=== PATIENT | male | born 1925 | race Caucasian/White ===

== ENCOUNTER 2016-05-09 08:37 | Inpatient (IN) ==
[2016-05-09] MEDS ORDERED: 0.9 % Sodium Chloride 1,000 ML IVC ONE (09:31)
--- NOTE | 2016-05-09 09:43 | Emergency Department Note ---
Disposition Clinical Impression: Elevated troponin I level, Generalized weakness, ANASTACIO (acute kidney injury), Dehydration, Nonspecific ST-T changes CKD (chronic kidney disease) Qualifiers: Chronic kidney disease stage: unspecified stage Qualified Code(s): N18.9 - Chronic kidney disease, unspecified Anemia Qualifiers: Anemia type: unspecified type Qualified Code(s): D64.9 - Anemia, unspecified Disposition: Admitted As Inpatient Condition: Fair Referrals: Gunner Harley DO [Primary Care Provider] - Forms: ED Satisfaction Letter Time of Disposition: 11:03 (Accepted to Dr. Hawkins. ) General Adult HPI - General Chief complaint: ED Weakness Stated complaint: weakness, vomiting Time Seen by Provider: 05/09/16 09:10 Source: patient Limitations: no limitations Nursing Notes Reviewed: Yes Vital Signs Reviewed: Yes - History of Present Illness HPI Narrative: Patient is an 89-year-old male with past history of diabetes, CKD. He presents today due to generalized weakness. He states that he had nausea and vomiting for the past 2 days, however, this is resolving. Now, he woke up today and just feels overall weak. He has not eaten or drank anything in 2-3 days. He denies any fevers, current nausea, vomiting, abdominal pain, chest pain, shortness of breath. He does admit to a dry cough that he states is baseline for him. Denies any difficulty with urination, burning with urination, blood in urine, blood in stool. Pain Scale: 3 - Related Data Home Medications Medication Instructions Recorded Confirmed Amlodipine [Norvasc] 5 mg PO QPM 02/11/15 05/09/16 Aspirin 81 mg PO QPM 02/11/15 05/09/16 Calcitriol [Rocaltrol] 0.25 mcg PO QAM 02/11/15 05/09/16 Doxazosin [Cardura] 2 mg PO HS 02/11/15 05/09/16 Isosorbide MONOnitrate [Isosorbide 60 mg PO QPM 02/11/15 05/09/16 Mononitrate] Levothyroxine [Synthroid] 75 mcg PO QAM 02/11/15 05/09/16 Torsemide [Demadex] 20 mg PO QAM 02/11/15 05/09/16 Allopurinol [Zyloprim 100 MG] 100 mg PO DAILY 05/09/16 05/09/16 Ferrous Sulfate [Iron] 325 mg PO BID 05/09/16 05/09/16 Omeprazole [Omeprazole] 10 mg PO DAILY 05/09/16 05/09/16 Sodium Bicarbonate 650 mg PO BID 05/09/16 05/09/16 Previous Rx's Medication Instructions Recorded Albuterol Sulfate [Albuterol 1 puff IH Q6HR 5 Days 02/14/15 Inhaler] Allergies Allergy/AdvReac Type Severity Reaction Status Date / Time furosemide [From Lasix] Allergy Rash Verified 05/09/16 10:43 Penicillins [PCN] Allergy Rash Verified 05/09/16 10:43 All systems ED: reviewed and negative except as stated. Past Medical History - Past Medical History Attestation: Yes The following information was validated with the patient. Medical history: Reports: coronary artery disease, diabetes, GERD, hypertension , kidney stones, myocardial infarction, other Surgical history: Reports: carotid endarterectomy, cholecystectomy, herniorrhaphy Psychiatric history: Reports: no psych history - Social History Smoking Status: Former smoker Smokeless Tobacco Status: No Alcohol use: Reports: none Drug use: Reports: none Physical Exam - General Limitations: no limitations General appearance: alert, in no apparent distress - Head Head exam: atraumatic, normocephalic, normal inspection - Eye Eye exam: Present: normal appearance, PERRL, EOMI - ENT ENT exam: normal exam, normal oropharynx, mucous membranes moist - Neck Neck exam: Present: normal inspection, full ROM, trachea midline - Chest Chest inspection: Present: normal inspection, symmetric chest wall rise - Respiratory Respiratory exam: Present: normal lung sounds bilaterally. Absent: respiratory distress, wheezes, stridor, accessory muscle use, prolonged expiratory phase - Cardiovascular Cardiovascular exam: Present: regular rate, normal rhythm, normal heart sounds - Abdominal Exam Abdominal exam: Present: soft, Non-Tender. Absent: tenderness, distention, guarding, rebound, rigidity - Extremities Exam Extremities exam: Present: normal inspection, full ROM. Absent: tenderness, pedal edema - Back Exam Back exam: Present: normal inspection, full ROM. Absent: tenderness - Neurological Exam Neurological exam: Present: alert, oriented X3, other (Patient has no deficit in sensory of bilateral upper or lower extremity. He does have some mild weakness of the right lower extremity but states that this is chronic. Otherwise, neuro exam was benign.). Absent: CN II-XII intact - Psychiatric Psychiatric exam: Present: normal affect, normal mood - Skin Skin exam: Present: warm, dry, intact, normal color Course Course Narrative: Vitals within normal limits. Physical exam did show some mild weakness of the right lower extremity, the patient states that this is chronic for him and as in present for several years. Otherwise, the rest of his neuro exam, heart, lung, abdomen exam was benign. Patient is likely dehydrated from no food or drink for the past 2 days. Will draw basic labs, chest x-ray, EKG, troponin and give 1 L normal saline bolus. Patient denies any current nausea or pain. 10:[address] changes, elevated trop at 0.07, anemia, acute on chronic CKD, and generalized weakness. Due to findings of nonspecific ST changes and elevated troponin along with generalized weakness, we will admit for observation. Patient does state that he feels better after getting 1 L normal saline bolus. This could all be from dehydration, but there is still concern for cardiac concern. Vital Signs Temperature 99.4 F 05/09/16 08:39 Pulse Rate 94 05/09/16 08:39 Respiratory Rate 16 05/09/16 08:39 Blood Pressure 142/71 05/09/16 08:39 O2 Sat by Pulse Oximetry 97 05/09/16 08:39 Temperature 99.4 F 05/09/16 08:39 Pulse Rate 96 05/09/16 10:48 Respiratory Rate 16 05/09/16 10:48 Blood Pressure 150/83 05/09/16 10:48 O2 Sat by Pulse Oximetry 95 05/09/16 10:48 Oxygen Delivery Oxygen Delivery Room Air Medical Decision Making - [facility] Narrative Medical decision making narrative: 0:[address] changes, elevated trop at 0.07, anemia, acute on chronic CKD, and generalized weakness. Due to findings of nonspecific ST changes and elevated troponin along with generalized weakness, we will admit for observation. Patient does state that he feels better after getting 1 L normal saline bolus. This could all be from dehydration, but there is still concern for cardiac concern. - Medical Records Medical records reviewed: Yes I reviewed the patient's medical records. - Lab Data Lab results reviewed: Yes I reviewed the patient's lab results. Result diagrams: 05/09/16 09:45 05/09/16 09:45 Lab Results 05/09/16 05/09/16 05/09/16 Range/Units 09:45 09:45 09:45 WBC 7.8 (4.3-11.1) K/mcL RBC 3.54 L (4.19-5.50) M/mcL Hgb 9.7 L (12.9-16.9) g/dL Hct 29.4 L (37.5-50.1) % MCV 83.1 (83.0-100.0) fL MCH 27.4 L (28.0-33.3) pg MCHC 33.0 (31.6-35.5) g/dL RDW 14.9 H (11.5-14.5) % Plt Count 138 L (140-400) K/mcL MPV 11.0 (9.4-12.4) fL Immature Gran % 0.4 (0-4) % Seg Neutrophils % 74.9 % Lymphocytes % 13.4 % Monocytes % 10.9 % Eosinophils % 0.1 % Basophils % 0.3 % Neutrophils # 5.8 (1.6-8.9) K/mcL Lymphocytes # 1.0 (0.6-4.6) K/mcL Monocytes # 0.9 (0.0-1.3) K/mcL Eosinophils # 0.0 (0.0-0.6) K/mcL Basophils # 0.0 (0.0-0.2) K/mcL Sodium 136 (136-145) mEq/L Potassium 3.6 (3.5-4.5) mEq/L Chloride 99 (98-109) mEq/L Carbon Dioxide 23 (19-29) mEq/L BUN 78 H (8-26) mg/dL Creatinine 2.74 H (0.72-1.25) mg/dL Est GFR ( Amer) 27 L (> 60) Est GFR (Non-Af Amer) 22 L (> 60) BUN/Creatinine Ratio 28 H (6-26) Glucose 197 H (70-99) mg/dL Calculated Osmolality 311 H (280-300) Calcium 9.0 (8.6-10.8) mg/dL Total Bilirubin 1.0 (0.2-1.2) mg/dL AST 10 (5-34) Units/L ALT 7 (0-55) Units/L Alkaline Phosphatase 72 (38-126) Units/L Troponin I 0.07 H* (0-0.03) ng/mL Serum Total Protein 6.6 (6.0-8.3) g/dL Albumin 2.8 L (3.5-5.0) g/dL Globulin 3.8 H (2.4-3.5) g/dL Albumin/Globulin Ratio 0.7 L (1.1-2.2) TSH 1.598 (0.350-4.840) mcIU/mL Urine Color (Yellow) Urine Clarity (Clear) Urine pH (5.0-8.0) pH Units Ur Specific [place] (1.010-1.025) Urine Protein (Neg-Trace) mg/dL Urine Glucose (UA) (Normal) mg/dL Urine Ketones (Negative) mg/dL Urine Blood (Negative) Urine Nitrite (Negative) Urine Bilirubin (Negative) Urine Urobilinogen (Normal) mg/dL Ur Leukocyte Esterase (Negative) Urine Microscopic RBC (0-3) per hpf Urine Microscopic WBC (0-3) per hpf Ur Squamous Epith Cells (None-Few) per lpf Urine Bacteria (None-Few) per hpf Hyaline Casts (None-Few) per lpf Ur Culture Indicated? (NO) 05/09/16 Range/Units 10:32 WBC (4.3-11.1) K/mcL RBC (4.19-5.50) M/mcL Hgb (12.9-16.9) g/dL Hct (37.5-50.1) % MCV (83.0-100.0) fL MCH (28.0-33.3) pg MCHC (31.6-35.5) g/dL RDW (11.5-14.5) % Plt Count (140-400) K/mcL MPV (9.4-12.4) fL Immature Gran % (0-4) % Seg Neutrophils % % Lymphocytes % % Monocytes % % Eosinophils % % Basophils % % Neutrophils # (1.6-8.9) K/mcL Lymphocytes # (0.6-4.6) K/mcL Monocytes # (0.0-1.3) K/mcL Eosinophils # (0.0-0.6) K/mcL Basophils # (0.0-0.2) K/mcL Sodium (136-145) mEq/L Potassium (3.5-4.5) mEq/L Chloride (98-109) mEq/L Carbon Dioxide (19-29) mEq/L BUN (8-26) mg/dL Creatinine (0.72-1.25) mg/dL Est GFR ( Amer) (> 60) Est GFR (Non-Af Amer) (> 60) BUN/Creatinine Ratio (6-26) Glucose (70-99) mg/dL Calculated Osmolality (280-300) Calcium (8.6-10.8) mg/dL Total Bilirubin (0.2-1.2) mg/dL AST (5-34) Units/L ALT (0-55) Units/L Alkaline Phosphatase (38-126) Units/L Troponin I (0-0.03) ng/mL Serum Total Protein (6.0-8.3) g/dL Albumin (3.5-5.0) g/dL Globulin (2.4-3.5) g/dL Albumin/Globulin Ratio (1.1-2.2) TSH (0.350-4.840) mcIU/mL Urine Color Yellow (Yellow) Urine Clarity Clear (Clear) Urine pH 5.5 (5.0-8.0) pH Units Ur Specific [place] 1.010 (1.010-1.025) Urine Protein 100 H (Neg-Trace) mg/dL Urine Glucose (UA) Normal (Normal) mg/dL Urine Ketones Negative (Negative) mg/dL Urine Blood Trace H (Negative) Urine Nitrite Negative (Negative) Urine Bilirubin Negative (Negative) Urine Urobilinogen Normal (Normal) mg/dL Ur Leukocyte Esterase Negative (Negative) Urine Microscopic RBC 5-15 H (0-3) per hpf Urine Microscopic WBC 0-3 (0-3) per hpf Ur Squamous Epith Cells Moderate H (None-Few) per lpf Urine Bacteria None Seen (None-Few) per hpf Hyaline Casts None Seen (None-Few) per lpf Ur Culture Indicated? NO (NO) - Radiology Data Radiology results reviewed: Yes I reviewed the patient's radiology results. Chest X-Ray 05/09/16 09:31 IMPRESSION: No acute cardiopulmonary disease. D/ / 05/09/2016 10:22:58 Sandoval Watkins MD / naomi Interpreting Provider: Sandoval Watkins MD - EKG Data EKG #1 EKG attestation: Yes I reviewed and interpreted this EKG. EKG results narrative: 05/09/2016 NSR. Rate 94. Left axis deviation. There is evidence of right bundle branch block, however, previous EKG shows possible right bundle-branch block. There is also a new T-wave inversion in V1 compared to previous EKG. Otherwise , ST depression in V4, V5 are consistent with previous EKG in February 2015. Overall - nonspecific ST changes. Attestation Statement - Attestation Attestation: Patient was seen with resident physician. I reviewed the history, physical, assessment and plan, and agree with the findings. I also personally evaluated this patient and had [id number] time with this patient. 89-year-old male presents to the emergency department with generalized weakness. Patient states he feels the weakness more in his legs and in his back. There is no focal weakness he just does not feel as well as usual. He and his family both note he has had worsening decreased by mouth intake. He basically is eating only applesauce at this point. His largest meal a day consist of an ache and a piece of sausage. He also drinks a lot of tea but not much liquids otherwise. Denies fevers chills chest pain or shortness of breath. On examination patient is alert and oriented with no focal neurologic deficits ENT is unremarkable. Heart and lungs are normal. Abdomen is soft and nontender. Extremities are unremarkable with good range of motion and no obvious deformities. Laboratory testing was done which reveals anemia this got worse renal failure it has gotten worse, and an elevated troponin. His EKG does not show any acute changes , and a chest x-ray is unremarkable. With a number of complaints of the patient has these can require admission for IV hydration and further evaluation of his renal function and correction of his anemia. Also essentially he is a failure to thrive situation with not taking good care of himself. Hospitalist will be notified and patient will be admitted to the floor. I agree with the resident physician assessment and plan.
[2016-05-09 09:59] LABS: Basophils % 0.3 %; Eosinophils % 0.1 %; Hematocrit 29.4 % (37.5-50.1); Hemoglobin 9.7 g/dL (12.9-16.9); Immature Granulocytes % 0.4 % (0-4); Lymphocytes % 13.4 %; Mean Corpuscular Hemoglobin 27.4 pg (28.0-33.3); Mean Corpuscular Volume 83.1 fL (83.0-100.0); Monocytes # 0.9 K/mcL (0.0-1.3); Monocytes % 10.9 %; Neutrophils # 5.8 K/mcL (1.6-8.9); Platelet Count 138 K/mcL (140-400); Red Blood Count 3.54 M/mcL (4.19-5.50); Red Cell Distribution Width 14.9 % (11.5-14.5); Segmented Neutrophils % 74.9 %
[2016-05-09 10:13] LABS: Albumin 2.8 g/dL (3.5-5.0); Albumin/Globulin Ratio 0.7 (1.1-2.2); Globulin 3.8 g/dL (2.4-3.5); Potassium 3.6 mEq/L (3.5-4.5); Total Protein 6.6 g/dL (6.0-8.3)
[2016-05-09 10:35] LABS: Thyroid Stimulating Hormone 1.598 mcIU/mL (0.350-4.840)
[2016-05-09 10:41] LABS: Bilirubin,Urine Negative (Negative); Blood,Urine Trace (Negative); Clarity,Urine Clear (Clear); Color,Urine Yellow (Yellow); Glucose,Urine (UA) Normal (Normal); Ketones,Urine Negative (Negative); Leukocyte Esterase,Urine Negative (Negative); Nitrite,Urine Negative (Negative); PH,Urine 5.5 pH Units (5.0-8.0); Protein,Urine 100 mg/dL (Neg-Trace); Urobilinogen,Urine Normal (Normal)
[2016-05-09 10:42] LABS: Bacteria,Urine None Seen per hpf (None-Few); Hyaline Casts,Urine None Seen per lpf (None-Few); Squamous Epithelial Cell,Urine Moderate per lpf (None-Few); WBC,Urine 0-3 per hpf (0-3)
[2016-05-09] MEDS ORDERED: Aspirin 325 MG TABLET PO ONE (10:52)
[2016-05-09] MEDS ORDERED: Nitroglycerin 0.4 MG TAB.SUBL SL PRN (11:53)
[2016-05-09] MEDS ORDERED: Naloxone 0.4 MG/ML INJ IVP PRN (11:54)
--- NOTE | 2016-05-09 12:00 | Internal Med History&Physical ---
Date of Encounter: 05/09/16 Time of Encounter: 11:57 Assessment and Plan (1) Generalized weakness Current visit: Yes Status: Acute Severe generalized weakness secondary to dehydration from constant nausea and vomiting likely viral in etiology Hold torsemide Continue IV fluids and supportive measures (2) Dehydration Current visit: Yes Status: Acute (3) CKD (chronic kidney disease) Current visit: Yes Status: Acute (4) Elevated troponin I level Current visit: Yes Status: Acute Likely secondary to demand ischemia exacerbated by dehydration and chronic kidney disease Monitor troponins, continue aspirin, check a lipid panel Order echocardiogram, no beta blockers due to history of bradycardia Consider cardiology consult and heparin drip if Troponins become more elevated (5) Diabetes Current visit: No Status: Acute Not insulin-dependent Continue insulin sliding scale Qualifiers: Diabetes mellitus type: type 2 Diabetes mellitus complication status: without complication 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 The patient will be admitted for observation. He is a DNR CC arrest DNI. Time spent on this admission 40 minutes. High risk for falling and due to elevated troponin Qualifiers: Anemia type: unspecified type Qualified Code(s): D64.9 - Anemia, unspecified Internal Medicine - H&P: HPI Chief complaint: Severe weakness Admitted From: Emergency Dept History of present illness: Mr. Hilario is a 89 year old male with a past medical history of chronic kidney disease stage IV, CAD, diabetes type 2 not insulin-dependent, comes to the emergency room complaining of 3 days of constant nausea vomiting and shortness of breath. He was very dehydrated, denied any sick contacts. Mentions that his legs are weaker and has no energy to walk. His troponin is 0.07 but he denies any chest pain. EKG shows an old right bundle branch block with a minimal T-wave inversion in a single lead/V1 and multiple PVCs. Chest x-ray is unremarkable, creatinine is 2.74 at baseline. Hemoglobin is 9.7. Denies any diarrhea, no fevers. No dysuria and no other complaints. He has not been able to eat much due to constant nausea. 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, nephrolithiasis, hypothyroidism, chronic kidney disease stage IV) Psychiatric history: no psych history - Past Surgical History Surgical History: carotid endarterectomy, cholecystectomy, herniorrhaphy, other (Last echocardiogram from January 2015 shows an ejection fraction of 55%) - Social History Smoking Status: Former smoker Smokeless Tobacco Status: No Alcohol use: none Drug use: none - Family History Mother Adopted: No Family Member Ethnicity: Non- Living Status: Hx Family Cardiac Disorders: Yes (hypertension) Hx Family Respiratory Disorders: No Hx Family Cancer: No Hx Family GI Disorders: No Hx Family Endocrine Disorder: No Hx Family Neuromuscular Disorders: No Hx Family Neurologic Disorders: Yes (stroke) Hx Family HEENT Disorders: No Hx Family Autoimmune Disorders: No Father Adopted: No Family Member Ethnicity: Non- Living Status: Hx Family Cardiac Disorders: No Hx Family Respiratory Disorders: No Hx Family Cancer: No Hx Family GI Disorders: No Hx Family Endocrine Disorder: No Hx Family Neuromuscular Disorders: No Hx Family Neurologic Disorders: No Hx Family HEENT Disorders: No Hx Family Autoimmune Disorders: No - Additional Family History Additional family history: Mother with hypertension and father with tuberculosis Internal Medicine - H&P: Meds Amlodipine [Norvasc] 5 mg PO QPM 02/11/15 [History] Aspirin 81 mg PO QPM 02/11/15 [History] Calcitriol [Rocaltrol] 0.25 mcg PO QAM 02/11/15 [History] Doxazosin [Cardura] 2 mg PO HS 02/11/15 [History] Isosorbide MONOnitrate [Isosorbide Mononitrate] 60 mg PO QPM 02/11/15 [History] Levothyroxine [Synthroid] 75 mcg PO QAM 02/11/15 [History] Torsemide [Demadex] 20 mg PO QAM 02/11/15 [History] Albuterol Sulfate [Albuterol Inhaler] 1 puff IH Q6HR 5 Days 02/14/15 [Rx] Allopurinol [Zyloprim 100 MG] 100 mg PO DAILY 05/09/16 [History] Ferrous Sulfate [Iron] 325 mg PO BID 05/09/16 [History] Omeprazole [Omeprazole] 10 mg PO DAILY 05/09/16 [History] Sodium Bicarbonate 650 mg PO BID 05/09/16 [History] Allergies furosemide [From Lasix] Allergy (Verified 05/09/16 10:43) Rash Penicillins [PCN] Allergy (Verified 05/09/16 10:43) Rash All Systems PM: A 10-system review of systems was performed and is negative for pertinent findings except as documented above in the HPI. Review of systems: Denies any chest pain, no shortness of breath, no abdominal pain. Other systems out of the 10 reviewed were negative - Constitutional Vitals: Temp Pulse Resp BP Pulse Ox 99.4 F 96 16 145/71 95 05/09/16 08:39 05/09/16 10:48 05/09/16 11:36 05/09/16 11:36 05/09/16 10:48 General appearance: Present: A&O X 3, no acute distress (Dehydrated) Exam: Severe generalized weakness - Head Head exam: Present: atraumatic, normocephalic - Eye Eye exam: Present: PERRL, conjuntiva pink, sclera anicteric Pupils: Present: PERRL - Neck Neck exam general surgery: Present: supple, trachea midline. Absent: lymphadenopathy - Respiratory Respiratory exam: Present: decreased breath sounds, CTAB. Absent: accessory muscle use, rales, rhonchi, wheezes - Cardiovascular Cardiovascular exam: Present: RRR, +S1, +S2. Absent: diastolic murmur, gallop, rubs, systolic murmur - GI/Abdominal GI/Abdominal exam: Present: normal bowel sounds, soft, no peritoneal signs. Absent: distended, tenderness - Extremities Exam Extremities exam: Present: warm, radial pulses palpable and symetrical. Absent : calf tenderness, cyanotic, pedal edema - Neurological Exam Neurological exam: Present: CN II-XII intact, oriented X3, no focal deficits. Absent: pronater drift, facial droop, speech deficit - Skin Skin exam: Present: dry, intact Internal Med - H&P Results - Labs CBC & Chem 7: 05/09/16 09:45 05/09/16 09:45
[2016-05-09] MEDS ORDERED: *HR* Enoxaparin 30 MG/0.3 ML SYRINGE SQ SCH (13:39)
[2016-05-09] MEDS: 0.9 % Sodium Chloride 1,000 ML IVC SCH (13:43)
[2016-05-09] MEDS ORDERED: *HR* Heparin 5,000 UNIT/ML VIAL SQ SCH (16:00)
[2016-05-09] MEDS ORDERED: amLODIPine 5 MG TABLET PO SCH (18:00)
[2016-05-09] MEDS: Isosorbide MONOnitrate (24 HR) 60 MG TAB.ER.24H PO SCH (18:19)
[2016-05-09] MEDS: Aspirin 81 MG TAB.CHEW PO SCH (18:19)
[2016-05-09] MEDS: Ondansetron 4 MG/2 ML VIAL IVP PRN (20:40)
[2016-05-10 01:39] LABS: Basophils % 0.1 %; Hematocrit 26.3 % (37.5-50.1); Hemoglobin 8.6 g/dL (12.9-16.9); Immature Granulocytes % 0.6 % (0-4); Lymphocytes # 0.7 K/mcL (0.6-4.6); Mean Corpuscular HGB Conc 32.7 g/dL (31.6-35.5); Mean Corpuscular Hemoglobin 27.1 pg (28.0-33.3); Mean Platelet Volume 11.8 fL (9.4-12.4); Monocytes # 0.7 K/mcL (0.0-1.3); Monocytes % 10.2 %; Neutrophils # 5.6 K/mcL (1.6-8.9); Platelet Count 126 K/mcL (140-400); Red Blood Count 3.17 M/mcL (4.19-5.50); Red Cell Distribution Width 14.8 % (11.5-14.5); Segmented Neutrophils % 79.1 %
[2016-05-10 01:54] LABS: Calcium 8.2 mg/dL (8.6-10.8); Chol/HDL Ratio 3.2 (0-4.9); Magnesium 1.8 mg/dL (1.6-2.6); Phosphorous 3.8 mg/dL (2.3-4.7); Potassium 3.9 mEq/L (3.5-4.5)
[2016-05-10] MEDS: Ondansetron 4 MG/2 ML VIAL IVP PRN ×2 (05:59→22:01)
[2016-05-10] MEDS: Acetaminophen 325 MG TABLET PO PRN (06:28)
--- NOTE | 2016-05-10 09:31 | ECHO - Doppler Report ---
Echocardiogram Name: Du Hilario Date of Study: 05/09/2016 Date: 1925 Ht: 67.0 in Medical Record#: [id number] Age: 89 Wt: 182.0 lb Gender: Male BSA: 1.94 Order #: [id number] Location: [facility] Room #: [id number] Reading Physician: Jody King DO Turntable Man: Radha Perkins Ordering Physician: Mino Suresh MD Primary Physician: Fred Harley DO Indications: Elevated troponin Impressions: Technically challenging study with suboptimal imaging. Difficult to estimate LVEF. Visually, LV systolic function is mild to moderately reduced. RV size and function are normal. Mild aortic and mitral regurgitation. No pulmonary hypertension. Moderate circumferential pericardial effusion, largest anteriorly. Respiratory variation is suboptimally obtained. RA collapse is present. However, BP is normal and IVC is not dilated with demonstration of collapse. There is no definite tamponade physiology on this study. The presence of RA collapse may indicate early findings. Findings: Study Quality * Suboptimal image quality. ECG Findings * Normal sinus rhythm with BBB and PVCs. Consider first degree AVB. Artifact present throughout tracing. Aortic Valve * Aortic valve not well visualized. * No aortic stenosis. * Mild aortic regurgitation. Mitral Valve * No mitral regurgitation. * Mild mitral regurgitation. * Structure appears normal. Tricuspid Valve * Tricuspid valve not well visualized. * Trace tricuspid regurgitation. Pulmonic Valve * Pulmonic valve is not well visualized. * No pulmonic stenosis. * No pulmonic regurgitation. Pulmonary Artery * Pulmonary artery not well visualized. Left Ventricle * LV systolic function visually appears mild to moderately reduced. * Indeterminate diastolic function. Right Ventricle * Normal right ventricular structure and function. Left Atrium * Normal left atrial size. Right Atrium * Normal right atrial size. Interatrial Septum * No evidence of PFO by color Doppler. Pericardium * There is a moderate pericardial effusion present. IVC * IVC is not enlarged and collapses about 50%. History Hypertension Diabetes Family History of CAD History of CAD/PTCA Myocardial Infarction Congestive Heart Failure 11/26/2013 a Previous Echo was performed. Measurements: BP: 143/ 73 2D Normal Values IVSd: 1.00 cm 0.6 - 1.0 cm LVIDd: 4.10 cm 3.7 - 5.6 cm LVPWd: 1.00 cm 0.6 - 1.1 cm LVIDs: 3.10 cm 1.5 - 3.6 cm AO: 3.20 cm < 4.0 cm LA: 5.00 cm 2.0 - 4.0cm %FS: 24.40 cm >25 % LA volume: 82 Mitral Valve Peak E:1.63 m/sec Peak E' Lat Ed:8.29 cm/s Peak E' Med Ed:4.39 cm/s E/E' Lat Ratio:19.7 E/E' Med Ratio:37.1 Aortic Valve AI pressure Half-time: 425.00 msec Tricuspid Valve TV Regurg Peak Grad: 19.00mmHg TV Regurg Peak Ed: 2.18m/sec Updated by Jody King on 05/10/2016 9:20:59 AM electronically signed on 05/10/2016 9:24:07 AM with status of Final Wall Motion [place]: 1=Normal, 2=Hypokinesis, 3=Akinesis, 4=Dyskinesis, 5=Aneurysmal, 6=Hyperkinetic, X=Not Visualized (Blank)=Missing
--- NOTE | 2016-05-10 10:07 | Cardiology Consult Note ---
Date of Encounter: 05/10/16 Time of Encounter: 10:05 Assessment and Plan (1) Elevated troponin I level Current Visit: Yes Status: Acute Flat and adynamic--0.07, 0.07, 0.06, 0.07 in setting of suspected viral illness with persistent nausea and vomiting, dehydration and CKD stage 4. Likely demand ischemia. Nondiagnostic for ACS. Echo 01/2015 EF 55%. Reports atypical chest pain--occasional left sided that is relieved with tums and gas x. Per pt, LHC has been discussed by his girl friday Dr. Rhoades in the past, but they have ultimately decided against it due to his CKD Stage 4. He is DNR-CCA- DNI, not interested in having invasive evaluation--also not warranted in his current situation. No further cardiac work-up necessary while inpt. Anticipate sign off once seen and evaluated by Dr. Alegria. Can follow-up as outpt with Dr. Rhoades. (2) Anemia Current Visit: Yes Status: Acute History of anemia, baseline HGB 9.6-12.4. HGB today 8.9--may be dilutional s/p rehydration. Management per primary team. Pt denies any active bleeding. Qualifiers: Anemia type: unspecified type Qualified Code(s): D64.9 - Anemia, unspecified (3) CKD (chronic kidney disease) Current Visit: Yes Status: Acute Followed by nephrology as outpt. Currently near baseline. Qualifiers: Chronic kidney disease stage: stage 4 (severe) Qualified Code(s): N18.4 - Chronic kidney disease, stage 4 (severe) (4) Essential hypertension Current Visit: No Status: Chronic Not at goal--170s systolic this AM. Will increase Norvasc. Discussion w patient/family: The assessment and plan as outlined above was discussed with the patient and/or family members who expressed understanding and agreement. All questions were answered. Thank you for involving us in the care of your patient. Please call with any questions. I will discuss all the above with Dr. Alegria and make changes as necessary. History of Present Illness Consult date: 05/10/16 Requesting physician: Mino Suresh Consult reason: elevated troponin Chief complaint: nausea/vomiting History of present illness: Mr. Hilario is a 89 year old male with PMH past medical history of chronic kidney disease stage IV, carotid artery disease, diabetes type 2 not insulin- dependent, presented to ED complaining of 3 days of constant nausea vomiting and worsening shortness of breath. He was found to be dehydrated, denied any sick contacts. Mentions that his legs are weaker and has no energy to walk. He denies any chest pain currently. Reports yesterday evening he had a brief episode of left sided chest pain. He states when he experiences this at home it is relieved with Tums or Gas X. Troponins found to be 0.07, 0.07, 0.06, 0.07 and cardiology was consulted. Past Med Surg Social Fam HX - Past Medical History Medical history: coronary artery disease, diabetes, GERD, hypertension, kidney stones, myocardial infarction, other Psychiatric history: no psych history - Past Surgical History Surgical History: carotid endarterectomy, cholecystectomy, herniorrhaphy, other - Social History Smoking Status: Former smoker Smokeless Tobacco Status: No Alcohol use: none Drug use: none - Family History Mother Adopted: No Family Member Ethnicity: Non- Living Status: Hx Family Cardiac Disorders: Yes (hypertension) Hx Family Respiratory Disorders: No Hx Family Cancer: No Hx Family GI Disorders: No Hx Family Endocrine Disorder: No Hx Family Neuromuscular Disorders: No Hx Family Neurologic Disorders: Yes (stroke) Hx Family HEENT Disorders: No Hx Family Autoimmune Disorders: No Father Adopted: No Family Member Ethnicity: Non- Living Status: Hx Family Cardiac Disorders: No Hx Family Respiratory Disorders: No Hx Family Cancer: No Hx Family GI Disorders: No Hx Family Endocrine Disorder: No Hx Family Neuromuscular Disorders: No Hx Family Neurologic Disorders: No Hx Family HEENT Disorders: No Hx Family Autoimmune Disorders: No Medications and Allergies Amlodipine [Norvasc] 5 mg PO QPM 02/11/15 [History] Aspirin 81 mg PO QPM 02/11/15 [History] Calcitriol [Rocaltrol] 0.25 mcg PO QAM 02/11/15 [History] Doxazosin [Cardura] 2 mg PO HS 02/11/15 [History] Isosorbide MONOnitrate [Isosorbide Mononitrate] 60 mg PO QPM 02/11/15 [History] Levothyroxine [Synthroid] 75 mcg PO QAM 02/11/15 [History] Torsemide [Demadex] 20 mg PO QAM 02/11/15 [History] Albuterol Sulfate [Albuterol Inhaler] 1 puff IH Q6HR 5 Days 02/14/15 [Rx] Allopurinol [Zyloprim 100 MG] 100 mg PO DAILY 05/09/16 [History] Ferrous Sulfate [Iron] 325 mg PO BID 05/09/16 [History] Omeprazole [Omeprazole] 10 mg PO DAILY 05/09/16 [History] Sodium Bicarbonate 650 mg PO BID 05/09/16 [History] Allergies furosemide [From Lasix] Allergy (Verified 05/09/16 10:43) Rash Penicillins [PCN] Allergy (Verified 05/09/16 10:43) Rash All Systems Review: A 10-system review of systems was performed and is negative for pertinent findings except as documented above in the HPI. - Constitutional Constitutional: anorexia, fever(s), malaise - Cardiovascular Cardiovascular: as per HPI, chest pain at rest, dyspnea at rest, dyspnea on exertion - Respiratory Respiratory: dyspnea - Gastrointestinal Gastrointestinal: nausea Physical Examination Vital Signs, Last 4 Hours Temp Pulse Resp BP Pulse Ox 05/10/16 08:34 92 L 05/10/16 07:09 100.7 F H 99 18 172/64 92 L Vital Signs Temp Pulse Resp BP Pulse Ox 05/10/16 08:34 92 L 05/10/16 07:09 100.7 F H 99 18 172/64 92 L 05/10/16 03:48 99.9 F H 95 16 158/74 93 L 05/09/16 23:23 100.4 F H 88 18 152/69 93 L 05/09/16 20:36 163/65 05/09/16 20:06 92 L 05/09/16 19:41 99.6 F 90 18 197/66 93 L 05/09/16 15:36 99.2 F 80 15 141/62 96 05/09/16 12:19 99.4 F 85 15 143/73 95 05/09/16 11:36 16 145/71 05/09/16 10:48 96 16 150/83 95 Intake and Output 05/09/16 05/10/16 05/10/16 23:59 07:59 15:59 Intake Total 240 / 240 1950 / 1950 Output Total 400 / 400 200 / 200 Balance -160 / -160 1750 / 1750 Intake: IV Fluids 1000 / 1000 0.9 % Sodium Chloride 1, 1000 / 1000 000 ML @ 60 mls/hr IVC . [id number] [facility] Rx#: [id number] Oral 240 / 240 950 / 950 Output: Urine 350 / 350 200 / 200 Emesis 50 / 50 Other: Meal Dinner Percent of Meal Consumed 100% Weight 82.418 kg Blood Glucose* 244 190 Patient Weight 05/10/16 23:59 Weight 82.418 kg General: Conversant, No Apparent Distress HEENT: Atraumatic, Normocephaly, Mucus Membranes Moist Neck: No JVD, Normal carotid pulses Cardiac: Reg Rate and Rhythm, Normal S1 and S2, No Murmur Lungs: Normal Breath Sounds, No Wheeze, Rales, Rhonchi Neuro: Alert and responsive, No focal deficits noted Abdomen: Soft, Non-Tender Skin: No rashes noted on visualized skin Musculoskeletal: No Chest Wall Tenderness Extremities: Other (mild BLE edema) Results 05/10/16 01:20 05/10/16 01:20 Lab Results 05/09/16 05/09/16 05/10/16 12:38 18:08 01:20 WBC Hgb Hct Plt Count Sodium Potassium Chloride Carbon Dioxide BUN Creatinine Glucose Calcium Magnesium Troponin I 0.07 H* 0.06 H* 0.07 H* 05/10/16 05/10/16 01:20 01:20 WBC 7.1 Hgb 8.6 L Hct 26.3 L Plt Count 126 L Sodium 135 L Potassium 3.9 Chloride 101 Carbon Dioxide 23 BUN 74 H Creatinine 2.61 H Glucose 246 H Calcium 8.2 L Magnesium 1.8 Troponin I Short CBC 05/10/16 Range/Units 01:20 WBC 7.1 (4.3-11.1) K/mcL Hgb 8.6 L (12.9-16.9) g/dL Hct 26.3 L (37.5-50.1) % Plt Count 126 L (140-400) K/mcL Neutrophils # 5.6 (1.6-8.9) K/mcL BMP 05/10/16 05/09/16 Range/Units 01:20 09:45 Sodium 135 L 136 (136-145) mEq/L Potassium 3.9 3.6 (3.5-4.5) mEq/L Chloride 101 99 (98-109) mEq/L Carbon Dioxide 23 23 (19-29) mEq/L BUN 74 H 78 H (8-26) mg/dL Creatinine 2.61 H 2.74 H (0.72-1.25) mg/dL Glucose 246 H 197 H (70-99) mg/dL Calcium 8.2 L 9.0 (8.6-10.8) mg/dL Cardiac Enzymes 05/10/16 05/09/16 05/09/16 Range/Units 01:20 18:08 12:38 Troponin I 0.07 H* 0.06 H* 0.07 H* (0-0.03) ng/mL 05/09/16 Range/Units 09:45 Troponin I 0.07 H* (0-0.03) ng/mL Liver Function 05/09/16 Range/Units 09:45 Total Bilirubin 1.0 (0.2-1.2) mg/dL AST 10 (5-34) Units/L ALT 7 (0-55) Units/L Alkaline Phosphatase 72 (38-126) Units/L Albumin 2.8 L (3.5-5.0) g/dL Urine 05/09/16 Range/Units 10:32 Urine Color Yellow (Yellow) Urine Clarity Clear (Clear) Urine pH 5.5 (5.0-8.0) pH Units Ur Specific [place] 1.010 (1.010-1.025) Urine Protein 100 H (Neg-Trace) mg/dL Urine Glucose (UA) Normal (Normal) mg/dL Impressions Chest X-Ray 05/09/16 09:31 IMPRESSION: No acute cardiopulmonary disease. D/ / 05/09/2016 10:22:58 Sandoval Watkins MD / earnold Interpreting Provider: Sandoval Watkins MD Active Medications Acetaminophen (Tylenol) 650 mg PO Q6HR PRN PRN Reason: Mild Pain (1-3) Stop: 11/08/16 11:55 Last Admin: 05/10/16 06:28 Dose: 650 mg Albuterol/Ipratropium (Duoneb) 3 ml IH [id number] PRN; Protocol PRN Reason: Shortness Of Breath/Wheezing Stop: 11/08/16 11:53 Allopurinol (Zyloprim) 100 mg PO DAILY NNAMDI Stop: 11/09/16 09:01 Last Admin: 05/10/16 08:28 Dose: 100 mg Amlodipine Besylate (Norvasc) 5 mg PO QPM NNAMDI PRN Reason: Protocol Stop: 11/08/16 18:01 Last Admin: 05/09/16 18:19 Dose: 5 mg Aspirin (Aspirin) 81 mg PO QPM NNAMDI Stop: 11/08/16 18:01 Last Admin: 05/09/16 18:19 Dose: 81 mg Atorvastatin Calcium (Lipitor) 40 mg PO HS [facility] Stop: 11/08/16 21:01 Last Admin: 05/09/16 19:52 Dose: 40 mg Calcitriol (Rocaltrol) 0.25 mcg PO QAM [facility] Stop: 11/09/16 09:01 Last Admin: 05/10/16 08:28 Dose: 0.25 mcg Doxazosin Mesylate (Cardura) 2 mg PO HS [facility] Stop: 11/08/16 21:01 Last Admin: 05/09/16 22:05 Dose: 2 mg Hydralazine HCl (Hydralazine) 10 mg IVP Q6HR PRN PRN Reason: Hypertension Stop: 11/08/16 11:53 Last Admin: 05/09/16 19:52 Dose: 10 mg Sodium Chloride (0.9 % Sodium Chloride) 1,000 mls @ 60 mls/hr IVC .[id number] [facility] Stop: 11/08/16 12:01 Last Infusion: 05/10/16 06:35 Dose: Infused Isosorbide Mononitrate (Imdur) 60 mg PO QPM NNAMDI Stop: 11/08/16 18:01 Last Admin: 05/09/16 18:19 Dose: 60 mg Levothyroxine Sodium (Synthroid) 75 mcg PO QAM [facility] Stop: 11/09/16 09:01 Last Admin: 05/10/16 08:28 Dose: 75 mcg Morphine Sulfate (Morphine Sulfate) 2 mg IV Q3H PRN PRN Reason: Pain Stop: 11/08/16 11:54 Naloxone HCl (Narcan) 0.4 mg IVP Q2MIN PRN PRN Reason: Opioid Reversal Stop: 11/08/16 11:55 Nitroglycerin (Nitroglycerin) 0.4 mg SL Q5MIN PRN PRN Reason: Chest Pain Stop: 11/08/16 11:54 Last Admin: 05/09/16 22:17 Dose: 0.4 mg Omeprazole (Prilosec) 40 mg PO DAILY@0630 NNAMDI PRN Reason: Protocol Stop: 11/09/16 06:31 Last Admin: 05/10/16 05:55 Dose: 40 mg Ondansetron HCl (Zofran) 4 mg IVP Q8HR PRN PRN Reason: Nausea And Vomiting Stop: 11/08/16 11:55 Last Admin: 05/10/16 05:59 Dose: 4 mg Sodium Bicarbonate (Sodium Bicarbonate) 650 mg PO BID [facility] Stop: 11/08/16 21:01 Last Admin: 05/10/16 08:28 Dose: 650 mg - Imaging and Cardiology Chest Xray: report reviewed Echo: report reviewed (02/11/2015 EF 55%, SR with frequent PVCs, mild concentric LVH, moderately dilated LA, mild-moderate MR, mild phtn RVSP 39mmHg.) Holter: report reviewed (03/07/15--sinus arin with 1st degree AV block, AVG HR 58) - EKG Interpretation EKG results cardiology: personally reviewed, other (12 hour tele AVG HR 90, no significant pauses or arrhythmias) Consult Discharge Plan - Plan Referrals: Gunner Harley DO [Primary Care Provider] -
--- NOTE | 2016-05-10 11:16 | Electrocardiograph Report ---
[facility] Test Date: 2016-05-09 Pat Name: Du Hilario Department: 103 Room: 3B31 Gender: M Quality Lead: SUJEY : 1925 Requested By: Clint Perez Order Number: [id number] Reading MD: Jody King Measurements Intervals [place] Rate: 94 P: 252 [place]: 302 QRS: -51 QRSD: 148 T: 17 QT: 385 QTc: 437 Interpretive Statements SINUS RHYTHM WITH FIRST DEGREE AV BLOCK WITH VENTRICULAR PREMATURE COMPLEXES RIGHT BUNDLE BRANCH BLOCK LEFT ANTERIOR FASCICULAR BLOCK INFERIOR MYOCARDIAL INFARCTION, PROBABLY OLD Electronically Signed On 05-10-16 11:15:37 EST by Jody King
--- NOTE | 2016-05-10 11:23 | Electrocardiograph Report ---
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
[2016-05-10] MEDS ORDERED: D5% in Water 1,000 ML IV PRN (11:37)
[2016-05-10] MEDS ORDERED: *HR* Dextrose 50 % in Water (Syg) 50 ML SYRINGE IVP PRN (11:37)
[2016-05-10] MEDS ORDERED: Dextrose Gel 15 GM PO PRN ×2 (11:37)
[2016-05-10] MEDS: Insulin LISPRO 300 UNITS/3 ML VIAL SQ SCH ×2 (17:38→21:02)
[2016-05-10] MEDS: Aspirin 81 MG TAB.CHEW PO SCH (17:38)
[2016-05-10] MEDS: Isosorbide MONOnitrate (24 HR) 60 MG TAB.ER.24H PO SCH (17:38)
[2016-05-10] MEDS: amLODIPine 5 MG TABLET PO SCH (17:38)
--- NOTE | 2016-05-10 19:43 | Internal Med Progress Note ---
Date of Encounter: 05/10/16 Time of Encounter: 19:40 - Assessment and plan (1) ANASTACIO (acute kidney injury) Current Visit: Yes Status: Acute (2) Generalized weakness Current Visit: Yes Status: Acute (3) Acute worsening of stage 3 chronic kidney disease Current Visit: No Status: Acute (4) Diastolic CHF, chronic Current Visit: No Status: Chronic (5) Essential hypertension Current Visit: No Status: Chronic (6) Type 2 diabetes mellitus Current Visit: No Status: Chronic Assessment and plan: continue gentle hydration, monitor for improvement. continue telemetry, appreciate cardiology recommendations. continue allopurinol worsening BP, will add b-jones. continue norvasc and prn hydralazine. Continue Synthroid. Continue sodium bicarbonate. Qualifiers: Diabetes mellitus complication status: with kidney complications Chronic kidney disease stage: stage 3 (moderate) Qualified Code(s): E11.22 - Type 2 diabetes mellitus with diabetic chronic kidney disease; N18.3 - Chronic kidney disease, stage 3 (moderate) - Subjective Interval history: Patient evaluated, seen lying in bed. says he has gouty arthritis pain in his toes and will like to continue his Allopurinol. - Constitutional Vitals: Temp Pulse Resp BP Pulse Ox 99.6 F 110 17 171/71 93 L 05/10/16 19:04 05/10/16 19:04 05/10/16 19:04 05/10/16 19:04 05/10/16 19:04 General appearance: Present: A&O X 3, no acute distress (Dehydrated) - Head Head exam: Present: atraumatic, normocephalic - Eye Eye exam: Present: PERRL, conjuntiva pink, sclera anicteric Pupils: Present: PERRL - Neck Neck exam general surgery: Present: supple, trachea midline. Absent: lymphadenopathy - Respiratory Respiratory exam: Present: CTAB. Absent: accessory muscle use, rales, rhonchi, wheezes - Cardiovascular Cardiovascular exam: Present: RRR, +S1, +S2. Absent: diastolic murmur, gallop, rubs, systolic murmur - GI/Abdominal GI/Abdominal exam: Present: normal bowel sounds, soft, no peritoneal signs. Absent: distended, tenderness - Extremities Exam Extremities exam: Present: warm, radial pulses palpable and symetrical. Absent : calf tenderness, cyanotic, pedal edema Additional comments: right middle finger has severe gout tophi, no swelling around the feet or toes bilaterally. - Neurological Exam Neurological exam: Present: CN II-XII intact, oriented X3, no focal deficits. Absent: pronater drift, facial droop, speech deficit - Skin Skin exam: Present: dry, intact Internal Medicine: Result - Labs CBC & Chem 7: 05/10/16 01:20 05/10/16 01:20 Labs: Short CBC 05/10/16 Range/Units 01:20 WBC 7.1 (4.3-11.1) K/mcL Hgb 8.6 L (12.9-16.9) g/dL Hct 26.3 L (37.5-50.1) % Plt Count 126 L (140-400) K/mcL Neutrophils # 5.6 (1.6-8.9) K/mcL BMP 05/10/16 01:20 Sodium 135 L Potassium 3.9 Chloride 101 Carbon Dioxide 23 BUN 74 H Creatinine 2.61 H Glucose 246 H Calcium 8.2 L Cardiac Enzymes 05/10/16 Range/Units 01:20 Troponin I 0.07 H* (0-0.03) ng/mL Consult Discharge Plan - Plan Referrals: Gunner Harley DO [Primary Care Provider] -
[2016-05-10] MEDS: 0.9 % Sodium Chloride 1,000 ML IVC SCH (21:28)
[2016-05-11 04:34] LABS: Basophils % 0.2 %; Eosinophils % 0.1 %; Hematocrit 28.6 % (37.5-50.1); Hemoglobin 9.4 g/dL (12.9-16.9); Immature Granulocytes % 0.5 % (0-4); Lymphocytes # 1.1 K/mcL (0.6-4.6); Lymphocytes % 11.4 %; Mean Corpuscular HGB Conc 32.9 g/dL (31.6-35.5); Mean Corpuscular Hemoglobin 27.6 pg (28.0-33.3); Mean Corpuscular Volume 84.1 fL (83.0-100.0); Mean Platelet Volume 11.4 fL (9.4-12.4); Monocytes % 10.1 %; Neutrophils # 7.8 K/mcL (1.6-8.9); Platelet Count 140 K/mcL (140-400); Segmented Neutrophils % 77.7 %
[2016-05-11 04:48] LABS: Calcium 8.5 mg/dL (8.6-10.8); Potassium 4.2 mEq/L (3.5-4.5)
[2016-05-11] MEDS: Insulin LISPRO 300 UNITS/3 ML VIAL SQ SCH ×4 (08:10→22:22)
--- NOTE | 2016-05-11 11:14 | ECHO - Doppler Report ---
Limited Echocardiogram Name: Du Hilario Date of Study: 05/11/2016 Date: 1925 Ht: 67.0 in Medical Record#: [id number] Age: 89 Wt: 181.0 lb Gender: Male BSA: 1.94 Order #: [id number] Location: [facility] Room #: 3B31 Reading Physician: Brad Vargas DO, [facility] Venue Coordinator: Rashawn Roque RDCS Ordering Physician: Nelson Velarde CNP Primary Physician: Fred Harley DO Indications: Evaluate effusion Impressions: LVEF 50-55%. Normal LV chamber size, wall thickness and function. Atypical septal motion consistent with bundle branch block. Normal right ventricular structure and function. Small to moderate circumferential pericardial effusion present. Inversion of the right atrium noted in late diastole (which corresponds with atrial systole). There is no definite 2D echocardiographic evidence of tamponade. PW Doppler of mitral and tricuspid inflow not performed. Clinical correlation suggested. Repeat study as clinically indicated. Left Ventricular Wall Motion: Rest Echo Findings All wall segments showed normal motion. Findings: Study Quality * Technically adequate exam. ECG Findings * Sinus rhythm with a bundle branch block and PVCs. Left Ventricle * LVEF 50-55%. * Normal LV chamber size, wall thickness and function. * Atypical septal motion consistent with bundle branch block. Right Ventricle * Normal right ventricular structure and function. Left Atrium * Normal left atrial size. Right Atrium * Normal right atrial size. Inversion of the right atrium noted in late diastole (which corresponds with atrial systole). IVC * Normal IVC dimensions and inspiratory collapse. Pericardium * There is a small to moderate circumferential pericardial effusion present. * There is no definite 2D echocardiographic evidence of tamponade. * PW Doppler of mitral and tricuspid inflow not performed. History Hypertension Diabetes Family History of CAD History of CAD/PTCA Myocardial Infarction Congestive Heart Failure Valvular Disease 05/09/16 a Previous Echo was performed. Measurements: BP: 153/ 63 2D Normal Values RVIDd: 2.69 cm <2.7 cm IVSd: .90 cm 0.6 - 1.0 cm LVIDd: 6.08 cm 3.7 - 5.6 cm LVPWd: .94 cm 0.6 - 1.1 cm LVIDs: 4.40 cm 1.5 - 3.6 cm LA: 4.00 cm 2.0 - 4.0cm %FS: 27.60 cm >25 % LA volume: Updated by Brad Vargas DO, MADHU, FERMIN, JOSH on 05/11/2016 11:07:22 AM electronically signed on 05/11/2016 11:11:00 AM with status of Final Wall Motion [place]: 1=Normal, 2=Hypokinesis, 3=Akinesis, 4=Dyskinesis, 5=Aneurysmal, 6=Hyperkinetic, X=Not Visualized (Blank)=Missing
--- NOTE | 2016-05-11 11:36 | Cardiology Progress Note ---
Date of Encounter: 05/11/16 Time of Encounter: 11:36 Assessment and Plan (1) Acute myopericarditis Current Visit: Yes Status: Acute TTE yesterday showed mild-moderate LV systolic dysfunction with moderate pericardial effusion, which is new. Overall clinical picture is most consistent with a viral infection with myopericarditis. Patient is overall feeling better and hemodynamically stable. Recommend hydration (PO with IV fluids as needed). Repeat limited study this AM shows EF 50-55%. Small-moderate circumferential pericardial effusion, no definite evidence of tamponade. Recommend repeat outpt limited echo in 1 week, follow-up as outpt with Dr. Rhoades in 2-3 weeks. We will coordinate all of this through our office. Cardiology is signing off. Reconsult PRN. (2) Elevated troponin I level Current Visit: Yes Status: Acute Flat and adynamic--0.07, 0.07, 0.06, 0.07 in setting of suspected viral illness with persistent nausea and vomiting, dehydration and CKD stage 4. Likely demand ischemia. Nondiagnostic for ACS. Echo 01/2015 EF 55%. Reports atypical chest pain--occasional left sided that is relieved with tums and gas x. 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 Rhoades in the past, but they have ultimately decided against it due to his CKD Stage 4. He is DNR-CCA- DNI, not interested in having invasive evaluation--also not warranted in his current situation. (3) Anemia Current Visit: Yes Status: Acute History of anemia, baseline HGB 9.6-12.4. HGB yesterday 8.9, today improved 9.4. No evidence of bleeding. Qualifiers: Anemia type: unspecified type Qualified Code(s): D64.9 - Anemia, unspecified (4) CKD (chronic kidney disease) Current Visit: Yes Status: Acute Followed by nephrology as outpt. Currently near baseline, slightly worsened from yesterday. Management per primary team. Qualifiers: Chronic kidney disease stage: stage 4 (severe) Qualified Code(s): N18.4 - Chronic kidney disease, stage 4 (severe) (5) Essential hypertension Current Visit: No Status: Chronic Norvasc increased yesterday. Continue to adjust antihypertensives as necessary. Most recent reading 140s systolic. Discussion w patient/family: The assessment and plan as outlined above was discussed with the patient and/or family members who expressed understanding and agreement. All questions were answered. Thank you for involving us in the care of your patient. Please call with any questions. I will discuss all the above with Dr. Alegria and make changes as necessary. Subjective Principal diagnosis: Viral illness, viral myocarditis Interval history: Echo yesterday showed mild-moderate LV systolic dysfunction with moderate pericardial effusion, which is new, most consistent with a viral infection with myopericarditis. Patient is overall feeling better and continues to be hemodynamically stable. Repeat TTE today shows EF 50-55%, small-moderate circumferential pericardial effusion without definite evidence of tamponade. Pt complains of weakness this AM. Objective Vital Signs, Last 4 Hours Temp Pulse Resp BP Pulse Ox 05/11/16 11:00 98.1 F 72 16 142/89 91 L 05/11/16 07:47 98.8 F 97 18 153/63 91 L Vital Signs Temp Pulse Resp BP Pulse Ox 05/11/16 11:00 98.1 F 72 16 142/89 91 L 05/11/16 07:47 98.8 F 97 18 153/63 91 L 05/11/16 04:34 99.1 F 97 18 162/56 92 L 05/10/16 23:08 99.0 F 70 18 142/69 93 L 05/10/16 19:04 99.6 F 110 17 171/71 93 L 05/10/16 16:01 98.7 F 77 15 182/78 95 Intake and Output 05/10/16 05/11/16 05/11/16 23:59 07:59 15:59 Intake Total 1140 / 1140 800 / 800 240 / 240 Output Total 250 / 250 150 / 150 Balance 890 / 890 800 / 800 90 / 90 Intake: Oral 1140 / 1140 800 / 800 240 / 240 Output: Urine 250 / 250 150 / 150 Other: Meal Dinner Breakfast Percent of Meal Consumed 70% 100% # Urine Diapers 1 Blood Glucose* 158 129 196 General: Conversant, No Apparent Distress HEENT: Atraumatic, Normocephaly, Mucus Membranes Moist Neck: No JVD, Normal carotid pulses Cardiac: Reg Rate and Rhythm, Normal S1 and S2, No Murmur Lungs: Normal Breath Sounds, No Wheeze, Rales, Rhonchi Neuro: Alert and responsive, No focal deficits noted Abdomen: Soft, Non-Tender Skin: No rashes noted on visualized skin Musculoskeletal: No Chest Wall Tenderness Extremities: No Clubbing, No Cyanosis, No Edema, Normal Pulses Results 05/11/16 04:23 05/11/16 04:23 Lab Results 05/11/16 05/11/16 04:23 04:23 WBC 10.0 Hgb 9.4 L Hct 28.6 L Plt Count 140 Sodium 137 Potassium 4.2 Chloride 100 Carbon Dioxide 23 BUN 78 H Creatinine 2.89 H Glucose 148 H Calcium 8.5 L Short CBC 05/11/16 Range/Units 04:23 WBC 10.0 (4.3-11.1) K/mcL Hgb 9.4 L (12.9-16.9) g/dL Hct 28.6 L (37.5-50.1) % Plt Count 140 (140-400) K/mcL Neutrophils # 7.8 (1.6-8.9) K/mcL BMP 05/11/16 Range/Units 04:23 Sodium 137 (136-145) mEq/L Potassium 4.2 (3.5-4.5) mEq/L Chloride 100 (98-109) mEq/L Carbon Dioxide 23 (19-29) mEq/L BUN 78 H (8-26) mg/dL Creatinine 2.89 H (0.72-1.25) mg/dL Glucose 148 H (70-99) mg/dL Calcium 8.5 L (8.6-10.8) mg/dL Active Medications Acetaminophen (Tylenol) 650 mg PO Q6HR PRN PRN Reason: Mild Pain (1-3) Stop: 11/08/16 11:55 Last Admin: 05/10/16 06:28 Dose: 650 mg Albuterol/Ipratropium (Duoneb) 3 ml IH [id number] PRN; Protocol PRN Reason: Shortness Of Breath/Wheezing Stop: 11/08/16 11:53 Allopurinol (Zyloprim) 100 mg PO DAILY [facility] Stop: 11/09/16 09:01 Last Admin: 05/11/16 09:20 Dose: 100 mg Amlodipine Besylate (Norvasc) 10 mg PO QPM NNAMDI PRN Reason: Protocol Stop: 11/09/16 18:01 Last Admin: 05/10/16 17:38 Dose: 10 mg Aspirin (Aspirin) 81 mg PO QPM [facility] Stop: 11/08/16 18:01 Last Admin: 05/10/16 17:38 Dose: 81 mg Atorvastatin Calcium (Lipitor) 40 mg PO HS [facility] Stop: 11/08/16 21:01 Last Admin: 05/10/16 20:57 Dose: 40 mg Calcitriol (Rocaltrol) 0.25 mcg PO QAM NNAMDI Stop: 11/09/16 09:01 Last Admin: 05/11/16 09:19 Dose: 0.25 mcg Dextrose/Water (Dextrose 50% (Syg)) 25 ml IVP AD PRN PRN Reason: Hypoglycemia Stop: 11/09/16 11:38 Doxazosin Mesylate (Cardura) 2 mg PO HS [facility] Stop: 11/08/16 21:01 Last Admin: 05/10/16 20:57 Dose: 2 mg Glucagon (Glucagen) 1 mg IM ONCE PRN PRN Reason: Hypoglycemia Stop: 11/09/16 11:38 Glucose (Gluctose) 15 gm PO ONCE PRN PRN Reason: Hypoglycemia Stop: 11/09/16 11:38 Glucose (Gluctose) 30 gm PO ONCE PRN PRN Reason: Hypoglycemia Stop: 11/09/16 11:38 Hydralazine HCl (Hydralazine) 10 mg IVP Q6HR PRN PRN Reason: Hypertension Stop: 11/08/16 11:53 Last Admin: 05/09/16 19:52 Dose: 10 mg Sodium Chloride (0.9 % Sodium Chloride) 1,000 mls @ 60 mls/hr IVC .[id number] [facility] Stop: 11/08/16 12:01 Last Admin: 05/10/16 21:28 Dose: Not Given Dextrose (Dextrose 5%) 1,000 mls @ 100 mls/hr IV CONT PRN PRN Reason: HYPOGLYCEMIA Stop: 11/09/16 11:38 Insulin Human Lispro (Humalog) 0 units SQ TIDAC [facility] PRN Reason: Protocol Stop: 11/09/16 16:31 Last Admin: 05/11/16 08:10 Dose: Not Given Insulin Human Lispro (Humalog) 0 units SQ HS [facility] PRN Reason: Protocol Stop: 11/09/16 21:01 Last Admin: 05/10/16 21:02 Dose: Not Given Isosorbide Mononitrate (Imdur) 60 mg PO QPM [facility] Stop: 11/08/16 18:01 Last Admin: 05/10/16 17:38 Dose: 60 mg Levothyroxine Sodium (Synthroid) 75 mcg PO QAM [facility] Stop: 11/09/16 09:01 Last Admin: 05/11/16 09:20 Dose: 75 mcg Metoprolol Tartrate (Lopressor) 50 mg PO Q12H [facility] Stop: 11/09/16 20:31 Last Admin: 05/11/16 09:19 Dose: 50 mg Morphine Sulfate (Morphine Sulfate) 2 mg IV Q3H PRN PRN Reason: Pain Stop: 11/08/16 11:54 Naloxone HCl (Narcan) 0.4 mg IVP Q2MIN PRN PRN Reason: Opioid Reversal Stop: 11/08/16 11:55 Nitroglycerin (Nitroglycerin) 0.4 mg SL Q5MIN PRN PRN Reason: Chest Pain Stop: 11/08/16 11:54 Last Admin: 05/09/16 22:17 Dose: 0.4 mg Omeprazole (Prilosec) 40 mg PO DAILY@0630 NNAMDI PRN Reason: Protocol Stop: 11/09/16 06:31 Last Admin: 05/11/16 05:17 Dose: 40 mg Ondansetron HCl (Zofran) 4 mg IVP Q8HR PRN PRN Reason: Nausea And Vomiting Stop: 11/08/16 11:55 Last Admin: 05/10/16 22:01 Dose: 4 mg Sodium Bicarbonate (Sodium Bicarbonate) 650 mg PO BID [facility] Stop: 11/08/16 21:01 Last Admin: 05/11/16 09:20 Dose: 650 mg - Imaging and Cardiology Echo: report reviewed (EF 50-55%, small-moderate circumferential pericardial effusion. No definite evidence of tamponade.) - EKG Interpretation EKG results cardiology: other (12 hour tele AVG HR 90--sinus with 1st degree block and frequent ectopy) Consult Discharge Plan - Plan Referrals: Gunner Harley DO [Primary Care Provider] -
[2016-05-11] MEDS ORDERED: 0.9 % Sodium Chloride 1,000 ML IVC SCH (15:02)
[2016-05-11] MEDS: Isosorbide MONOnitrate (24 HR) 60 MG TAB.ER.24H PO SCH (17:21)
[2016-05-11] MEDS: Aspirin 81 MG TAB.CHEW PO SCH (17:22)
[2016-05-11] MEDS: *HR* Heparin 5,000 UNIT/ML VIAL SQ SCH (17:22)
[2016-05-11] MEDS: amLODIPine 5 MG TABLET PO SCH (17:24)
[2016-05-12 04:14] LABS: Basophils % 0.2 %; Eosinophils % 0.4 %; Hematocrit 28.2 % (37.5-50.1); Hemoglobin 9.2 g/dL (12.9-16.9); Immature Granulocytes % 0.5 % (0-4); Lymphocytes # 0.9 K/mcL (0.6-4.6); Lymphocytes % 9.8 %; Mean Corpuscular HGB Conc 32.6 g/dL (31.6-35.5); Mean Corpuscular Hemoglobin 27.3 pg (28.0-33.3); Mean Corpuscular Volume 83.7 fL (83.0-100.0); Mean Platelet Volume 11.7 fL (9.4-12.4); Monocytes # 0.9 K/mcL (0.0-1.3); Monocytes % 9.4 %; Neutrophils # 7.5 K/mcL (1.6-8.9); Platelet Count 154 K/mcL (140-400); Red Blood Count 3.37 M/mcL (4.19-5.50); Red Cell Distribution Width 14.9 % (11.5-14.5); Segmented Neutrophils % 79.7 %
[2016-05-12 04:33] LABS: Calcium 8.3 mg/dL (8.6-10.8); Potassium 4.2 mEq/L (3.5-4.5)
[2016-05-12] MEDS: *HR* Heparin 5,000 UNIT/ML VIAL SQ SCH ×2 (06:03→17:30)
[2016-05-12] MEDS: 0.9 % Sodium Chloride 1,000 ML IVC SCH (06:07)
[2016-05-12] MEDS: Insulin LISPRO 300 UNITS/3 ML VIAL SQ SCH ×4 (08:03→22:42)
[2016-05-12] MEDS: Acetaminophen 325 MG TABLET PO PRN (08:04)
[2016-05-12] MEDS: amLODIPine 5 MG TABLET PO SCH (17:29)
[2016-05-12] MEDS: Aspirin 81 MG TAB.CHEW PO SCH (17:29)
[2016-05-12] MEDS: Isosorbide MONOnitrate (24 HR) 60 MG TAB.ER.24H PO SCH (17:30)
[2016-05-12] MEDS: 0.9 % Sodium Chloride 1,000 ML IV SCH (18:44)
--- NOTE | 2016-05-12 18:58 | Internal Med Progress Note ---
Date of Encounter: 05/12/16 Time of Encounter: 18:55 - Assessment and plan (1) ANASTACIO (acute kidney injury) Current Visit: Yes Status: Acute (2) Generalized weakness Current Visit: Yes Status: Acute (3) Acute worsening of stage 3 chronic kidney disease Current Visit: No Status: Acute (4) Diastolic CHF, chronic Current Visit: No Status: Chronic (5) Essential hypertension Current Visit: No Status: Chronic (6) Type 2 diabetes mellitus Current Visit: No Status: Chronic Assessment and plan: worsening renal function is concerning, likely related to poor water intake, continue gentle hydration, monitor for improvement. cardiology recommendations noted. continue allopurinol monitor BP, continue norvasc, bblocker and add oral hydralazine. Continue Synthroid. Continue sodium bicarbonate. Qualifiers: Diabetes mellitus complication status: with kidney complications Chronic kidney disease stage: stage 3 (moderate) Qualified Code(s): E11.22 - Type 2 diabetes mellitus with diabetic chronic kidney disease; N18.3 - Chronic kidney disease, stage 3 (moderate) - Subjective Interval history: Patient evaluated, seen lying in bed. no pain noted today. says feeling better. - Constitutional Vitals: Temp Pulse Resp BP Pulse Ox 97.7 F 49 15 150/58 92 L 05/12/16 15:31 05/12/16 15:31 05/12/16 15:31 05/12/16 15:31 05/12/16 15:31 General appearance: Present: A&O X 3, no acute distress (Dehydrated) - Head Head exam: Present: atraumatic, normocephalic - Eye Eye exam: Present: PERRL, conjuntiva pink, sclera anicteric Pupils: Present: PERRL - Neck Neck exam general surgery: Present: supple, trachea midline. Absent: lymphadenopathy - Respiratory Respiratory exam: Present: CTAB. Absent: accessory muscle use, rales, rhonchi, wheezes - Cardiovascular Cardiovascular exam: Present: RRR, +S1, +S2. Absent: diastolic murmur, gallop, rubs, systolic murmur - GI/Abdominal GI/Abdominal exam: Present: normal bowel sounds, soft, no peritoneal signs. Absent: distended, tenderness - Extremities Exam Extremities exam: Present: warm, radial pulses palpable and symetrical. Absent : calf tenderness, cyanotic, pedal edema - Neurological Exam Neurological exam: Present: CN II-XII intact, oriented X3, no focal deficits. Absent: pronater drift, facial droop, speech deficit - Skin Skin exam: Present: dry, intact Internal Medicine: Result - Labs CBC & Chem 7: 05/12/16 03:49 05/12/16 03:49 Labs: Short CBC 05/12/16 Range/Units 03:49 WBC 9.4 (4.3-11.1) K/mcL Hgb 9.2 L (12.9-16.9) g/dL Hct 28.2 L (37.5-50.1) % Plt Count 154 (140-400) K/mcL Neutrophils # 7.5 (1.6-8.9) K/mcL BMP 05/12/16 03:49 Sodium 134 L Potassium 4.2 Chloride 99 Carbon Dioxide 20 BUN 87 H Creatinine 3.24 H Glucose 157 H Calcium 8.3 L Consult Discharge Plan - Plan Referrals: Cayden Rhoades MD [Partnered Physician] - 05/31/16 3:00 pm (This appointment will be [place]. )
[2016-05-12] MEDS: hydrALAZINE 10 MG TABLET PO SCH (23:22)
[2016-05-12] MEDS: Ipratropium/Albuterol Neb 3 ML IH PRN (23:57)
[2016-05-13] MEDS: Acetaminophen 325 MG TABLET PO PRN ×2 (03:01→22:14)
[2016-05-13 04:51] LABS: Basophils % 0.1 %; Eosinophils # 0.1 K/mcL (0.0-0.6); Eosinophils % 0.9 %; Hematocrit 25.3 % (37.5-50.1); Hemoglobin 8.4 g/dL (12.9-16.9); Immature Granulocytes % 0.5 % (0-4); Lymphocytes # 0.9 K/mcL (0.6-4.6); Lymphocytes % 11.6 %; Mean Corpuscular HGB Conc 33.2 g/dL (31.6-35.5); Mean Corpuscular Hemoglobin 27.3 pg (28.0-33.3); Mean Corpuscular Volume 82.1 fL (83.0-100.0); Mean Platelet Volume 11.8 fL (9.4-12.4); Monocytes # 0.6 K/mcL (0.0-1.3); Monocytes % 7.7 %; Neutrophils # 6.4 K/mcL (1.6-8.9); Platelet Count 154 K/mcL (140-400); Red Blood Count 3.08 M/mcL (4.19-5.50); Segmented Neutrophils % 79.2 %
[2016-05-13 05:44] LABS: Calcium 7.8 mg/dL (8.6-10.8); Potassium 4.1 mEq/L (3.5-4.5)
[2016-05-13] MEDS: *HR* Heparin 5,000 UNIT/ML VIAL SQ SCH ×2 (06:05→16:19)
[2016-05-13] MEDS: Insulin LISPRO 300 UNITS/3 ML VIAL SQ SCH ×4 (07:51→20:21)
[2016-05-13] MEDS: 0.9 % Sodium Chloride 1,000 ML IV SCH ×2 (08:09→16:21)
[2016-05-13] MEDS: hydrALAZINE 10 MG TABLET PO SCH ×3 (08:10→23:52)
--- NOTE | 2016-05-13 10:51 | Nephrology Consult Note ---
Date of Encounter: 05/13/16 Time of Encounter: 10:49 Assessment and Plan (1) ANASTACIO (acute kidney injury) Current Visit: Yes Status: Acute The patient has a clinical picture of acute kidney injury superimposed on stage IV chronic kidney disease. Urine output appears to be on the low side. The patient may still have a persistent component of volume depletion. We also need to rule out any difficulty with emptying his bladder. I would recommend continuing the current maintenance IV fluids. I will order renal ultrasound and bladder scan. I would recommend not discharging the patient until his renal function is back to baseline levels. I did discuss this with the patient and his family. In addition the patient's hemoglobin has fallen. He is complaining of some black tarry stools. I will order stool guaiacs. (2) Chronic kidney disease, stage IV (severe) Current Visit: Yes Status: Acute (3) Benign hypertension with chronic kidney disease, stage IV Current Visit: Yes Status: Acute (4) Generalized weakness Current Visit: Yes Status: Acute History of Present Illness - History of Present Illness This is an 89-year-old male who is followed as an outpatient for stage IV chronic kidney disease. Patient was admitted several days ago with a 3 day history of nausea vomiting and weakness. He was treated with IV fluids. The time of admission his creatinine was 2.74 and B1 was 78. Baseline creatinine ranges from 2.1-2.6. Today's creatinine is up to 3.41 and B UN is 100. He has been started on some IV fluids. Urine output is been low if the medical record is accurate. Patient reports she does have difficulty emptying his bladder at times. His nausea and vomiting have resolved. His states he still not eating and drinking much. He had an echocardiogram which showed a relatively well-preserved left ventricular ejection fraction. Pericardial fluid was noted without any evidence of An odd. Blood pressure is been stable. He has had some chest pain but currently he is pain-free. Past Med Surg Social Fam HX - Past Medical History Medical history: coronary artery disease, diabetes, GERD, hypertension, kidney stones, myocardial infarction, other Psychiatric history: no psych history - Past Surgical History Surgical History: carotid endarterectomy, cholecystectomy, herniorrhaphy, other - Social History Smoking Status: Former smoker Smokeless Tobacco Status: No Alcohol use: none Drug use: none - Family History Mother Adopted: No Family Member Ethnicity: Non- Living Status: Hx Family Cardiac Disorders: Yes (hypertension) Hx Family Respiratory Disorders: No Hx Family Cancer: No Hx Family GI Disorders: No Hx Family Endocrine Disorder: No Hx Family Neuromuscular Disorders: No Hx Family Neurologic Disorders: Yes (stroke) Hx Family HEENT Disorders: No Hx Family Autoimmune Disorders: No Father Adopted: No Family Member Ethnicity: Non- Living Status: Hx Family Cardiac Disorders: No Hx Family Respiratory Disorders: No Hx Family Cancer: No Hx Family GI Disorders: No Hx Family Endocrine Disorder: No Hx Family Neuromuscular Disorders: No Hx Family Neurologic Disorders: No Hx Family HEENT Disorders: No Hx Family Autoimmune Disorders: No Medications and Allergies Amlodipine [Norvasc] 5 mg PO QPM 02/11/15 [History] Aspirin 81 mg PO QPM 02/11/15 [History] Calcitriol [Rocaltrol] 0.25 mcg PO QAM 02/11/15 [History] Doxazosin [Cardura] 2 mg PO HS 02/11/15 [History] Isosorbide MONOnitrate [Isosorbide Mononitrate] 60 mg PO QPM 02/11/15 [History] Levothyroxine [Synthroid] 75 mcg PO QAM 02/11/15 [History] Torsemide [Demadex] 20 mg PO QAM 02/11/15 [History] Albuterol Sulfate [Albuterol Inhaler] 1 puff IH Q6HR 5 Days 02/14/15 [Rx] Allopurinol [Zyloprim 100 MG] 100 mg PO DAILY 05/09/16 [History] Ferrous Sulfate [Iron] 325 mg PO BID 05/09/16 [History] Omeprazole [Omeprazole] 10 mg PO DAILY 05/09/16 [History] Sodium Bicarbonate 650 mg PO BID 05/09/16 [History] Allergies furosemide [From Lasix] Allergy (Verified 05/09/16 10:43) Rash Penicillins [PCN] Allergy (Verified 05/09/16 10:43) Rash Review of Systems Constitutional: as per HPI, weakness Eyes: bilateral: blurred vision (patient denies), diplopia (patient denies) Nose, mouth and throat: no dizziness, no headache(s) Cardiovascular: as per HPI, chest pain, dyspnea on exertion, edema, irregular heart rhythm Respiratory: dyspnea on exertion Gastrointestinal: nausea, vomiting Genitourinary Male: difficulty urinating Musculoskeletal: arthralgias, back pain, joint swelling Integumentary: no hirsutism, no striae Neurological: weakness Psychiatric: no depression, no difficulty concentrating Endocrine: as per HPI Allergic/Immunologic: as per HPI, lip swelling, other, tongue swelling, throat swelling, itchy eyes, seasonal rhinorrhea, uticaria, wheezing, GI upset with certain foods Exam - Vital Signs Vital signs: Initial Vital Signs Temp Pulse Resp BP Pulse Ox 99.4 F 94 16 142/71 97 05/09/16 08:39 05/09/16 08:39 05/09/16 08:39 05/09/16 08:39 05/09/16 08:39 Vital Signs - Last 8 Hours Temp Pulse Resp BP Pulse Ox 05/13/16 06:46 98.2 F 72 15 159/56 94 L 05/13/16 03:26 98.4 F 72 16 132/59 96 Intake and Output 05/12/16 05/13/16 05/13/16 23:59 07:59 15:59 Intake Total 540 / 540 1000 / 1000 240 / 240 Output Total 50 / 50 125 / 125 Balance 490 / 490 875 / 875 240 / 240 Intake: IV Fluids 1000 / 1000 0.9 % Sodium Chloride 1, 1000 / 1000 000 ML @ 125 mls/hr IV CONT NNAMDI Rx#:[id number] Oral 540 / 540 240 / 240 Output: Urine 50 / 50 125 / 125 Other: Meal Dinner Breakfast Percent of Meal Consumed 0% 100% Stool Size Small Moderate Stool Consistency formed soft formed Stool Color Brown Brown # Urine Diapers 1 # Bowel Movements 1 1 Weight 85.457 kg Blood Glucose* 145 136 Patient Weight 05/13/16 23:59 Weight 85.457 kg - General Appearance Exam: The patient is alert and oriented. He is in no acute distress. Neck is supple. Carotids show no bruits. Lungs sounds with occasional expiratory wheezing otherwise clear. There are no rales. Heart irregular rate and rhythm consistent with atrial fibrillation. Abdomen shows normal bowel sounds. No bruits masses again megaly or tenderness. Lower extremities show trace lower extremity swelling. Patient has arthritic changes in his hands and fingers as well as evidence of tophaceous gout. Results - Lab Results 05/13/16 04:14 05/13/16 04:14 Most recent lab results Calcium 7.8 mg/dL (8.6-10.8) L 05/13/16 04:14 Phosphorus 3.8 mg/dL (2.3-4.7) 05/10/16 01:20 Magnesium 1.8 mg/dL (1.6-2.6) 05/10/16 01:20 Consult Discharge Plan - Plan Referrals: Cayden Rhoades MD [Partnered Physician] - 05/31/16 3:00 pm (This appointment will be [place]. )
[2016-05-13 11:38] LABS: Albumin 2.2 g/dL (3.5-5.0); Albumin/Globulin Ratio 0.6 (1.1-2.2); Bilirubin,Total 0.5 mg/dL (0.2-1.2); Calcium 8.1 mg/dL (8.6-10.8); Globulin 3.7 g/dL (2.4-3.5); Potassium 4.3 mEq/L (3.5-4.5); Total Protein 5.9 g/dL (6.0-8.3)
[2016-05-13] MEDS: amLODIPine 5 MG TABLET PO SCH (16:18)
[2016-05-13] MEDS: Isosorbide MONOnitrate (24 HR) 60 MG TAB.ER.24H PO SCH (16:20)
[2016-05-13] MEDS: Aspirin 81 MG TAB.CHEW PO SCH (16:20)
--- NOTE | 2016-05-13 18:37 | Internal Med Progress Note ---
Date of Encounter: 05/13/16 Time of Encounter: 18:37 - Assessment and plan (1) Acute myopericarditis Current Visit: Yes Status: Acute (2) ANASTACIO (acute kidney injury) Current Visit: Yes Status: Acute (3) Generalized weakness Current Visit: Yes Status: Acute (4) Acute worsening of stage 3 chronic kidney disease Current Visit: No Status: Acute (5) Diastolic CHF, chronic Current Visit: No Status: Chronic (6) Essential hypertension Current Visit: No Status: Chronic (7) Type 2 diabetes mellitus Current Visit: No Status: Chronic Assessment and plan: worsening renal function, continue gentle hydration, consult nephrology for recommendations. Continue sodium bicarbonate. myopericarditis likely secondary to viral syndrome, continue conservative therapy. patient improving. gouty arthritis, continue allopurinol monitor BP, continue norvasc, bblocker and hydralazine. Continue Synthroid. Qualifiers: Diabetes mellitus complication status: with kidney complications Chronic kidney disease stage: stage 3 (moderate) Qualified Code(s): E11.22 - Type 2 diabetes mellitus with diabetic chronic kidney disease; N18.3 - Chronic kidney disease, stage 3 (moderate) - Subjective Interval history: Patient evaluated, seen lying in bed. no pain noted today. says feeling better. - Constitutional Vitals: Temp Pulse Resp BP Pulse Ox 97.6 F 79 16 144/66 95 05/13/16 15:13 05/13/16 15:13 05/13/16 15:13 05/13/16 15:13 05/13/16 15:13 General appearance: Present: A&O X 3, no acute distress (Dehydrated) - Head Head exam: Present: atraumatic, normocephalic - Eye Eye exam: Present: PERRL, conjuntiva pink, sclera anicteric Pupils: Present: PERRL - Neck Neck exam general surgery: Present: supple, trachea midline. Absent: lymphadenopathy - Respiratory Respiratory exam: Present: CTAB. Absent: accessory muscle use, rales, rhonchi, wheezes - Cardiovascular Cardiovascular exam: Present: RRR, +S1, +S2. Absent: diastolic murmur, gallop, rubs, systolic murmur - GI/Abdominal GI/Abdominal exam: Present: normal bowel sounds, soft, no peritoneal signs. Absent: distended, tenderness - Extremities Exam Extremities exam: Present: warm, radial pulses palpable and symetrical. Absent : calf tenderness, cyanotic, pedal edema - Neurological Exam Neurological exam: Present: CN II-XII intact, oriented X3, no focal deficits. Absent: pronater drift, facial droop, speech deficit - Skin Skin exam: Present: dry, intact Internal Medicine: Result - Labs CBC & Chem 7: 05/13/16 04:14 05/13/16 11:16 Labs: Short CBC 05/13/16 Range/Units 04:14 WBC 8.0 (4.3-11.1) K/mcL Hgb 8.4 L (12.9-16.9) g/dL Hct 25.3 L (37.5-50.1) % Plt Count 154 (140-400) K/mcL Neutrophils # 6.4 (1.6-8.9) K/mcL BMP 05/13/16 05/13/16 04:14 11:16 Sodium 132 L 132 L Potassium 4.1 4.3 Chloride 98 99 Carbon Dioxide 20 20 BUN 100 H 101 H Creatinine 3.41 H 3.58 H Glucose 133 H 198 H Calcium 7.8 L 8.1 L Liver Function 05/13/16 Range/Units 11:16 Total Bilirubin 0.5 (0.2-1.2) mg/dL AST 17 (5-34) Units/L ALT 10 (0-55) Units/L Alkaline Phosphatase 76 (38-126) Units/L Albumin 2.2 L (3.5-5.0) g/dL - VTE Documentation of Mechanical Device: Graduated compression elastic hosiery Consult Discharge Plan - Plan Referrals: Cayden Rhoades MD [Partnered Physician] - 05/31/16 3:00 pm (This appointment will be [place]. )
[2016-05-13] MEDS: Ipratropium/Albuterol Neb 3 ML IH PRN (22:36)
[2016-05-14 04:51] LABS: Basophils % 0.2 %; Eosinophils # 0.2 K/mcL (0.0-0.6); Eosinophils % 1.9 %; Hematocrit 25.6 % (37.5-50.1); Hemoglobin 8.5 g/dL (12.9-16.9); Immature Granulocytes % 1.1 % (0-4); Lymphocytes # 0.9 K/mcL (0.6-4.6); Lymphocytes % 10.4 %; Mean Corpuscular HGB Conc 33.2 g/dL (31.6-35.5); Mean Corpuscular Hemoglobin 27.2 pg (28.0-33.3); Mean Corpuscular Volume 82.1 fL (83.0-100.0); Mean Platelet Volume 11.8 fL (9.4-12.4); Monocytes # 0.6 K/mcL (0.0-1.3); Monocytes % 6.8 %; Neutrophils # 6.5 K/mcL (1.6-8.9); Platelet Count 182 K/mcL (140-400); Red Blood Count 3.12 M/mcL (4.19-5.50); Red Cell Distribution Width 14.9 % (11.5-14.5); Segmented Neutrophils % 79.6 %
[2016-05-14 05:08] LABS: Calcium 7.8 mg/dL (8.6-10.8); Potassium 4.1 mEq/L (3.5-4.5)
[2016-05-14] MEDS: *HR* Heparin 5,000 UNIT/ML VIAL SQ SCH ×2 (06:13→17:19)
[2016-05-14] MEDS: 0.9 % Sodium Chloride 1,000 ML IV SCH (06:13)
[2016-05-14] MEDS ORDERED: 0.9 % Sodium Chloride 1,000 ML IV SCH (08:48)
--- NOTE | 2016-05-14 08:48 | Nephrology Progress Note ---
Date of Encounter: 05/14/16 Time of Encounter: 08:47 - Assessment and Plan (1) ANASTACIO (acute kidney injury) Current Visit: Yes Status: Acute I would recommend continuing IV fluids for another 24 hours although reduced rate. I would like to see the patient's renal function started to improve before he is discharged to the assisted. (2) Chronic kidney disease, stage IV (severe) Current Visit: Yes Status: Acute (3) Benign hypertension with chronic kidney disease, stage IV Current Visit: Yes Status: Acute (4) Generalized weakness Current Visit: Yes Status: Acute Subjective Principal diagnosis: Viral illness, viral myocarditis Interval history: Patient reports no new complaints. He has his usual shortness of breath. He is sitting up in a chair and appears comfortable. Renal function is essentially the same as yesterday despite IV fluids throughout the day. Renal ultrasound was unremarkable. There is no hydronephrosis and no significant postvoid residual in the bladder. Objective - Vital Signs Vital signs: Vital Signs Temp Pulse Resp BP Pulse Ox 05/14/16 07:29 98.0 F 97 16 168/64 93 L 05/14/16 03:47 98.2 F 76 14 136/65 94 L 05/13/16 23:29 98.1 F 54 14 122/60 95 05/13/16 22:36 14 95 05/13/16 19:55 98.4 F 86 15 159/65 94 L 05/13/16 15:13 97.6 F 79 16 144/66 95 05/13/16 11:52 97.6 F 69 16 137/56 96 Intake and Output 05/13/16 05/14/16 05/14/16 23:59 07:59 15:59 Intake Total 1820 / 1820 1000 / 1000 Output Total 150 / 150 200 / 200 Balance 1670 / 1670 800 / 800 Intake: IV Fluids 1000 / 1000 1000 / 1000 0.9 % Sodium Chloride 1, 1000 / 1000 1000 / 1000 000 ML @ 125 mls/hr IV CONT NNAMDI Rx#:[id number] Oral 820 / 820 Output: Urine 150 / 150 200 / 200 Other: Weight 86 kg Blood Glucose* 117 136 Patient Weight 05/14/16 23:59 Weight 86 kg - General Appearance Exam: Patient is alert he is in no acute distress. Lungs breath sounds otherwise clear. Heart regular rate and rhythm. Abdomen is benign. There is minimal lower extremity swelling. - Lab 05/14/16 04:22 05/14/16 04:22 Most recent lab results Calcium 7.8 mg/dL (8.6-10.8) L 05/14/16 04:22 Phosphorus 3.8 mg/dL (2.3-4.7) 05/10/16 01:20 Magnesium 1.8 mg/dL (1.6-2.6) 05/10/16 01:20 - VTE Documentation of Mechanical Device: Graduated compression elastic hosiery Consult Discharge Plan - Plan Referrals: Cayden Rhoades MD [Partnered Physician] - 05/31/16 3:00 pm (This appointment will be [place]. )
[2016-05-14] MEDS: Insulin LISPRO 300 UNITS/3 ML VIAL SQ SCH ×4 (09:08→20:41)
[2016-05-14] MEDS: hydrALAZINE 10 MG TABLET PO SCH ×2 (09:11→17:19)
[2016-05-14] MEDS: *HR* Morphine 2 MG/ML SYRINGE IV PRN ×2 (14:15→20:45)
[2016-05-14] MEDS: amLODIPine 5 MG TABLET PO SCH (17:19)
[2016-05-14] MEDS: Isosorbide MONOnitrate (24 HR) 60 MG TAB.ER.24H PO SCH (17:19)
[2016-05-14] MEDS: Aspirin 81 MG TAB.CHEW PO SCH (17:21)
--- NOTE | 2016-05-14 18:22 | Internal Med Progress Note ---
Date of Encounter: 05/14/16 Time of Encounter: 07:30 - Assessment and plan (1) Hypoalbuminemia Current Visit: Yes Status: Acute (2) Acute worsening of stage 3 chronic kidney disease Current Visit: No Status: Acute (3) Anemia Current Visit: No Status: Acute Qualifiers: Anemia type: unspecified type Qualified Code(s): D64.9 - Anemia, unspecified (4) Diastolic CHF, chronic Current Visit: No Status: Chronic (5) Type 2 diabetes mellitus Current Visit: No Status: Chronic Assessment and plan: Plan with patient protein malnutrition, low albumin, possible third spacing, could be a contributing factor for intravascular depletion. Add nutritional supplement. Would add appetite stimulant. Dietary consult. Continue IV fluid. Recheck albumin and prealbumin next morning. 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 Patient denies any worsening of his shortness of breath. Patient complains of decrease appetite - Constitutional Vitals: Temp Pulse Resp BP Pulse Ox 97.6 F 85 14 151/64 95 05/14/16 16:07 05/14/16 16:07 05/14/16 16:07 05/14/16 16:07 05/14/16 16:07 General appearance: Present: no acute distress (Dehydrated) - Head Head exam: Present: atraumatic, normocephalic - Neck Neck exam general surgery: Present: supple, trachea midline. Absent: lymphadenopathy - Respiratory Respiratory exam: Present: decreased breath sounds, prolonged expiratory phase, rales. Absent: accessory muscle use, rhonchi, wheezes - Cardiovascular Cardiovascular exam: Present: RRR, +S1, +S2, systolic murmur. Absent: diastolic murmur, gallop, rubs - GI/Abdominal GI/Abdominal exam: Present: normal bowel sounds, soft, no peritoneal signs. Absent: distended, tenderness - Extremities Exam Extremities exam: Present: warm, radial pulses palpable and symetrical. Absent : calf tenderness, cyanotic Internal Medicine: Result - Labs CBC & Chem 7: 05/14/16 04:22 05/14/16 04:22 Labs: Short CBC 05/14/16 Range/Units 04:22 WBC 8.2 (4.3-11.1) K/mcL Hgb 8.5 L (12.9-16.9) g/dL Hct 25.6 L (37.5-50.1) % Plt Count 182 (140-400) K/mcL Neutrophils # 6.5 (1.6-8.9) K/mcL BMP 05/14/16 04:22 Sodium 132 L Potassium 4.1 Chloride 100 Carbon Dioxide 17 L BUN 105 H Creatinine 3.40 H Glucose 121 H Calcium 7.8 L - Impressions Impressions Retroperitoneum Ultrasound 05/13/16 19:00 IMPRESSION: No evidence of hydronephrosis. Ill-defined hypoechoic area along the left inferior renal pole, measuring 1.8 x 1.9 x 2.4 cm, favored to represent a hemorrhagic or proteinaceous cyst. Mildly enlarged prostate. D/ / 05/13/2016 22:32:51 Sher Latham MD / tom Interpreting Provider: Sher Latham MD - VTE Documentation of Mechanical Device: Graduated compression elastic hosiery Consult Discharge Plan - Plan Referrals: Cayden Rhoades MD [Partnered Physician] - 05/31/16 3:00 pm (This appointment will be [place]. )
[2016-05-14] MEDS: Mirtazapine 15 MG TABLET PO SCH (20:26)
[2016-05-15] MEDS: hydrALAZINE 10 MG TABLET PO SCH ×3 (01:03→17:14)
[2016-05-15] MEDS ORDERED: 0.9 % Sodium Chloride 1,000 ML IV SCH (02:15)
[2016-05-15 05:09] LABS: Albumin 2.1 g/dL (3.5-5.0); Albumin/Globulin Ratio 0.6 (1.1-2.2); Bilirubin,Total 0.4 mg/dL (0.2-1.2); Calcium 7.8 mg/dL (8.6-10.8); Globulin 3.7 g/dL (2.4-3.5); Potassium 4.1 mEq/L (3.5-4.5); Total Protein 5.8 g/dL (6.0-8.3); Uric Acid 8.7 mg/dL (3.5-7.2)
[2016-05-15] MEDS: *HR* Heparin 5,000 UNIT/ML VIAL SQ SCH ×2 (05:59→17:14)
[2016-05-15] MEDS: Ipratropium/Albuterol Neb 3 ML IH PRN (06:04)
[2016-05-15 06:47] LABS: ABG Base Excess -5.9 mEq/L (-2.0 to 3.0); ABG HCO3 20.7 mEQ/L (21-27); ABG Oxygen Saturation 95 % (95-98); ABG PCO2 45 mmHg (35-45); ABG PH 7.27 pH Units (7.32-7.45); ABG PO2 89 mmHg (85-104); ABG TCO2 22.1 mEq/L (20-26); Blood Gas FiO2 32 %
--- NOTE | 2016-05-15 06:59 | Event Note ---
Date of Encounter: 05/15/16 Time of Encounter: 06:30 On-call Hospitalist note: RN reported that the pt has labored breathing and confused. I have evaluated the pt - confused. wheezing present. Labs show creatinine is worsening - 3.7. Plan: D/C IV fluid for now. Stat CXR and ABG ordered. With worsening renal function, consider bladder scan / PVR. Day team to follow the results
[2016-05-15 08:14] LABS: Phosphorous 5.6 mg/dL (2.3-4.7)
--- NOTE | 2016-05-15 08:33 | Nephrology Progress Note ---
Date of Encounter: 05/15/16 Time of Encounter: 08:32 - Assessment and Plan (1) ANASTACIO (acute kidney injury) Current Visit: Yes Status: Acute I agree with discontinuing the IV fluids. Even though the renal ultrasound did not show significant postvoid residual of the bladder and then recommend that we place a Carrizales catheter to better monitor the patient's urine output and see if this helps improve his renal function. (2) Chronic kidney disease, stage IV (severe) Current Visit: Yes Status: Acute (3) Benign hypertension with chronic kidney disease, stage IV Current Visit: Yes Status: Acute (4) Generalized weakness Current Visit: Yes Status: Acute Subjective Principal diagnosis: Viral illness, viral myocarditis Interval history: Apparently the patient has become more short of breath. The IV fluids of been discontinued. He still expressing some difficulty emptying his bladder. Renal function is worsening. Recent renal ultrasound showed no significant postvoid residual bladder. Objective - Vital Signs Vital signs: Vital Signs Temp Pulse Resp BP Pulse Ox 05/15/16 06:52 97.8 F 81 28 151/61 94 L 05/15/16 06:06 22 96 05/15/16 03:21 97.8 F 81 16 130/56 94 L 05/14/16 23:06 98.0 F 63 16 133/64 95 05/14/16 20:05 96 05/14/16 19:15 98.0 F 83 16 136/54 96 05/14/16 16:07 97.6 F 85 14 151/64 95 05/14/16 10:50 98.2 F 62 15 130/60 94 L Intake and Output 05/14/16 05/15/16 05/15/16 23:59 07:59 15:59 Intake Total 120 / 120 1000 / 1000 Output Total 50 / 50 200 / 200 Balance 70 / 70 800 / 800 Intake: IV Fluids 1000 / 1000 0.9 % Sodium Chloride 1, 1000 / 1000 000 ML @ 75 mls/hr IV CONT NNAMDI Rx#:[id number] Oral 120 / 120 Output: Urine 50 / 50 200 / 200 Other: Meal Dinner Percent of Meal Consumed 25% Weight 94.3 kg Blood Glucose* 166 163 Patient Weight 05/15/16 23:59 Weight 94.3 kg - General Appearance Exam: Patient is alert and oriented. He is in no acute distress. Lungs diminished breath sounds. Heart regular rate and rhythm. Abdomen was benign. Some mild lower extremity swelling. - Lab 05/14/16 04:22 05/15/16 03:34 Most recent lab results ABG pH 7.27 pH Units (7.32-7.45) L 05/15/16 06:39 ABG pCO2 45 mmHg (35-45) 05/15/16 06:39 ABG pO2 89 mmHg (85-104) 05/15/16 06:39 ABG HCO3 20.7 mEQ/L (21-27) L 05/15/16 06:39 ABG O2 Saturation 95 % (95-98) 05/15/16 06:39 Calcium 7.8 mg/dL (8.6-10.8) L 05/15/16 03:34 Phosphorus 5.6 mg/dL (2.3-4.7) H 05/14/16 04:22 Magnesium 1.8 mg/dL (1.6-2.6) 05/10/16 01:20 - VTE Documentation of Mechanical Device: Graduated compression elastic hosiery Consult Discharge Plan - Plan Referrals: Cayden Rhoades MD [Partnered Physician] - 05/31/16 3:00 pm (This appointment will be [place]. )
--- NOTE | 2016-05-15 08:38 | Internal Med Progress Note ---
Date of Encounter: 05/15/16 Time of Encounter: 07:45 - Assessment and plan (1) Hypoalbuminemia Current Visit: Yes Status: Acute Assessment and plan: May consider adding albumin in addition to diuretics (2) Acute worsening of stage 3 chronic kidney disease Current Visit: No Status: Acute (3) Anemia Current Visit: No Status: Acute Assessment and plan: Transfuse 1 unit of blood in view of his respiratory failure Qualifiers: Anemia type: iron deficiency Iron deficiency anemia type: other iron deficiency Qualified Code(s): D50.8 - Other iron deficiency anemias (4) Diastolic CHF, chronic Current Visit: No Status: Chronic Assessment and plan: Secondary to anemia and volume overload , patient is allergic to Lasix was discussed with nephrology about adding Zaroxolyn. 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 Patient is tachypneic, he is in respiratory distress, dyspnea at rest. - Constitutional Vitals: Temp Pulse Resp BP Pulse Ox 97.8 F 81 28 151/61 94 L 05/15/16 06:52 05/15/16 06:52 05/15/16 06:52 05/15/16 06:52 05/15/16 06:52 General appearance: Present: mild distress - Head Head exam: Present: atraumatic, normocephalic - Neck Neck exam general surgery: Present: supple, trachea midline. Absent: lymphadenopathy - Respiratory Respiratory exam: Present: accessory muscle use, decreased breath sounds ( Activity diminished breathing sounds bilateral lung bases), respiratory distress. Absent: rales, rhonchi, wheezes - Cardiovascular Cardiovascular exam: Present: RRR, +S1, +S2. Absent: diastolic murmur, gallop, rubs, systolic murmur - GI/Abdominal GI/Abdominal exam: Present: normal bowel sounds, soft, no peritoneal signs. Absent: distended, tenderness - Extremities Exam Extremities exam: Present: warm, radial pulses palpable and symetrical. Absent : calf tenderness, cyanotic, pedal edema - Neurological Exam Neurological exam: Present: CN II-XII intact, no focal deficits - Skin Skin exam: Present: dry, intact Internal Medicine: Result - Labs CBC & Chem 7: 05/14/16 04:22 05/15/16 03:34 Labs: BMP 05/14/16 05/15/16 04:22 03:34 Sodium 132 L 133 L Potassium 4.1 4.1 Chloride 100 101 Carbon Dioxide 17 L 16 L BUN 105 H 115 H Creatinine 3.40 H 3.70 H Glucose 121 H 141 H Calcium 7.8 L 7.8 L Liver Function 05/15/16 Range/Units 03:34 Total Bilirubin 0.4 (0.2-1.2) mg/dL AST 12 (5-34) Units/L ALT 9 (0-55) Units/L Alkaline Phosphatase 77 (38-126) Units/L Albumin 2.1 L (3.5-5.0) g/dL - ABG Interpretation ABG results: ABG ABG pH 7.27 pH Units (7.32-7.45) L 05/15/16 06:39 ABG pCO2 45 mmHg (35-45) 05/15/16 06:39 ABG pO2 89 mmHg (85-104) 05/15/16 06:39 ABG O2 Saturation 95 % (95-98) 05/15/16 06:39 - Impressions Assessment and plan Acute pulmonary edema secondary to CHF exacerbation secondary to anemia and volume overload Anemia secondary to iron deficiency anemia and chronic kidney disease Acute on chronic kidney disease Hypoalbuminemia Signs of CHF exacerbation. patient with acute respiratory failure possibly secondary to volume overload and anemia. With his congestive heart failure with his respiratory failure with his low hemoglobin , will transfuse 1 unit of blood. His iron studies showed iron deficiency anemia once stable consider adding one dose of aranesp in addition to iron if okay with nephrology team. Add diuretics, currently patient is allergic to Lasix may consider Zaroxolyn will discuss with nephrology team. We will start BiPAP. Transfer patient to [address] for close monitoring of his condition. Plan discussed with patient and staff. May consider adding albumin in addition to diuretics Impressions Chest X-Ray 05/15/16 06:29 IMPRESSION: Pulmonary vascular congestion with associated small bilateral pleural effusions, likely representing new mild CHF. D/ / 05/15/2016 08:01:18 Josh Schwartz MD / [email or web address] Interpreting Provider: Josh Schwartz MD - Diagnostic Studies Chest x-ray Additional comments: Possible pulmonary edema - VTE Documentation of Mechanical Device: Graduated compression elastic hosiery Consult Discharge Plan - Plan Referrals: Cayden Rhoades MD [Partnered Physician] - 05/31/16 3:00 pm (This appointment will be [place]. )
[2016-05-15 08:40] LABS: Magnesium 1.9 mg/dL (1.6-2.6); Phosphorous 6.2 mg/dL (2.3-4.7)
[2016-05-15] MEDS ORDERED: Bumetanide 1 MG/4 ML VIAL IVP ONE (08:57)
[2016-05-15] MEDS ORDERED: 0.9 % Sodium Chloride 250 ML ONE (10:31)
[2016-05-15] MEDS: Insulin LISPRO 300 UNITS/3 ML VIAL SQ SCH ×3 (10:43→16:39)
[2016-05-15] MEDS: Acetaminophen 325 MG TABLET PO PRN ×2 (14:16→21:03)
[2016-05-15] MEDS: Isosorbide MONOnitrate (24 HR) 60 MG TAB.ER.24H PO SCH (17:14)
[2016-05-15] MEDS: amLODIPine 5 MG TABLET PO SCH (17:14)
[2016-05-15] MEDS: Aspirin 81 MG TAB.CHEW PO SCH (17:14)
[2016-05-15] MEDS: Mirtazapine 15 MG TABLET PO SCH (21:03)
[2016-05-16] MEDS: Insulin LISPRO 300 UNITS/3 ML VIAL SQ SCH ×5 (00:15→22:07)
[2016-05-16] MEDS: hydrALAZINE 10 MG TABLET PO SCH ×4 (00:17→23:55)
[2016-05-16 05:19] LABS: Albumin 2.1 g/dL (3.5-5.0); Albumin/Globulin Ratio 0.6 (1.1-2.2); Bilirubin,Total 0.6 mg/dL (0.2-1.2); Calcium 8.1 mg/dL (8.6-10.8); Globulin 3.8 g/dL (2.4-3.5); Potassium 4.4 mEq/L (3.5-4.5); Total Protein 5.9 g/dL (6.0-8.3)
[2016-05-16] MEDS: *HR* Morphine 2 MG/ML SYRINGE IV PRN (06:23)
[2016-05-16] MEDS: *HR* Heparin 5,000 UNIT/ML VIAL SQ SCH ×2 (06:23→17:28)
--- NOTE | 2016-05-16 10:00 | Nephrology Progress Note ---
Date of Encounter: 05/16/16 Time of Encounter: 09:58 - Assessment and Plan (1) ANASTACIO (acute kidney injury) Current Visit: Yes Status: Acute Patient continues to have worsening renal function although it appears as though his urine output may be starting to increase based on how much urine is in the Carrizales bag. If the patient's azotemia worsens again tomorrow and require initiation of dialysis. I did discuss this with him and he said he is agreeable to starting at least temporary dialysis. He is not sure if he would continue with dialysis should it become chronic. (2) Chronic kidney disease, stage IV (severe) Current Visit: Yes Status: Acute (3) Benign hypertension with chronic kidney disease, stage IV Current Visit: Yes Status: Acute (4) Generalized weakness Current Visit: Yes Status: Acute Subjective Principal diagnosis: Viral illness, viral myocarditis Interval history: The patient states he is feeling weak. He denies any worsening shortness of breath. He denies any chest pain. It looks like he has more urine in the collection bag of his Carrizales. Unfortunately his renal function continues to worsen. Objective - Vital Signs Vital signs: Vital Signs Temp Pulse Resp BP Pulse Ox 05/16/16 08:44 76 05/16/16 07:55 98.3 F 81 20 134/57 100 05/16/16 04:20 98.2 F 79 24 127/62 100 05/15/16 23:53 97.6 F 65 24 127/62 95 05/15/16 23:45 97.3 F L 71 33 101/57 95 05/15/16 23:35 67 05/15/16 20:30 67 05/15/16 20:18 98.5 F 72 26 132/68 93 L 05/15/16 16:19 97.3 F L 71 20 136/61 94 L 05/15/16 16:17 97.3 F L 71 18 136/61 95 05/15/16 13:30 98.1 F 67 20 129/82 97 05/15/16 13:28 70 20 129/82 97 05/15/16 12:47 97.7 F 68 138/63 05/15/16 12:32 97.1 F L 67 18 137/77 94 L 05/15/16 11:16 26 140/57 97 05/15/16 11:08 97.6 F 73 20 140/57 93 L Intake and Output 05/15/16 05/16/16 05/16/16 23:59 07:59 15:59 Intake Total 435 / 435 Output Total 125 / 125 Balance 310 / 310 Intake: Oral 120 / 120 Blood Product 315 / 315 Rbcs Leuko Poor As-1 315 / 315 Unit [id number] Output: Urine 125 / 125 Urethral (Carrizales) 125 / 125 Other: Meal Dinner Percent of Meal Consumed 20% Weight 94.2 kg Blood Glucose* 167 187 Patient Weight 05/16/16 23:59 Weight 94.2 kg - General Appearance Exam: Patient is alert and oriented. He is in no acute distress. He appears chronically ill. Lungs diminished breath sounds bilaterally. Heart regular rate and rhythm with ectopy noted. Abdomen is benign. There is minimal lower extremity swelling. - Lab 05/14/16 04:22 05/16/16 04:50 Most recent lab results ABG pH 7.27 pH Units (7.32-7.45) L 05/15/16 06:39 ABG pCO2 45 mmHg (35-45) 05/15/16 06:39 ABG pO2 89 mmHg (85-104) 05/15/16 06:39 ABG HCO3 20.7 mEQ/L (21-27) L 05/15/16 06:39 ABG O2 Saturation 95 % (95-98) 05/15/16 06:39 Calcium 8.1 mg/dL (8.6-10.8) L 05/16/16 04:50 Phosphorus 6.2 mg/dL (2.3-4.7) H 05/15/16 08:08 Magnesium 1.9 mg/dL (1.6-2.6) 05/15/16 08:08 - VTE Documentation of Mechanical Device: Graduated compression elastic hosiery Consult Discharge Plan - Plan Referrals: Cayden Rhoaeds MD [Partnered Physician] - 05/31/16 3:00 pm (This appointment will be [place]. )
--- NOTE | 2016-05-16 12:40 | Internal Med Progress Note ---
Date of Encounter: 05/16/16 Time of Encounter: 10:45 - Assessment and plan (1) Hypoalbuminemia Current Visit: Yes Status: Acute Assessment and plan: Discussed with nephrology team no need for albumin infusion. Was discussed with coordinating producer team for more protein supplement especially his prealbumin is low (2) Acute worsening of stage 3 chronic kidney disease Current Visit: No Status: Acute (3) Anemia Current Visit: No Status: Acute Assessment and plan: Had 1 unit of blood yesterday. Check H&H Qualifiers: Anemia type: iron deficiency Iron deficiency anemia type: other iron deficiency Qualified Code(s): D50.8 - Other iron deficiency anemias (4) Diastolic CHF, chronic Current Visit: No Status: Chronic Assessment and plan: Marked improvement with diuretics and blood transfusion (5) Type 2 diabetes mellitus Current Visit: No Status: Chronic Qualifiers: Diabetes mellitus complication status: with kidney complications Diabetes mellitus senior living insulin use: unspecified senior living insulin use status Chronic kidney disease stage: stage 3 (moderate) Qualified Code(s): E11.22 - Type 2 diabetes mellitus with diabetic chronic kidney disease; N18.3 - Chronic kidney disease, stage 3 (moderate) (6) Acute respiratory failure Current Visit: Yes Status: Acute Assessment and plan: Currently off BiPAP continue nasal cannula Qualifiers: Respiratory failure complication: hypoxia Qualified Code(s): J96.01 - Acute respiratory failure with hypoxia (7) Acute worsening of stage 4 chronic kidney disease Current Visit: Yes Status: Acute Assessment and plan: Discussed with nephrology team. Close monitoring of renal function for next 24 hours if no improvement will consider dialysis (8) Severe malnutrition Current Visit: Yes Status: Acute - Time Spent With Patient I had a long discussion with patient and family at bedside patient is agreeable for temporary dialysis only. I had long discussions about the importance of nutrition 25 - 35 minutes - Subjective Interval history: Patient is feeling better today. Marked improvement of his breathing. Good urine output, worsening of his renal function. Patient denies any chest pain. Low oral intake. Family stated that very little oral intake at home, he is sleepy most of the time - Constitutional Vitals: Temp Pulse Resp BP Pulse Ox 98.5 F 67 22 127/62 96 05/16/16 11:00 05/16/16 12:07 05/16/16 11:00 05/16/16 11:00 05/16/16 11:00 General appearance: Present: no acute distress - Head Head exam: Present: atraumatic, normocephalic - Neck Neck exam general surgery: Present: supple, trachea midline. Absent: lymphadenopathy - Respiratory Respiratory exam: Present: decreased breath sounds, CTAB, rhonchi (Bilateral lung bases much better compared to yesterday). Absent: accessory muscle use, rales, wheezes - Cardiovascular Cardiovascular exam: Present: RRR, +S1, +S2, systolic murmur. Absent: diastolic murmur, gallop, rubs - GI/Abdominal GI/Abdominal exam: Present: normal bowel sounds, soft. Absent: tenderness - Extremities Exam Extremities exam: Present: warm, radial pulses palpable and symetrical. Absent : calf tenderness, cyanotic, pedal edema Internal Medicine: Result - Labs CBC & Chem 7: 05/16/16 13:05 05/16/16 04:50 Labs: BMP 05/16/16 04:50 Sodium 132 L Potassium 4.4 Chloride 101 Carbon Dioxide 16 L BUN 122 H Creatinine 4.01 H Glucose 162 H Calcium 8.1 L Liver Function 05/16/16 Range/Units 04:50 Total Bilirubin 0.6 (0.2-1.2) mg/dL AST 12 (5-34) Units/L ALT 10 (0-55) Units/L Alkaline Phosphatase 79 (38-126) Units/L Albumin 2.1 L (3.5-5.0) g/dL - ABG Interpretation ABG results: ABG ABG pH 7.27 pH Units (7.32-7.45) L 05/15/16 06:39 ABG pCO2 45 mmHg (35-45) 05/15/16 06:39 ABG pO2 89 mmHg (85-104) 05/15/16 06:39 ABG O2 Saturation 95 % (95-98) 05/15/16 06:39 - Impressions Impressions Retroperitoneum Ultrasound 05/13/16 19:00 IMPRESSION: No evidence of hydronephrosis. Ill-defined hypoechoic area along the left inferior renal pole, measuring 1.8 x 1.9 x 2.4 cm, favored to represent a hemorrhagic or proteinaceous cyst. Mildly enlarged prostate. D/ / 05/13/2016 22:32:51 Sher Latham MD / tom Interpreting Provider: Sher Latham MD - VTE Documentation of Mechanical Device: Graduated compression elastic hosiery Consult Discharge Plan - Plan Referrals: Cayden Rhoades MD [Partnered Physician] - 05/31/16 3:00 pm (This appointment will be [place]. )
[2016-05-16] MEDS: Acetaminophen 325 MG TABLET PO PRN (13:16)
[2016-05-16 13:41] LABS: Hematocrit 29.2 % (37.5-50.1); Hemoglobin 9.7 g/dL (12.9-16.9)
[2016-05-16] MEDS: Aspirin 81 MG TAB.CHEW PO SCH (17:28)
[2016-05-16] MEDS: Isosorbide MONOnitrate (24 HR) 60 MG TAB.ER.24H PO SCH (17:28)
[2016-05-16] MEDS: Thiamine (B-1) 100 MG TABLET PO SCH (17:28)
[2016-05-16] MEDS: amLODIPine 5 MG TABLET PO SCH (17:28)
[2016-05-16] MEDS: Mirtazapine 15 MG TABLET PO SCH (22:04)
[2016-05-17] MEDS: Acetaminophen 325 MG TABLET PO PRN (04:21)
[2016-05-17] MEDS: *HR* Heparin 5,000 UNIT/ML VIAL SQ SCH ×2 (04:22→17:08)
[2016-05-17 05:49] LABS: Basophils % 0.1 %; Eosinophils # 0.1 K/mcL (0.0-0.6); Eosinophils % 1.6 %; Hematocrit 28.5 % (37.5-50.1); Hemoglobin 9.4 g/dL (12.9-16.9); Immature Granulocytes % 1.4 % (0-4); Lymphocytes # 0.6 K/mcL (0.6-4.6); Lymphocytes % 7.2 %; Mean Corpuscular Hemoglobin 27.2 pg (28.0-33.3); Mean Corpuscular Volume 82.4 fL (83.0-100.0); Mean Platelet Volume 11.6 fL (9.4-12.4); Monocytes # 0.4 K/mcL (0.0-1.3); Monocytes % 5.8 %; Neutrophils # 6.4 K/mcL (1.6-8.9); Platelet Count 229 K/mcL (140-400); Red Blood Count 3.46 M/mcL (4.19-5.50); Red Cell Distribution Width 15.5 % (11.5-14.5); Segmented Neutrophils % 83.9 %
[2016-05-17 06:21] LABS: Potassium 4.4 mEq/L (3.5-4.5)
[2016-05-17] MEDS: hydrALAZINE 10 MG TABLET PO SCH ×3 (07:49→23:55)
[2016-05-17] MEDS: Insulin LISPRO 300 UNITS/3 ML VIAL SQ SCH ×4 (07:49→22:01)
[2016-05-17] MEDS: Thiamine (B-1) 100 MG TABLET PO SCH (07:49)
--- NOTE | 2016-05-17 10:36 | Internal Med Progress Note ---
Date of Encounter: 05/17/16 Time of Encounter: 10:33 - Assessment and plan (1) Acute respiratory failure Current Visit: Yes Status: Acute Assessment and plan: Likely related to worsening renal failure and anemia. Continue supplemental oxygen along with BiPAP support at night as needed. Trial of Bumex today, per nephrology. Qualifiers: Respiratory failure complication: hypoxia Qualified Code(s): J96.01 - Acute respiratory failure with hypoxia (2) Acute worsening of stage 4 chronic kidney disease Current Visit: Yes Status: Acute Assessment and plan: Serum creatinine noted to be worsening. Nephrology follow-up appreciated. Trial of Bumex today and plan for hemodialysis in a.m. if no response or improvement in creatinine. Avoid new nephrotoxic agents and contrast. Monitor urine output and vitals closely. Patient has a guarded prognosis at this time. CODE STATUS discussed with patient and at bedside, confirm DNR/DNI status. Patient is also not interested in long-term hemodialysis if needed, per nephrology notes. (3) Anemia Current Visit: Yes Status: Chronic Assessment and plan: Likely related to worsening renal failure. Hemoglobin stable, at around 9.5, received 1 unit PRBC during this admission. Will require erythropoietin with hemodialysis. Qualifiers: Anemia type: unspecified type Qualified Code(s): D64.9 - Anemia, unspecified (4) Elevated troponin I level Current Visit: Yes Status: Resolved Assessment and plan: Likely related to demand ischemia from respiratory failure along with possible viral myopericarditis. Echocardiogram showed preserved EF and moderate pericardial effusion with no e/o- tamponade. Cardiology signed off, no further inpatient intervention recommended. (5) Diabetes Current Visit: Yes Status: Chronic Assessment and plan: Continue Accu-Chek blood glucose monitoring with sliding scale insulin as needed. Diabetic diet. 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 Noted to have some difficulty breathing but saturating well on nasal cannula. No nausea, vomiting, abdominal or chest pain. - Constitutional Vitals: Temp Pulse Resp BP Pulse Ox 98.7 F 62 16 123/77 98 05/17/16 07:36 05/17/16 08:15 05/17/16 07:36 05/17/16 07:36 05/17/16 07:36 General appearance: Present: mild distress, A&O X 3, answers questions appropriately - Head Head exam: Present: atraumatic, normocephalic - Neck Neck exam general surgery: Present: supple, trachea midline. Absent: lymphadenopathy - Respiratory Respiratory exam: Present: rales (Faint inspiratory crackles at bilateral bases) . Absent: accessory muscle use, rhonchi, wheezes - Cardiovascular Cardiovascular exam: Present: RRR, +S1, +S2. Absent: diastolic murmur, gallop, rubs, systolic murmur - GI/Abdominal GI/Abdominal exam: Present: normal bowel sounds, soft, no peritoneal signs. Absent: distended, tenderness - Extremities Exam Extremities exam: Present: pedal edema (3+ pitting pedal edema bilaterally, right more than left), warm, radial pulses palpable and symetrical. Absent: calf tenderness, cyanotic Additional comments: Peripheral edema - Neurological Exam Neurological exam: Present: CN II-XII intact, oriented X3, no focal deficits. Absent: pronater drift, facial droop, speech deficit - Skin Skin exam: Present: dry, intact Internal Medicine: Result - Labs CBC & Chem 7: 05/17/16 05:11 05/17/16 05:11 Labs: Short CBC 05/16/16 05/17/16 Range/Units 13:05 05:11 WBC 7.6 (4.3-11.1) K/mcL Hgb 9.7 L 9.4 L (12.9-16.9) g/dL Hct 29.2 L 28.5 L (37.5-50.1) % Plt Count 229 (140-400) K/mcL Neutrophils # 6.4 (1.6-8.9) K/mcL BMP 05/17/16 05:11 Sodium 131 L Potassium 4.4 Chloride 99 Carbon Dioxide 18 L BUN 123 H Creatinine 4.17 H Glucose 189 H Calcium 8.0 L - ABG Interpretation ABG results: ABG ABG pH 7.27 pH Units (7.32-7.45) L 05/15/16 06:39 ABG pCO2 45 mmHg (35-45) 05/15/16 06:39 ABG pO2 89 mmHg (85-104) 05/15/16 06:39 ABG O2 Saturation 95 % (95-98) 05/15/16 06:39 - VTE Documentation of Mechanical Device: Graduated compression elastic hosiery Consult Discharge Plan - Plan Referrals: Cayden Rhoades MD [Partnered Physician] - 05/31/16 3:00 pm (This appointment will be [place]. )
--- NOTE | 2016-05-17 12:34 | Nephrology Progress Note ---
Date of Encounter: 05/17/16 Time of Encounter: 12:05 - Assessment and Plan (1) ANASTACIO (acute kidney injury) Current Visit: Yes Status: Acute ANASTACIO/CKD. Renal fct slowly worsening. Oliguric. Will try Bumex IV today and see if improvement. If does not improve will do HD tomorrow. Subjective Principal diagnosis: Viral illness, viral myocarditis Interval history: Sitting up in bed, eating lunch. Difficulty speaking with patient secondary to loss of hearing aids. Family at bedside. Tachypneic, states may be somewhat more SOB than his usual. Objective - Vital Signs Vital signs: Vital Signs Temp Pulse Resp BP Pulse Ox 05/17/16 11:25 71 05/17/16 11:00 98.8 F 64 16 120/48 94 L 05/17/16 08:15 61 05/17/16 07:36 98.7 F 62 16 123/77 98 05/17/16 04:21 98.8 F 72 29 98/60 98 05/16/16 23:50 97.5 F L 66 28 129/57 94 L 05/16/16 23:10 55 95 05/16/16 19:46 97.4 F L 71 28 134/76 95 05/16/16 16:27 82 05/16/16 15:32 98.6 F 68 22 129/55 93 L Intake and Output 05/16/16 05/17/16 05/17/16 23:59 07:59 15:59 Intake Total 700 / 700 225 / 225 480 / 480 Output Total 225 / 225 175 / 175 Balance 475 / 475 50 / 50 480 / 480 Intake: Oral 700 / 700 225 / 225 480 / 480 Output: Catheter 225 / 225 175 / 175 Other: Meal Breakfast Percent of Meal Consumed 100% Weight 93.2 kg Blood Glucose* 282 182 227 Patient Weight 05/17/16 23:59 Weight 93.2 kg - General Appearance General appearance: Present: well-developed, well-nourished, appears started age EENT: Present: mucous membranes moist Neck: Present: no JVD Respiratory: Present: clear Additional Comments: very diminished Cardiology: Present: regular rate, regular rhythm Additional Comments: mild edema LE with 1+ dependent edema in thighs. Gastrointestinal: Present: normoactive bowel sounds, no tenderness Integumentary: Present: warm and dry Neurologic: Present: alert and oriented x3 Psychiatric: Present: mood/affect appropriate, cooperative - Lab 05/17/16 05:11 05/17/16 05:11 Most recent lab results ABG pH 7.27 pH Units (7.32-7.45) L 05/15/16 06:39 ABG pCO2 45 mmHg (35-45) 05/15/16 06:39 ABG pO2 89 mmHg (85-104) 05/15/16 06:39 ABG HCO3 20.7 mEQ/L (21-27) L 05/15/16 06:39 ABG O2 Saturation 95 % (95-98) 05/15/16 06:39 Calcium 8.0 mg/dL (8.6-10.8) L 05/17/16 05:11 Phosphorus 6.2 mg/dL (2.3-4.7) H 05/15/16 08:08 Magnesium 1.9 mg/dL (1.6-2.6) 05/15/16 08:08 - VTE Documentation of Mechanical Device: Graduated compression elastic hosiery Consult Discharge Plan - Plan Referrals: Cayden Rhoades MD [Partnered Physician] - 05/31/16 3:00 pm (This appointment will be [place]. )
[2016-05-17] MEDS ORDERED: Bumetanide 1 MG/4 ML VIAL IVP ONE (12:39)
[2016-05-17] MEDS: amLODIPine 5 MG TABLET PO SCH (17:08)
[2016-05-17] MEDS: Aspirin 81 MG TAB.CHEW PO SCH (17:08)
[2016-05-17] MEDS: Isosorbide MONOnitrate (24 HR) 60 MG TAB.ER.24H PO SCH (17:08)
[2016-05-17] MEDS: Mirtazapine 15 MG TABLET PO SCH (22:00)
[2016-05-18 05:45] LABS: Calcium 8.2 mg/dL (8.6-10.8); Potassium 4.8 mEq/L (3.5-4.5)
[2016-05-18] MEDS: *HR* Heparin 5,000 UNIT/ML VIAL SQ SCH ×2 (06:35→18:01)
[2016-05-18] MEDS: Thiamine (B-1) 100 MG TABLET PO SCH (08:10)
[2016-05-18] MEDS: Insulin LISPRO 300 UNITS/3 ML VIAL SQ SCH ×4 (08:11→20:26)
[2016-05-18] MEDS: hydrALAZINE 10 MG TABLET PO SCH ×3 (08:11→23:49)
[2016-05-18] MEDS ORDERED: 0.9 % Sodium Chloride 250 ML IV PRN (08:54)
--- NOTE | 2016-05-18 08:55 | Nephrology Progress Note ---
Date of Encounter: 05/18/16 Time of Encounter: 08:20 - Assessment and Plan (1) ANASTACIO (acute kidney injury) Current Visit: Yes Status: Acute ANASTACIO/CKD IV, viral syndrome and volume depletion. Renal fct slowly worsening. Urine [id number] cc following Bumex 2mg IV yesterday. Will initiate HD today. Consult IR for temporary catheter placement. HD orders given. Subjective Principal diagnosis: Viral illness, viral myocarditis Interval history: Sitting up in bed, eating breakfast. Difficulty speaking with patient secondary to loss of hearing aids. Tachypneic, states may be somewhat more SOB than his usual and admits chest heaviness with breathing today. Objective - Vital Signs Vital signs: Vital Signs Temp Pulse Resp BP Pulse Ox 05/18/16 08:37 78 05/18/16 04:53 30 97 05/18/16 03:14 97.7 F 67 28 126/58 98 05/17/16 23:53 97.8 F 62 25 138/74 98 05/17/16 19:43 97.4 F L 91 32 139/66 94 L 05/17/16 16:19 98.0 F 83 20 139/91 94 L 05/17/16 15:41 77 05/17/16 11:25 71 05/17/16 11:00 98.8 F 64 16 120/48 94 L Intake and Output 05/17/16 05/18/16 05/18/16 23:59 07:59 15:59 Intake Total 240 / 240 400 / 400 240 / 240 Output Total 330 / 330 25 / 25 Balance -90 / -90 375 / 375 240 / 240 Intake: Oral 240 / 240 400 / 400 240 / 240 Output: Urine 100 / 100 Catheter 230 / 230 25 / 25 Other: Meal Dinner Breakfast Percent of Meal Consumed 25% 90% Weight 92.9 kg Blood Glucose* 294 155 Patient Weight 05/18/16 23:59 Weight 92.9 kg - General Appearance General appearance: Present: well-developed, well-nourished, appears started age EENT: Present: mucous membranes moist Neck: Present: no JVD Additional Comments: fine bibasilar rales, diminished breath sounds throughout Cardiology: Present: regular rate, regular rhythm Additional Comments: edema worse today 1-2+buttock/thighs down Gastrointestinal: Present: normoactive bowel sounds, no tenderness Integumentary: Present: warm and dry Neurologic: Present: alert and oriented x3 Psychiatric: Present: mood/affect appropriate, cooperative - Lab 05/17/16 05:11 05/18/16 04:42 Most recent lab results ABG pH 7.27 pH Units (7.32-7.45) L 05/15/16 06:39 ABG pCO2 45 mmHg (35-45) 05/15/16 06:39 ABG pO2 89 mmHg (85-104) 05/15/16 06:39 ABG HCO3 20.7 mEQ/L (21-27) L 05/15/16 06:39 ABG O2 Saturation 95 % (95-98) 05/15/16 06:39 Calcium 8.2 mg/dL (8.6-10.8) L 05/18/16 04:42 Phosphorus 6.2 mg/dL (2.3-4.7) H 05/15/16 08:08 Magnesium 1.9 mg/dL (1.6-2.6) 05/15/16 08:08 - VTE Documentation of Mechanical Device: Graduated compression elastic hosiery Consult Discharge Plan - Plan Referrals: Cayden Rhoades MD [Partnered Physician] - 05/31/16 3:00 pm (This appointment will be [place]. )
[2016-05-18] MEDS ORDERED: 0.9 % Sodium Chloride 1,000 ML PRIME SCH (09:00)
[2016-05-18 10:29] LABS: Hepatitis B Surface Antibody 0.18 mIU/mL; Hepatitis B Surface Antigen Nonreactive (Nonreactive)
--- NOTE | 2016-05-18 10:44 | IR Procedure Note ---
Date of procedure: 05/18/16 Consent Obtained: Written consent Timeout: Correct patient and procedure verified, Correct site verified, Time out performed, Skin prep completed Local anesthetic: Lidocaine 1% Indications: Acute renal insufficiency Procedure Performed: Temp HD catheter placement Site/Technique: RIJV Results/Findings: Access into RIJV. 15cm catheter placed. Estimated blood loss (cc): 1 Complications: None; Tolerated procedure well Post Procedure Treatment Plan: Monitoring in room. CXR ordered.
--- NOTE | 2016-05-18 10:53 | Internal Med Progress Note ---
Date of Encounter: 05/18/16 Time of Encounter: 10:53 - Assessment and plan (1) Acute respiratory failure Current Visit: Yes Status: Acute Assessment and plan: Likely related to worsening renal failure and anemia. Continue supplemental oxygen along with BiPAP support at night as needed. Trial of Bumex unsuccessful as patient had no significant urine output. Plan to continue with hemodialysis today. Qualifiers: Respiratory failure complication: hypoxia Qualified Code(s): J96.01 - Acute respiratory failure with hypoxia (2) Acute worsening of stage 4 chronic kidney disease Current Visit: Yes Status: Acute Assessment and plan: Serum creatinine noted to be worsening. Nephrology follow-up appreciated. Trial of Bumex today unsuccessful. Patient received right internal jugular temporary hemodialysis catheter today, plan for hemodialysis today. Avoid new nephrotoxic agents and contrast. Monitor urine output and vitals closely. (3) Anemia Current Visit: Yes Status: Chronic Assessment and plan: Likely related to worsening renal failure. Hemoglobin stable, at around 9.5, received 1 unit PRBC during this admission. Will require erythropoietin with hemodialysis. Qualifiers: Anemia type: unspecified type Qualified Code(s): D64.9 - Anemia, unspecified (4) Elevated troponin I level Current Visit: Yes Status: Resolved Assessment and plan: Likely related to demand ischemia from respiratory failure along with possible viral myopericarditis. Echocardiogram showed preserved EF and moderate pericardial effusion with no e/o- tamponade. Cardiology signed off, no further inpatient intervention recommended. (5) Diabetes Current Visit: Yes Status: Chronic Assessment and plan: Continue Accu-Chek blood glucose monitoring . Patient is noted to have elevated blood sugars, which may be better controlled with initiation of hemodialysis. Will start low-dose of basal insulin at this time and continue with sliding scale insulin . Diabetic diet. Qualifiers: Diabetes mellitus type: type 2 Diabetes mellitus complication status: with kidney complications Diabetes mellitus complication detail: with chronic kidney disease Diabetes mellitus residential insulin use: without terminal computer operator use Chronic kidney disease stage: stage 4 (severe) Qualified Code(s): E11.22 - Type 2 diabetes mellitus with diabetic chronic kidney disease; N18.4 - Chronic kidney disease, stage 4 (severe) (6) Hypothyroid Current Visit: Yes Status: Chronic Qualifiers: Hypothyroidism type: acquired Qualified Code(s): E03.9 - Hypothyroidism, unspecified (7) Diastolic CHF, chronic Current Visit: Yes Status: Chronic (8) Essential hypertension Current Visit: Yes Status: Chronic - Subjective Interval history: Very hard of hearing. Reports that he is uncomfortable sitting up and would like to be in a reclining position. Received right neck temporary dialysis catheter today, awaiting hemodialysis. Noted to have significant worsening leg swelling today. No nausea, vomiting, abdominal pain. - Constitutional Vitals: Temp Pulse Resp BP Pulse Ox 98.7 F 78 18 142/87 96 05/18/16 08:57 05/18/16 08:57 05/18/16 08:57 05/18/16 08:57 05/18/16 08:57 General appearance: Present: mild distress, A&O X 3, answers questions appropriately - Respiratory Respiratory exam: Present: rales (Faint inspiratory crackles at bilateral bases) . Absent: accessory muscle use, rhonchi, wheezes - Cardiovascular Cardiovascular exam: Present: RRR, +S1, +S2. Absent: diastolic murmur, gallop, rubs, systolic murmur - Extremities Exam Extremities exam: Present: pedal edema (3+ pitting pedal edema up to bilateral thighs), warm, radial pulses palpable and symetrical. Absent: calf tenderness, cyanotic Internal Medicine: Result - Labs CBC & Chem 7: 05/17/16 05:11 05/18/16 04:42 Labs: BMP 05/18/16 04:42 Sodium 132 L Potassium 4.8 H Chloride 99 Carbon Dioxide 18 L BUN 132 H Creatinine 4.37 H Glucose 146 H Calcium 8.2 L - ABG Interpretation ABG results: ABG ABG pH 7.27 pH Units (7.32-7.45) L 05/15/16 06:39 ABG pCO2 45 mmHg (35-45) 05/15/16 06:39 ABG pO2 89 mmHg (85-104) 05/15/16 06:39 ABG O2 Saturation 95 % (95-98) 05/15/16 06:39 - Impressions Impressions Chest X-Ray 05/18/16 09:55 IMPRESSION: 1. Right internal jugular vein large bore catheter tip is located in the region of the SVC/right atrium. No pneumothorax. 2. Pulmonary edema with bilateral pleural effusions and bibasilar atelectasis. D/ /18/2016 10:30:49 Bentley Key MD / Keri Villalobos Interpreting Provider: Bentley Key MD - VTE Documentation of Mechanical Device: Graduated compression elastic hosiery Consult Discharge Plan - Plan Referrals: Cayden Rhoades MD [Partnered Physician] - 05/31/16 3:00 pm (This appointment will be [place]. )
[2016-05-18] MEDS: Acetaminophen 325 MG TABLET PO PRN ×2 (10:54→17:00)
[2016-05-18] MEDS: *HR* Morphine 2 MG/ML SYRINGE IV PRN (11:44)
[2016-05-18] MEDS: Insulin DETEMIR 100 UNIT/ML X5UNITS SQ SCH ×2 (11:44→20:29)
[2016-05-18 12:14] LABS: Hemoglobin A1C 7.5 %
[2016-05-18] MEDS ORDERED: 0.9 % Sodium Chloride 2,000 ML ONE (14:14)
[2016-05-18] MEDS: Isosorbide MONOnitrate (24 HR) 60 MG TAB.ER.24H PO SCH (16:50)
[2016-05-18] MEDS: amLODIPine 5 MG TABLET PO SCH (16:50)
[2016-05-18] MEDS: Aspirin 81 MG TAB.CHEW PO SCH (16:50)
[2016-05-18] MEDS: Mirtazapine 15 MG TABLET PO SCH (20:29)
[2016-05-19] MEDS: *HR* Morphine 2 MG/ML SYRINGE IV PRN (04:13)
[2016-05-19 04:44] LABS: Basophils % 0.2 %; Eosinophils # 0.1 K/mcL (0.0-0.6); Eosinophils % 1.2 %; Hematocrit 27.7 % (37.5-50.1); Hemoglobin 9.1 g/dL (12.9-16.9); Immature Granulocytes % 0.9 % (0-4); Lymphocytes # 0.8 K/mcL (0.6-4.6); Mean Corpuscular HGB Conc 32.9 g/dL (31.6-35.5); Mean Corpuscular Hemoglobin 27.2 pg (28.0-33.3); Mean Corpuscular Volume 82.7 fL (83.0-100.0); Mean Platelet Volume 10.8 fL (9.4-12.4); Monocytes # 0.8 K/mcL (0.0-1.3); Monocytes % 7.9 %; Neutrophils # 8.2 K/mcL (1.6-8.9); Platelet Count 252 K/mcL (140-400); Red Blood Count 3.35 M/mcL (4.19-5.50); Red Cell Distribution Width 15.8 % (11.5-14.5); Segmented Neutrophils % 81.8 %
[2016-05-19 04:52] LABS: Calcium 8.2 mg/dL (8.6-10.8); Magnesium 2.1 mg/dL (1.6-2.6); Potassium 4.5 mEq/L (3.5-4.5)
[2016-05-19] MEDS: *HR* Heparin 5,000 UNIT/ML VIAL SQ SCH ×2 (06:17→18:26)
[2016-05-19] MEDS: Insulin LISPRO 300 UNITS/3 ML VIAL SQ SCH ×4 (07:48→20:27)
[2016-05-19] MEDS: hydrALAZINE 10 MG TABLET PO SCH (09:23)
[2016-05-19] MEDS ORDERED: Isosorbide MONOnitrate (24 HR) 60 MG TAB.ER.24H PO SCH (09:23)
[2016-05-19] MEDS: Acetaminophen 325 MG TABLET PO PRN (09:27)
[2016-05-19] MEDS: Thiamine (B-1) 100 MG TABLET PO SCH (09:28)
--- NOTE | 2016-05-19 09:29 | Internal Med Progress Note ---
Date of Encounter: 05/19/16 Time of Encounter: 09:15 - Assessment and plan (1) Acute respiratory failure Current Visit: Yes Status: Acute Assessment and plan: Likely related to worsening renal failure and anemia. Improving oxygen requirements with hemodialysis, Continue supplemental oxygen; Qualifiers: Respiratory failure complication: hypoxia Qualified Code(s): J96.01 - Acute respiratory failure with hypoxia (2) Acute worsening of stage 4 chronic kidney disease Current Visit: Yes Status: Acute Assessment and plan: Nephrology on board. Patient received right internal jugular temporary hemodialysis catheter today, underwent first hemodialysis session yesterday. Possible session today. Avoid new nephrotoxic agents and contrast. Continue sodium bicarbonate per nephrology, patient may need phosphate binders. (3) Anemia Current Visit: Yes Status: Chronic Assessment and plan: Likely related to worsening renal failure. Hemoglobin stable, at around 9, received 1 unit PRBC during this admission. Will require erythropoietin with hemodialysis. Qualifiers: Anemia type: unspecified type Qualified Code(s): D64.9 - Anemia, unspecified (4) Elevated troponin I level Current Visit: Yes Status: Resolved (5) Diabetes Current Visit: Yes Status: Chronic Assessment and plan: Continue Accu-Chek blood glucose monitoring . Patient is noted to have low blood sugar recordings since last night, likely related to better control with initiation of hemodialysis. Hold basal insulin and continue low-dose sliding scale insulin. Diabetic diet. Qualifiers: Diabetes mellitus type: type 2 Diabetes mellitus complication status: with kidney complications Diabetes mellitus complication detail: with chronic kidney disease Diabetes mellitus exterminator helper termite insulin use: without exterminator helper termite use Chronic kidney disease stage: stage 4 (severe) Qualified Code(s): E11.22 - Type 2 diabetes mellitus with diabetic chronic kidney disease; N18.4 - Chronic kidney disease, stage 4 (severe) (6) Hypothyroid Current Visit: Yes Status: Chronic Qualifiers: Hypothyroidism type: acquired Qualified Code(s): E03.9 - Hypothyroidism, unspecified (7) Diastolic CHF, chronic Current Visit: Yes Status: Chronic Assessment and plan: Stable. Decrease the dose of nitrate due to better blood pressure control with hemodialysis. Continue beta jones, statin, aspirin. (8) Essential hypertension Current Visit: Yes Status: Chronic Assessment and plan: The patient noted to be very controlled with hemodialysis. Hold hydralazine, decrease the dose of Imdur and continue the remaining antihypertensives for now. (9) Chronic gouty arthritis Current Visit: Yes Status: Chronic Assessment and plan: Report some joint pains today. Continue when necessary Tylenol and oxycodone for pain control. Hold IV morphine due to initiation of dialysis and risk of excessive sedation and respiratory depression. - Subjective Interval history: Appears much better today, sitting up in chair. No chest pain, subjective dyspnea but noted to have heavy breathing when speaking, which is probably his baseline. Oxygen requirements improving. Reports joint pains in his legs due to chronic gout and recent fall, requests for pain medication. - Constitutional Vitals: Temp Pulse Resp BP Pulse Ox 97.8 F 77 20 128/48 96 05/19/16 07:17 05/19/16 07:48 05/19/16 07:17 05/19/16 07:17 05/19/16 07:48 General appearance: Present: A&O X 2, answers questions appropriately - Respiratory Respiratory exam: Present: CTAB. Absent: accessory muscle use, rales, rhonchi, wheezes - Cardiovascular Cardiovascular exam: Present: RRR, +S1, +S2. Absent: diastolic murmur, gallop, rubs, systolic murmur - GI/Abdominal GI/Abdominal exam: Present: normal bowel sounds, soft, no peritoneal signs. Absent: distended, tenderness - Extremities Exam Extremities exam: Present: full ROM (Swelling and deformities of multiple joints - right MCP, PIP, bilateral first MTP, due to gouty arthritis), pedal edema ( Slightly improved pedal edema), warm, radial pulses palpable and symetrical. Absent: calf tenderness, cyanotic Internal Medicine: Result - Labs CBC & Chem 7: 05/19/16 04:30 05/19/16 04:30 Labs: Short CBC 05/19/16 Range/Units 04:30 WBC 10.0 (4.3-11.1) K/mcL Hgb 9.1 L (12.9-16.9) g/dL Hct 27.7 L (37.5-50.1) % Plt Count 252 (140-400) K/mcL Neutrophils # 8.2 (1.6-8.9) K/mcL BMP 05/19/16 04:30 Sodium 135 L Potassium 4.5 Chloride 101 Carbon Dioxide 23 BUN 108 H Creatinine 3.55 H Glucose 88 Calcium 8.2 L - ABG Interpretation ABG results: ABG ABG pH 7.27 pH Units (7.32-7.45) L 05/15/16 06:39 ABG pCO2 45 mmHg (35-45) 05/15/16 06:39 ABG pO2 89 mmHg (85-104) 05/15/16 06:39 ABG O2 Saturation 95 % (95-98) 05/15/16 06:39 - Impressions Impressions Guidance Needle Placement Ultrasound 05/18/16 00:00 IMPRESSION: Successful ultrasound guided temporary hemodialysis catheter placement. D/ / Chava Salvador MD / Chava Salvador MD Interpreting Provider: Chava Salvador MD Insertion Non-Tunneled Catheter 05/18/16 08:49 IMPRESSION: Successful ultrasound guided temporary hemodialysis catheter placement. D/ / Chava Salvador MD / Chava Salvador MD Interpreting Provider: Chava Salvador MD Chest X-Ray 05/18/16 09:55 IMPRESSION: 1. Right internal jugular vein large bore catheter tip is located in the region of the SVC/right atrium. No pneumothorax. 2. Pulmonary edema with bilateral pleural effusions and bibasilar atelectasis. D/ / 05/18/2016 10:30:49 Bentley Key MD / Keri Villalobos Interpreting Provider: Bentley Key MD - VTE Documentation of Mechanical Device: Graduated compression elastic hosiery Consult Discharge Plan - Plan Referrals: Cayden Rhoades MD [Partnered Physician] - 05/31/16 3:00 pm (This appointment will be [place]. )
--- NOTE | 2016-05-19 12:31 | Nephrology Progress Note ---
Date of Encounter: 05/19/16 Time of Encounter: 12:00 - Assessment and Plan (1) ANASTACIO (acute kidney injury) Current Visit: Yes Status: Acute ANASTACIO/CKD IV, viral syndrome and volume depletion. Oliguric. Will do HD again today. HD orders given. Will hold ASA in case will need chronic HD and Mr. Hilario changes mind and agrees with placement of tunneled catheter. Subjective Principal diagnosis: Viral illness, viral myocarditis Interval history: Sitting on edge of bed. Difficulty speaking with patient secondary to loss of hearing aids. States easier to breathe today Objective - Vital Signs Vital signs: Vital Signs Temp Pulse Resp BP Pulse Ox 05/19/16 11:54 97.5 F L 63 20 140/68 96 05/19/16 07:48 77 96 05/19/16 07:17 97.8 F 71 20 128/48 95 05/19/16 04:05 97.6 F 79 20 119/53 96 05/18/16 23:19 97.6 F 56 16 125/52 99 05/18/16 20:46 51 05/18/16 19:56 97.8 F 63 18 128/55 98 05/18/16 15:34 98 F 66 16 126/55 96 05/18/16 15:00 66 05/18/16 13:50 97.4 F L 20 124/69 05/18/16 13:35 112/46 05/18/16 13:20 112/65 05/18/16 13:05 127/45 05/18/16 12:50 121/55 05/18/16 12:35 126/50 Intake and Output 05/18/16 05/19/16 05/19/16 23:59 07:59 15:59 Intake Total 600 / 600 Output Total 175 / 175 Balance -175 / -175 600 / 600 Intake: Oral 600 / 600 Output: Urine 75 / 75 Urethral ([place]) 75 / 75 Catheter 100 / 100 Other: Meal Breakfast Percent of Meal Consumed 90% Weight 93.7 kg Blood Glucose* 83 81 168 Patient Weight 05/19/16 23:59 Weight 93.7 kg - General Appearance General appearance: Present: well-developed, well-nourished, appears started age EENT: Present: mucous membranes moist Neck: Present: no JVD Respiratory: Present: clear Cardiology: Present: regular rate, regular rhythm Additional Comments: 1-2+ pitting edema with extensive scrotal and penile swelling Gastrointestinal: Present: normoactive bowel sounds, no tenderness Integumentary: Present: warm and dry Neurologic: Present: alert and oriented x3 Psychiatric: Present: mood/affect appropriate, cooperative - Lab 05/19/16 04:30 05/19/16 04:30 Most recent lab results ABG pH 7.27 pH Units (7.32-7.45) L 05/15/16 06:39 ABG pCO2 45 mmHg (35-45) 05/15/16 06:39 ABG pO2 89 mmHg (85-104) 05/15/16 06:39 ABG HCO3 20.7 mEQ/L (21-27) L 05/15/16 06:39 ABG O2 Saturation 95 % (95-98) 05/15/16 06:39 Calcium 8.2 mg/dL (8.6-10.8) L 05/19/16 04:30 Phosphorus 6.0 mg/dL (2.3-4.7) H 05/19/16 04:30 Magnesium 2.1 mg/dL (1.6-2.6) 05/19/16 04:30 - VTE Documentation of Mechanical Device: Graduated compression elastic hosiery Consult Discharge Plan - Plan Referrals: Cayden Rhoades MD [Partnered Physician] - 05/31/16 3:00 pm (This appointment will be [place]. )
[2016-05-19] MEDS ORDERED: 0.9 % Sodium Chloride 250 ML IV PRN (13:20)
[2016-05-19] MEDS: Sennosides/Docusate Sodium TABLET PO SCH ×2 (17:25→20:23)
[2016-05-19] MEDS: Isosorbide MONOnitrate (24 HR) 30 MG TAB.ER.24H PO SCH (17:26)
[2016-05-19] MEDS: amLODIPine 5 MG TABLET PO SCH (17:26)
[2016-05-19] MEDS: Insulin DETEMIR 100 UNIT/ML X5UNITS SQ SCH (18:25)
[2016-05-19] MEDS: Mirtazapine 15 MG TABLET PO SCH (20:19)
[2016-05-19] MEDS: *HR* OxyCODONE Immed Rel 5 MG TABLET PO PRN (20:19)
[2016-05-20] MEDS: *HR* Heparin 5,000 UNIT/ML VIAL SQ SCH ×2 (06:30→17:19)
[2016-05-20] MEDS: *HR* OxyCODONE Immed Rel 5 MG TABLET PO PRN (06:30)
[2016-05-20] MEDS ORDERED: 0.9 % Sodium Chloride 2,000 ML ONE (07:28)
[2016-05-20] MEDS: Insulin LISPRO 300 UNITS/3 ML VIAL SQ SCH ×4 (08:26→23:05)
[2016-05-20] MEDS: Thiamine (B-1) 100 MG TABLET PO SCH (08:28)
[2016-05-20] MEDS: Sennosides/Docusate Sodium TABLET PO SCH ×2 (08:28→20:30)
--- NOTE | 2016-05-20 09:17 | Nephrology Progress Note ---
Date of Encounter: 05/20/16 Time of Encounter: 09:00 - Assessment and Plan (1) ANASTACIO (acute kidney injury) Current Visit: Yes Status: Acute ANASTACIO/CKD IV, viral syndrome and volume depletion. Oliguric. Will do HD again today. HD orders given. Would hold Roxicodone secondary to hypersomnolence. Will hold ASA in case will need chronic HD and Mr. Hilario changes mind and agrees with placement of tunneled catheter. Subjective Principal diagnosis: Viral illness, viral myocarditis Interval history: Hypersomnolent, arouses with mild sternal rub but ynable to stay awake. Nursing states received roxicodone x 2 since last PM. Objective - Vital Signs Vital signs: Vital Signs Temp Pulse Resp BP Pulse Ox 05/20/16 08:06 98.9 F 72 134/60 96 05/20/16 04:00 81 05/20/16 03:55 98.3 F 84 28 147/68 96 05/20/16 00:36 97.7 F 78 28 135/56 98 05/19/16 23:35 64 05/19/16 20:07 98.6 F 78 26 134/54 98 05/19/16 19:50 82 05/19/16 17:03 97.9 F 82 132/102 95 05/19/16 15:50 20 158/88 05/19/16 15:35 162/70 05/19/16 15:20 159/73 05/19/16 15:05 161/62 05/19/16 14:50 156/74 05/19/16 14:35 150/55 05/19/16 14:20 144/65 05/19/16 14:05 147/64 05/19/16 13:50 97.6 F 20 146/53 05/19/16 13:15 75 97 05/19/16 11:54 97.5 F L 63 20 140/68 96 Intake and Output 05/19/16 05/20/16 05/20/16 23:59 07:59 15:59 Intake Total 540 / 540 0 / 0 Output Total 200 / 200 Balance 540 / 540 -200 / -200 Intake: Oral 540 / 540 0 / 0 Output: Catheter 200 / 200 Other: Meal Dinner Percent of Meal Consumed 20% Stool Size Small Stool Consistency liquid Stool Color Brown # Bowel Movements 0 Weight 91.8 kg Blood Glucose* 239 167 Patient Weight 05/20/16 23:59 Weight 91.8 kg - General Appearance General appearance: Present: well-developed, well-nourished, appears started age EENT: Present: mucous membranes moist Neck: Present: no JVD Respiratory: Present: clear Additional Comments: tachypneic Cardiology: Present: regular rate, regular rhythm Additional Comments: Slight improvement in edema in LE, buttock/thigh 2+. Scrotal/penile edema slight improvement. Gastrointestinal: Present: normoactive bowel sounds, no tenderness Integumentary: Present: warm and dry Additional Comments: hypersomnolent - Lab 05/19/16 04:30 05/19/16 04:30 Most recent lab results ABG pH 7.27 pH Units (7.32-7.45) L 05/15/16 06:39 ABG pCO2 45 mmHg (35-45) 05/15/16 06:39 ABG pO2 89 mmHg (85-104) 05/15/16 06:39 ABG HCO3 20.7 mEQ/L (21-27) L 05/15/16 06:39 ABG O2 Saturation 95 % (95-98) 05/15/16 06:39 Calcium 8.2 mg/dL (8.6-10.8) L 05/19/16 04:30 Phosphorus 6.0 mg/dL (2.3-4.7) H 05/19/16 04:30 Magnesium 2.1 mg/dL (1.6-2.6) 05/19/16 04:30 - VTE Documentation of Mechanical Device: Graduated compression elastic hosiery Consult Discharge Plan - Plan Referrals: Cayden Rhoades MD [Partnered Physician] - 05/31/16 3:00 pm (This appointment will be [place]. )
[2016-05-20 09:33] LABS: Hematocrit 29.3 % (37.5-50.1); Hemoglobin 9.4 g/dL (12.9-16.9); Mean Corpuscular HGB Conc 32.1 g/dL (31.6-35.5); Mean Corpuscular Hemoglobin 27.3 pg (28.0-33.3); Mean Corpuscular Volume 85.2 fL (83.0-100.0); Mean Platelet Volume 10.9 fL (9.4-12.4); Platelet Count 268 K/mcL (140-400); Red Blood Count 3.44 M/mcL (4.19-5.50); Red Cell Distribution Width 16.2 % (11.5-14.5)
[2016-05-20 09:48] LABS: Calcium 8.3 mg/dL (8.6-10.8); Potassium 4.8 mEq/L (3.5-4.5)
[2016-05-20] MEDS ORDERED: 0.9 % Sodium Chloride 250 ML IV PRN (10:01)
--- NOTE | 2016-05-20 10:35 | Internal Med Progress Note ---
Date of Encounter: 05/20/16 Time of Encounter: 10:32 - Assessment and plan (1) Acute encephalopathy Current Visit: Yes Status: Acute Assessment and plan: Likely related to the use of narcotics, in the setting of hemodialysis. We will hold oxycodone at this time and continue to monitor mental and respiratory status. Vital signs stable at this time. Follow up after dialysis. Supportive care. (2) Acute respiratory failure Current Visit: Yes Status: Acute Assessment and plan: Likely related to worsening renal failure and anemia. Improving oxygen requirements with hemodialysis, Continue supplemental oxygen; Qualifiers: Respiratory failure complication: hypoxia Qualified Code(s): J96.01 - Acute respiratory failure with hypoxia (3) Acute worsening of stage 4 chronic kidney disease Current Visit: Yes Status: Acute Assessment and plan: Nephrology on board. Patient received right internal jugular temporary hemodialysis catheter, underwent two hemodialysis sessions, third one planned for today. Avoid new nephrotoxic agents and contrast. Continue sodium bicarbonate per nephrology, patient may need phosphate binders. (4) Anemia Current Visit: Yes Status: Chronic Qualifiers: Anemia type: unspecified type Qualified Code(s): D64.9 - Anemia, unspecified (5) Elevated troponin I level Current Visit: Yes Status: Resolved (6) Diabetes Current Visit: Yes Status: Chronic Assessment and plan: Continue Accu-Chek blood glucose monitoring . Blood sugars noted to have improved, no more episodes of hypoglycemia since yesterday afternoon. continue low-dose sliding scale insulin. Diabetic diet. Qualifiers: Diabetes mellitus type: type 2 Diabetes mellitus complication status: with kidney complications Diabetes mellitus complication detail: with chronic kidney disease Diabetes mellitus intermediate school teacher insulin use: without fci use Chronic kidney disease stage: stage 4 (severe) Qualified Code(s): E11.22 - Type 2 diabetes mellitus with diabetic chronic kidney disease; N18.4 - Chronic kidney disease, stage 4 (severe) (7) Hypothyroid Current Visit: Yes Status: Chronic Qualifiers: Hypothyroidism type: acquired Qualified Code(s): E03.9 - Hypothyroidism, unspecified (8) Diastolic CHF, chronic Current Visit: Yes Status: Chronic Assessment and plan: Stable. Decreased the dose of nitrate due to better blood pressure control with hemodialysis. Continue beta jones, statin, aspirin. (9) Essential hypertension Current Visit: Yes Status: Chronic Assessment and plan: Blood pressure noted to be well controlled. Hold hydralazine, continue Imdur at a reduced dose and continue the remaining antihypertensives for now. (10) Chronic gouty arthritis Current Visit: Yes Status: Chronic Assessment and plan: Continue only Tylenol for pain control at this time due to excessive lethargy with oxycodone and hemodialysis. - Subjective Interval history: Patient is noted to be very drowsy and quite confused this morning, likely related to the use of oxycodone for pain control. He is arousable to touch, however cannot answer appropriately. Does not report nausea, vomiting but reportedly complained of abdominal pain overnight. He did have bowel movements overnight with senna and Colace. - Constitutional Vitals: Temp Pulse Resp BP Pulse Ox 98.9 F 72 28 134/60 96 05/20/16 08:06 05/20/16 08:06 05/20/16 03:55 05/20/16 08:06 05/20/16 08:06 General appearance: Present: A&O X 0 (Drowsy and lethargic, arousable to touch) - Respiratory Respiratory exam: Present: rales (Continues to have bibasal rales). Absent: accessory muscle use, rhonchi, wheezes - Cardiovascular Cardiovascular exam: Present: RRR, +S1, +S2. Absent: diastolic murmur, gallop, rubs, systolic murmur - Extremities Exam Extremities exam: Present: pedal edema (Slightly improved 3+ pedal edema), warm , radial pulses palpable and symetrical. Absent: calf tenderness, cyanotic Internal Medicine: Result - Labs CBC & Chem 7: 05/20/16 09:21 05/20/16 09:21 Labs: Short CBC 05/20/16 Range/Units 09:21 WBC 9.0 (4.3-11.1) K/mcL Hgb 9.4 L (12.9-16.9) g/dL Hct 29.3 L (37.5-50.1) % Plt Count 268 (140-400) K/mcL BMP 05/20/16 09:21 Sodium 137 Potassium 4.8 H Chloride 102 Carbon Dioxide 25 BUN 86 H Creatinine 3.16 H Glucose 146 H Calcium 8.3 L - ABG Interpretation ABG results: ABG ABG pH 7.27 pH Units (7.32-7.45) L 05/15/16 06:39 ABG pCO2 45 mmHg (35-45) 05/15/16 06:39 ABG pO2 89 mmHg (85-104) 05/15/16 06:39 ABG O2 Saturation 95 % (95-98) 05/15/16 06:39 - VTE Documentation of Mechanical Device: Graduated compression elastic hosiery Consult Discharge Plan - Plan Referrals: Cayden Rhoades MD [Partnered Physician] - 05/31/16 3:00 pm (This appointment will be [place]. ) Gunner Harley DO [Primary Care Provider] - (Patient is from [facility] No PCP appointment needed)
[2016-05-20] MEDS: Isosorbide MONOnitrate (24 HR) 30 MG TAB.ER.24H PO SCH (17:19)
[2016-05-20] MEDS: amLODIPine 5 MG TABLET PO SCH (17:19)
[2016-05-20] MEDS: Mirtazapine 15 MG TABLET PO SCH (20:30)
[2016-05-21] MEDS: *HR* Heparin 5,000 UNIT/ML VIAL SQ SCH ×2 (05:53→17:03)
[2016-05-21] MEDS ORDERED: 0.9 % Sodium Chloride 2,000 ML ONE (08:35)
--- NOTE | 2016-05-21 08:38 | Nephrology Progress Note ---
Date of Encounter: 05/21/16 Time of Encounter: 08:10 - Assessment and Plan (1) ANASTACIO (acute kidney injury) Current Visit: Yes Status: Acute ANASTACIO/CKD IV, viral syndrome and volume depletion. Will do UF today. Orders given. No longer hypersomnolent. Pleasant , somewhat confused conversation r/t drug induced delerium due to narcotics. Holding ASA in case will need chronic HD and Mr. Hilario changes mind and agrees with placement of tunneled catheter. Subjective Principal diagnosis: Viral illness, viral myocarditis Interval history: Arouses easily. Pleasant , somewhat confused conversation. Thinks is not in "[facility] [place] as he's being told." Asking about Dr. Quijano. Objective - Vital Signs Vital signs: Vital Signs Temp Pulse Resp BP Pulse Ox 05/21/16 07:12 98.0 F 84 18 164/69 97 05/21/16 04:52 97.9 F 75 18 96 05/21/16 03:49 97.9 F 81 18 156/61 96 05/21/16 00:30 73 18 97 05/21/16 00:01 98.4 F 72 18 132/56 97 05/20/16 21:59 98.0 F 76 20 147/72 95 05/20/16 20:45 97.9 F 81 20 147/72 97 05/20/16 17:57 141/58 05/20/16 17:09 84 97 05/20/16 17:00 97.9 F 22 148/72 05/20/16 16:57 98.1 F 77 20 160/60 98 05/20/16 16:45 138/60 05/20/16 16:30 132/69 05/20/16 16:15 126/70 05/20/16 16:00 148/58 05/20/16 15:45 149/70 05/20/16 15:30 166/62 05/20/16 15:15 136/61 05/20/16 15:00 164/56 05/20/16 14:45 123/63 05/20/16 14:30 132/63 05/20/16 14:15 138/62 05/20/16 14:00 98.1 F 20 127/53 05/20/16 11:48 70 28 95 05/20/16 11:29 98.8 F 71 18 130/69 97 05/20/16 10:31 60 96 Intake and Output 05/20/16 05/21/16 05/21/16 23:59 07:59 15:59 Intake Total 700 / 700 600 / 600 Output Total 3775 / 3775 75 / 75 Balance -3075 / -3075 525 / 525 Intake: Oral 700 / 700 600 / 600 Output: Total Dialysis Output 3600 / 3600 Catheter 175 / 175 75 / 75 Other: Meal Dinner Percent of Meal Consumed 0% Stool Size Moderate Stool Consistency formed Stool Color Brown # Bowel Movements 1 Weight 89.9 kg Blood Glucose* 190 157 Hemodialysis Net Fluid 3600 Removed (mL) Patient Weight 05/21/16 23:59 Weight 89.9 kg - General Appearance General appearance: Present: well-developed, well-nourished, appears started age EENT: Present: mucous membranes moist Neck: Present: no JVD Respiratory: Present: clear Additional Comments: diminished t/o Cardiology: Present: edema, regular rate, regular rhythm Additional Comments: edema knees down resolved. Continues to have 2+ dependent edema buttock/thigh/ scrotum/penile Gastrointestinal: Present: normoactive bowel sounds, no tenderness Integumentary: Present: warm and dry Neurologic: Present: alert and oriented x3 Psychiatric: Present: mood/affect appropriate, cooperative - Lab 05/20/16 09:21 05/20/16 09:21 Most recent lab results ABG pH 7.27 pH Units (7.32-7.45) L 05/15/16 06:39 ABG pCO2 45 mmHg (35-45) 05/15/16 06:39 ABG pO2 89 mmHg (85-104) 05/15/16 06:39 ABG HCO3 20.7 mEQ/L (21-27) L 05/15/16 06:39 ABG O2 Saturation 95 % (95-98) 05/15/16 06:39 Calcium 8.3 mg/dL (8.6-10.8) L 05/20/16 09:21 Phosphorus 6.0 mg/dL (2.3-4.7) H 05/19/16 04:30 Magnesium 2.1 mg/dL (1.6-2.6) 05/19/16 04:30 - VTE Documentation of Mechanical Device: Graduated compression elastic hosiery Consult Discharge Plan - Plan Referrals: Cayden Rhoades MD [Partnered Physician] - 05/31/16 3:00 pm (This appointment will be [place]. ) Gunner Harley DO [Primary Care Provider] - (Patient is from [facility] No PCP appointment needed)
[2016-05-21] MEDS: Sennosides/Docusate Sodium TABLET PO SCH ×2 (08:44→20:17)
[2016-05-21] MEDS: Insulin LISPRO 300 UNITS/3 ML VIAL SQ SCH ×4 (08:45→20:17)
[2016-05-21] MEDS: Thiamine (B-1) 100 MG TABLET PO SCH (08:45)
--- NOTE | 2016-05-21 09:03 | Internal Med Progress Note ---
Date of Encounter: 05/21/16 Time of Encounter: 09:00 - Assessment and plan (1) Acute encephalopathy Current Visit: Yes Status: Acute Assessment and plan: Likely related to her elderly age, sundowning, medications. Held narcotics and sedatives. Currently improved. (2) Acute respiratory failure Current Visit: Yes Status: Acute Assessment and plan: Likely related to worsening renal failure and anemia. Improving oxygen requirements with hemodialysis, Continue supplemental oxygen; Qualifiers: Respiratory failure complication: hypoxia Qualified Code(s): J96.01 - Acute respiratory failure with hypoxia (3) Acute worsening of stage 4 chronic kidney disease Current Visit: Yes Status: Acute Assessment and plan: Nephrology on board. Patient received right internal jugular temporary hemodialysis catheter, underwent 3 hemodialysis sessions, plan for ultrafiltration today. Avoid new nephrotoxic agents and contrast. Continue sodium bicarbonate per nephrology, patient may need phosphate binders. Patient will likely require long-term hemodialysis, pending final decision. Patient will need to be in the hospital until this is decided and will require a tunneled hemodialysis catheter for long-term hemodialysis, if indicated, prior to discharge. (4) Anemia Current Visit: Yes Status: Chronic Assessment and plan: Likely related to worsening renal failure. Hemoglobin stable, at around 9, received 1 unit PRBC during this admission. Will require erythropoietin with hemodialysis. Qualifiers: Anemia type: unspecified type Qualified Code(s): D64.9 - Anemia, unspecified (5) Elevated troponin I level Current Visit: Yes Status: Resolved (6) Diabetes Current Visit: Yes Status: Chronic Assessment and plan: Continue Accu-Chek blood glucose monitoring . Blood sugars noted to well controlled. continue low-dose sliding scale insulin. Diabetic diet. Qualifiers: Diabetes mellitus type: type 2 Diabetes mellitus complication status: with kidney complications Diabetes mellitus complication detail: with chronic kidney disease Diabetes mellitus shelter insulin use: without shelter use Chronic kidney disease stage: stage 4 (severe) Qualified Code(s): E11.22 - Type 2 diabetes mellitus with diabetic chronic kidney disease; N18.4 - Chronic kidney disease, stage 4 (severe) (7) Hypothyroid Current Visit: Yes Status: Chronic Qualifiers: Hypothyroidism type: acquired Qualified Code(s): E03.9 - Hypothyroidism, unspecified (8) Diastolic CHF, chronic Current Visit: Yes Status: Chronic (9) Essential hypertension Current Visit: Yes Status: Chronic Assessment and plan: Blood pressure noted to be fairly controlled. Hold hydralazine, increasing Imdur to home dose and continue the remaining antihypertensives for now. (10) Chronic gouty arthritis Current Visit: Yes Status: Chronic Assessment and plan: Continue only Tylenol for pain control at this time due to excessive lethargy with oxycodone and hemodialysis. - Subjective Interval history: Patient appears much better today. Good appetite. More alert and awake, although occasionally confused. No chest pain or subjective shortness of breath reported. - Constitutional Vitals: Temp Pulse Resp BP Pulse Ox 98.0 F 84 18 164/69 97 05/21/16 07:12 05/21/16 07:12 05/21/16 07:12 05/21/16 07:12 05/21/16 07:12 General appearance: Present: A&O X 2 - Respiratory Respiratory exam: Present: rhonchi (Bilateral posterior scattered rhonchi). Absent: accessory muscle use, rales, wheezes - Cardiovascular Cardiovascular exam: Present: RRR, +S1, +S2. Absent: diastolic murmur, gallop, rubs, systolic murmur - Extremities Exam Extremities exam: Present: pedal edema (Improving pedal edema with hemodialysis) , warm, radial pulses palpable and symetrical. Absent: calf tenderness, cyanotic Internal Medicine: Result - Labs CBC & Chem 7: 05/20/16 09:21 05/20/16 09:21 Labs: Short CBC 05/20/16 Range/Units 09:21 WBC 9.0 (4.3-11.1) K/mcL Hgb 9.4 L (12.9-16.9) g/dL Hct 29.3 L (37.5-50.1) % Plt Count 268 (140-400) K/mcL BMP 05/20/16 09:21 Sodium 137 Potassium 4.8 H Chloride 102 Carbon Dioxide 25 BUN 86 H Creatinine 3.16 H Glucose 146 H Calcium 8.3 L - ABG Interpretation ABG results: ABG ABG pH 7.27 pH Units (7.32-7.45) L 05/15/16 06:39 ABG pCO2 45 mmHg (35-45) 05/15/16 06:39 ABG pO2 89 mmHg (85-104) 05/15/16 06:39 ABG O2 Saturation 95 % (95-98) 05/15/16 06:39 - VTE Documentation of Mechanical Device: Graduated compression elastic hosiery Consult Discharge Plan - Plan Referrals: Cayden Rhoades MD [Partnered Physician] - 05/31/16 3:00 pm (This appointment will be [place]. ) Gunner Harley DO [Primary Care Provider] - (Patient is from [facility] No PCP appointment needed)
[2016-05-21] MEDS ORDERED: 0.9 % Sodium Chloride 250 ML IV PRN (09:15)
[2016-05-21] MEDS: Isosorbide MONOnitrate (24 HR) 30 MG TAB.ER.24H PO SCH (17:00)
[2016-05-21] MEDS: amLODIPine 5 MG TABLET PO SCH (17:02)
[2016-05-21] MEDS: Mirtazapine 15 MG TABLET PO SCH (20:17)
[2016-05-22] MEDS: Ipratropium/Albuterol Neb 3 ML IH PRN (01:17)
[2016-05-22] MEDS: *HR* Heparin 5,000 UNIT/ML VIAL SQ SCH ×2 (05:08→18:41)
[2016-05-22 06:06] LABS: Calcium 8.3 mg/dL (8.6-10.8); Potassium 4.1 mEq/L (3.5-4.5)
[2016-05-22] MEDS: Sennosides/Docusate Sodium TABLET PO SCH ×2 (08:55→20:18)
[2016-05-22] MEDS: Insulin LISPRO 300 UNITS/3 ML VIAL SQ SCH ×4 (08:55→20:19)
[2016-05-22] MEDS: Thiamine (B-1) 100 MG TABLET PO SCH (08:55)
--- NOTE | 2016-05-22 10:17 | Nephrology Progress Note ---
Date of Encounter: 05/22/16 Time of Encounter: 09:40 - Assessment and Plan (1) ANASTACIO (acute kidney injury) Current Visit: Yes Status: Acute ANASTACIO/CKD IV, viral syndrome and volume depletion. Back to baseline mental status , r/t drug induced delerium due to narcotics. Holding ASA in case will need chronic HD and Mr. Hilario changes mind and agrees with placement of tunneled catheter. NO HD or UF today. Subjective Principal diagnosis: Viral illness, viral myocarditis Interval history: Sitting up in chair, improved mentation. Appropriate conversation. Objective - Vital Signs Vital signs: Vital Signs Temp Pulse Resp BP Pulse Ox 05/22/16 07:06 97.6 F 88 20 136/58 94 L 05/22/16 03:59 97.7 F 70 18 155/60 94 L 05/22/16 01:17 20 93 L 05/22/16 00:57 98.5 F 70 20 142/62 94 L 05/21/16 20:34 99.3 F 89 16 157/64 94 L 05/21/16 18:33 98.9 F 72 16 117/55 92 L 05/21/16 16:12 78 05/21/16 16:08 99.0 F 78 20 135/81 95 05/21/16 15:13 142/88 05/21/16 15:12 132/59 05/21/16 14:29 70 97 05/21/16 13:25 98.1 F 05/21/16 13:14 77 24 143/63 96 05/21/16 12:45 98.1 F 142/60 05/21/16 11:45 145/64 05/21/16 11:30 132/53 05/21/16 11:15 137/78 05/21/16 11:00 144/66 05/21/16 10:45 98.1 F 146/62 Intake and Output 05/21/16 05/22/16 05/22/16 23:59 07:59 15:59 Intake Total 240 / 240 480 / 480 Output Total / 25 Balance 215 / 215 480 / 480 Intake: Oral 240 / 240 480 / 480 Output: Urine 25 / 25 Urethral (Carrizales) 25 / Other: Meal Dinner Breakfast Percent of Meal Consumed 10% 95% Stool Size Large Stool Consistency loose Stool Characteristics Normal for Patient Stool Color Brown # Bowel Movements 1 Weight 86.5 kg Blood Glucose* 249 157 Patient Weight 05/22/16 23:59 Weight 86.5 kg - General Appearance General appearance: Present: well-developed, well-nourished, appears started age EENT: Present: mucous membranes moist Neck: Present: no JVD Respiratory: Present: clear Cardiology: Present: regular rate, regular rhythm Additional Comments: dependent edema in thighs, buttock, scrotum /penis much improved. No edema below knees. Gastrointestinal: Present: normoactive bowel sounds, no tenderness Integumentary: Present: warm and dry Neurologic: Present: alert and oriented x3 Psychiatric: Present: mood/affect appropriate, cooperative - Lab 05/20/16 09:21 05/22/16 05:08 Most recent lab results ABG pH 7.27 pH Units (7.32-7.45) L 05/15/16 06:39 ABG pCO2 45 mmHg (35-45) 05/15/16 06:39 ABG pO2 89 mmHg (85-104) 05/15/16 06:39 ABG HCO3 20.7 mEQ/L (21-27) L 05/15/16 06:39 ABG O2 Saturation 95 % (95-98) 05/15/16 06:39 Calcium 8.3 mg/dL (8.6-10.8) L 05/22/16 05:08 Phosphorus 6.0 mg/dL (2.3-4.7) H 05/19/16 04:30 Magnesium 2.1 mg/dL (1.6-2.6) 05/19/16 04:30 - VTE Documentation of Mechanical Device: Graduated compression elastic hosiery Consult Discharge Plan - Plan Referrals: Cayden Rhoades MD [Partnered Physician] - 05/31/16 3:00 pm (This appointment will be [place]. ) Gunner Harley DO [Primary Care Provider] - (Patient is from [facility] No PCP appointment needed)
[2016-05-22] MEDS: Acetaminophen 325 MG TABLET PO PRN (16:01)
--- NOTE | 2016-05-22 16:23 | Internal Med Progress Note ---
Date of Encounter: 05/22/16 Time of Encounter: 16:20 - Assessment and plan (1) Acute encephalopathy Current Visit: Yes Status: Resolved Assessment and plan: Likely related to her elderly age, sundowning, medications. Held narcotics and sedatives. Currently improved. (2) Acute respiratory failure Current Visit: Yes Status: Acute Assessment and plan: Likely related to worsening renal failure and anemia. Improving oxygen requirements with hemodialysis, Continue supplemental oxygen; noted to require 2 L/m oxygen via nasal cannula. Qualifiers: Respiratory failure complication: hypoxia Qualified Code(s): J96.01 - Acute respiratory failure with hypoxia (3) Acute worsening of stage 4 chronic kidney disease Current Visit: Yes Status: Acute Assessment and plan: Nephrology on board. Patient received right internal jugular temporary hemodialysis catheter, underwent 3 hemodialysis sessions, and ultrafiltration so far. Serum creatinine stays around 3.3-3.5, pedal edema is improving. Decision regarding long-term hemodialysis still pending. Avoid new nephrotoxic agents and contrast. Continue sodium bicarbonate per nephrology, patient may need phosphate binders. Patient will likely require long-term hemodialysis, pending final decision. Patient will need to be in the hospital until this is decided and will require a tunneled hemodialysis catheter for long-term hemodialysis, if indicated, prior to discharge. (4) Anemia Current Visit: Yes Status: Chronic Assessment and plan: Likely related to worsening renal failure. Hemoglobin stable, at around 9, received 1 unit PRBC during this admission. Will require erythropoietin with hemodialysis. Qualifiers: Anemia type: unspecified type Qualified Code(s): D64.9 - Anemia, unspecified (5) Elevated troponin I level Current Visit: Yes Status: Resolved (6) Diabetes Current Visit: Yes Status: Chronic Assessment and plan: Continue Accu-Chek blood glucose monitoring . Blood sugars noted to be Elevated , we will add low-dose basal insulin. continue low-dose sliding scale insulin. Diabetic diet. Qualifiers: Diabetes mellitus type: type 2 Diabetes mellitus complication status: with kidney complications Diabetes mellitus complication detail: with chronic kidney disease Diabetes mellitus usp insulin use: without intermodal dispatcher use Chronic kidney disease stage: stage 4 (severe) Qualified Code(s): E11.22 - Type 2 diabetes mellitus with diabetic chronic kidney disease; N18.4 - Chronic kidney disease, stage 4 (severe) (7) Hypothyroid Current Visit: Yes Status: Chronic Qualifiers: Hypothyroidism type: acquired Qualified Code(s): E03.9 - Hypothyroidism, unspecified (8) Diastolic CHF, chronic Current Visit: Yes Status: Chronic (9) Essential hypertension Current Visit: Yes Status: Chronic (10) Chronic gouty arthritis Current Visit: Yes Status: Chronic - Subjective Interval history: Appears better today. Sitting up in chair. More alert and oriented. Reports no pain, nausea, vomiting. No chest pain or shortness of breath. Reports not much urine output since 10 AM today. - Constitutional Vitals: Temp Pulse Resp BP Pulse Ox 98 F 60 18 146/63 97 05/22/16 15:49 05/22/16 15:49 05/22/16 15:49 05/22/16 15:49 05/22/16 15:49 General appearance: Present: A&O X 2, answers questions appropriately - Respiratory Respiratory exam: Present: CTAB (Faint end expiratory wheezing occasionally at left base). Absent: accessory muscle use, rales, rhonchi, wheezes - Cardiovascular Cardiovascular exam: Present: RRR, +S1, +S2. Absent: diastolic murmur, gallop, rubs, systolic murmur Internal Medicine: Result - Labs CBC & Chem 7: 05/20/16 09:21 05/22/16 05:08 Labs: BMP 05/22/16 05:08 Sodium 135 L Potassium 4.1 Chloride 97 L Carbon Dioxide 27 BUN 83 H Creatinine 3.38 H Glucose 166 H Calcium 8.3 L - ABG Interpretation ABG results: ABG ABG pH 7.27 pH Units (7.32-7.45) L 05/15/16 06:39 ABG pCO2 45 mmHg (35-45) 05/15/16 06:39 ABG pO2 89 mmHg (85-104) 05/15/16 06:39 ABG O2 Saturation 95 % (95-98) 05/15/16 06:39 - VTE Documentation of Mechanical Device: Graduated compression elastic hosiery Consult Discharge Plan - Plan Referrals: Cayden Rhoades MD [Partnered Physician] - 05/31/16 3:00 pm (This appointment will be [place]. ) Gunner Harley DO [Primary Care Provider] - (Patient is from [facility] No PCP appointment needed)
[2016-05-22] MEDS: amLODIPine 5 MG TABLET PO SCH (18:41)
[2016-05-22] MEDS: Isosorbide MONOnitrate (24 HR) 30 MG TAB.ER.24H PO SCH (18:41)
[2016-05-22] MEDS: Insulin DETEMIR 100 UNIT/ML X5UNITS SQ SCH (20:17)
[2016-05-22] MEDS: Mirtazapine 15 MG TABLET PO SCH (20:18)
--- NOTE | 2016-05-22 20:24 | Electrocardiograph Report ---
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
[2016-05-23 03:17] LABS: Basophils % 0.1 %; Eosinophils # 0.2 K/mcL (0.0-0.6); Eosinophils % 1.5 %; Hematocrit 27.6 % (37.5-50.1); Immature Granulocytes % 0.6 % (0-4); Lymphocytes # 1.2 K/mcL (0.6-4.6); Lymphocytes % 12.2 %; Mean Corpuscular HGB Conc 32.6 g/dL (31.6-35.5); Mean Corpuscular Hemoglobin 27.6 pg (28.0-33.3); Mean Corpuscular Volume 84.7 fL (83.0-100.0); Mean Platelet Volume 10.9 fL (9.4-12.4); Monocytes # 0.7 K/mcL (0.0-1.3); Monocytes % 7.5 %; Neutrophils # 7.7 K/mcL (1.6-8.9); Platelet Count 273 K/mcL (140-400); Red Blood Count 3.26 M/mcL (4.19-5.50); Red Cell Distribution Width 15.6 % (11.5-14.5); Segmented Neutrophils % 78.1 %
[2016-05-23 03:30] LABS: Calcium 8.2 mg/dL (8.6-10.8); Potassium 4.7 mEq/L (3.5-4.5)
[2016-05-23] MEDS: Sennosides/Docusate Sodium TABLET PO SCH ×2 (06:03→21:49)
[2016-05-23] MEDS: Thiamine (B-1) 100 MG TABLET PO SCH (06:04)
[2016-05-23] MEDS: *HR* Heparin 5,000 UNIT/ML VIAL SQ SCH ×2 (06:05→18:29)
[2016-05-23] MEDS: Insulin DETEMIR 100 UNIT/ML X5UNITS SQ SCH ×2 (08:02→21:47)
[2016-05-23] MEDS: Insulin LISPRO 300 UNITS/3 ML VIAL SQ SCH ×4 (08:03→21:56)
--- NOTE | 2016-05-23 08:23 | Nephrology Progress Note ---
Date of Encounter: 05/23/16 Time of Encounter: 08:19 - Assessment and Plan (1) ANASTACIO (acute kidney injury) Current Visit: Yes Status: Acute The patient has acute kidney injury superimposed on chronic kidney disease. There is currently no sign of renal recovery. The patient remains dialysis dependent. He will undergo dialysis today. He is still not yet made a decision regarding whether or not he would want to have chronic dialysis should it become necessary. His blood pressure somewhat on the low side. Then reduce amlodipine. He will be on Aranesp for his anemia. Should the patient decided he wants to proceed with chronic outpatient dialysis he will need to have a tunneled dialysis catheter placed. (2) Chronic kidney disease, stage IV (severe) Current Visit: Yes Status: Acute (3) Benign hypertension with chronic kidney disease, stage IV Current Visit: Yes Status: Acute (4) Generalized weakness Current Visit: Yes Status: Acute Subjective Principal diagnosis: Viral illness, viral myocarditis Interval history: The patient denies any new complaints. His renal function has shown no improvement. Urine output remains low. He continues to have some lower extremity swelling. He has his usual shortness of breath. He will need to undergo dialysis again today. Objective - Vital Signs Vital signs: Vital Signs Temp Pulse Resp BP Pulse Ox 05/23/16 07:05 98.1 F 56 16 127/58 96 05/23/16 00:44 97.9 F 58 20 123/56 95 05/22/16 19:28 97.6 F 58 25 128/50 93 L 05/22/16 15:49 98 F 60 18 146/63 97 05/22/16 10:57 97.4 F L 60 137/51 95 Intake and Output 05/22/16 05/23/16 05/23/16 23:59 07:59 15:59 Intake Total 480 / 480 0 / 0 Balance 480 / 480 0 / 0 Intake: Oral 480 / 480 0 / 0 Other: Meal Dinner Percent of Meal Consumed 75% Stool Size Small Stool Consistency soft Stool Color Brown Blood Glucose* 273 82 - General Appearance Exam: Patient is sitting on the edge of the bed. He is alert and oriented and in no acute distress. Lungs breath sounds. Heart regular rate and rhythm with a 2/6 systolic ejection murmur. Abdomen is benign. There is moderate lower extremity swelling. There is a temporary dialysis catheter in the right internal jugular vein. - Lab 05/23/16 03:13 05/23/16 03:13 Most recent lab results ABG pH 7.27 pH Units (7.32-7.45) L 05/15/16 06:39 ABG pCO2 45 mmHg (35-45) 05/15/16 06:39 ABG pO2 89 mmHg (85-104) 05/15/16 06:39 ABG HCO3 20.7 mEQ/L (21-27) L 05/15/16 06:39 ABG O2 Saturation 95 % (95-98) 05/15/16 06:39 Calcium 8.2 mg/dL (8.6-10.8) L 05/23/16 03:13 Phosphorus 6.0 mg/dL (2.3-4.7) H 05/19/16 04:30 Magnesium 2.1 mg/dL (1.6-2.6) 05/19/16 04:30 - VTE Documentation of Mechanical Device: Graduated compression elastic hosiery Consult Discharge Plan - Plan Referrals: Cayden Rhoades MD [Partnered Physician] - 05/31/16 3:00 pm (This appointment will be [place]. ) Gunner Harley DO [Primary Care Provider] - (Patient is from [facility] No PCP appointment needed)
[2016-05-23] MEDS ORDERED: 0.9 % Sodium Chloride 250 ML IV PRN (08:25)
[2016-05-23] MEDS ORDERED: Darbepoetin 100 MCG/0.5 ML SYRINGE SQ SCH (08:30)
[2016-05-23] MEDS ORDERED: 0.9 % Sodium Chloride 2,000 ML ONE (09:08)
--- NOTE | 2016-05-23 14:34 | Internal Med Progress Note ---
Date of Encounter: 05/23/16 Time of Encounter: 14:31 - Assessment and plan (1) Acute encephalopathy Current Visit: Yes Status: Resolved (2) Acute respiratory failure Current Visit: Yes Status: Acute Assessment and plan: Likely related to worsening renal failure and anemia. Improving oxygen requirements with hemodialysis, Continue supplemental oxygen; noted to require 2 L/m oxygen via nasal cannula. Qualifiers: Respiratory failure complication: hypoxia Qualified Code(s): J96.01 - Acute respiratory failure with hypoxia (3) Acute worsening of stage 4 chronic kidney disease Current Visit: Yes Status: Acute Assessment and plan: Nephrology on board. Patient received right internal jugular temporary hemodialysis catheter, underwent 3 hemodialysis sessions, and ultrafiltration so far. Scheduled for 4th HD session today; Serum creatinine stays around 3.3-4 , pedal edema is improving. Decision regarding long-term hemodialysis still pending. Will consult palliative care as patient is unable to make an informed decision; Avoid new nephrotoxic agents and contrast. Continue sodium bicarbonate per nephrology, patient may need phosphate binders. (4) Anemia Current Visit: Yes Status: Chronic Assessment and plan: Likely related to worsening renal failure. Hemoglobin stable, at around 9, received 1 unit PRBC during this admission. Receiving erythropoietin with hemodialysis. Qualifiers: Anemia type: unspecified type Qualified Code(s): D64.9 - Anemia, unspecified (5) Elevated troponin I level Current Visit: Yes Status: Resolved (6) Diabetes Current Visit: Yes Status: Chronic Assessment and plan: Continue Accu-Chek blood glucose monitoring . Blood sugars noted to be better controlled today; continue Levemir and low-dose sliding scale insulin. Diabetic diet. Qualifiers: Diabetes mellitus type: type 2 Diabetes mellitus complication status: with kidney complications Diabetes mellitus complication detail: with chronic kidney disease Diabetes mellitus fci insulin use: without termite technician use Chronic kidney disease stage: stage 4 (severe) Qualified Code(s): E11.22 - Type 2 diabetes mellitus with diabetic chronic kidney disease; N18.4 - Chronic kidney disease, stage 4 (severe) (7) Hypothyroid Current Visit: Yes Status: Chronic Qualifiers: Hypothyroidism type: acquired Qualified Code(s): E03.9 - Hypothyroidism, unspecified (8) Diastolic CHF, chronic Current Visit: Yes Status: Chronic (9) Essential hypertension Current Visit: Yes Status: Chronic (10) Chronic gouty arthritis Current Visit: Yes Status: Chronic - Subjective Interval history: Resting in bed; reports not feeling too good today; awaiting HD session; Discussed multiple times with patient and family at bedside regarding long-term HD, however patient repeatedly says he is undecided yet; no nausea, vomiting, abdominal pain; does have baseline shortness of breath even at rest, generalized weakness; - Constitutional Vitals: Temp Pulse Resp BP Pulse Ox 98.3 F 63 18 124/62 97 05/23/16 10:04 05/23/16 10:04 05/23/16 10:04 05/23/16 10:04 05/23/16 10:04 General appearance: Present: A&O X 2, answers questions appropriately - Respiratory Respiratory exam: Present: CTAB. Absent: accessory muscle use, rales, rhonchi, wheezes - Cardiovascular Cardiovascular exam: Present: RRR, +S1, +S2. Absent: diastolic murmur, gallop, rubs, systolic murmur - Extremities Exam Extremities exam: Present: pedal edema, warm, radial pulses palpable and symetrical. Absent: calf tenderness, cyanotic Internal Medicine: Result - Labs CBC & Chem 7: 05/23/16 03:13 05/23/16 03:13 Labs: Short CBC 05/23/16 Range/Units 03:13 WBC 9.8 (4.3-11.1) K/mcL Hgb 9.0 L (12.9-16.9) g/dL Hct 27.6 L (37.5-50.1) % Plt Count 273 (140-400) K/mcL Neutrophils # 7.7 (1.6-8.9) K/mcL BMP 05/23/16 03:13 Sodium 132 L Potassium 4.7 H Chloride 95 L Carbon Dioxide 27 BUN 101 H Creatinine 4.04 H Glucose 102 H Calcium 8.2 L - ABG Interpretation ABG results: ABG ABG pH 7.27 pH Units (7.32-7.45) L 05/15/16 06:39 ABG pCO2 45 mmHg (35-45) 05/15/16 06:39 ABG pO2 89 mmHg (85-104) 05/15/16 06:39 ABG O2 Saturation 95 % (95-98) 05/15/16 06:39 - VTE Documentation of Mechanical Device: Graduated compression elastic hosiery Consult Discharge Plan - Plan Referrals: Cayden Rhoades MD [Partnered Physician] - 05/31/16 3:00 pm (This appointment will be [place]. ) Gunner Harley DO [Primary Care Provider] - (Patient is from [facility] No PCP appointment needed)
--- NOTE | 2016-05-23 16:17 | Event Note ---
Date of Encounter: 05/23/16 Time of Encounter: 16:00 New palliative referral on pt - he was recently taken to dialysis and will be there a couple of more hours. Patient's has left the building - attempted to reach by phone. Left voicemail. Hopefully follow up in am if she doesn't call back today.
[2016-05-23] MEDS: Isosorbide MONOnitrate (24 HR) 30 MG TAB.ER.24H PO SCH (18:29)
[2016-05-23] MEDS: amLODIPine 5 MG TABLET PO SCH (18:29)
[2016-05-23] MEDS: Mirtazapine 15 MG TABLET PO SCH (21:49)
[2016-05-24 04:52] LABS: Phosphorous 4.3 mg/dL (2.3-4.7)
[2016-05-24 05:00] LABS: Albumin/Globulin Ratio 0.5 (1.1-2.2); Bilirubin,Total 0.5 mg/dL (0.2-1.2); Calcium 8.5 mg/dL (8.6-10.8); Globulin 4.1 g/dL (2.4-3.5); Potassium 4.3 mEq/L (3.5-4.5); Total Protein 6.1 g/dL (6.0-8.3)
[2016-05-24] MEDS: *HR* Heparin 5,000 UNIT/ML VIAL SQ SCH ×2 (06:05→16:36)
[2016-05-24] MEDS ORDERED: Ferumoxytol 510 MG in 0.9 % Sodium Chloride 100 ML IVPB ONE (07:55)
--- NOTE | 2016-05-24 07:55 | Nephrology Progress Note ---
Date of Encounter: 05/24/16 Time of Encounter: 07:53 - Assessment and Plan (1) ANASTACIO (acute kidney injury) Current Visit: Yes Status: Acute Patient shows no sign of renal recovery. He remains dialysis dependent. He is leaning towards going on chronic dialysis. He is not betas final decision yet going to come back later today and hopefully speak with the patient's and the patient to hopefully make a final decision. Patient will not have dialysis today. (2) Chronic kidney disease, stage IV (severe) Current Visit: Yes Status: Acute (3) Benign hypertension with chronic kidney disease, stage IV Current Visit: Yes Status: Acute (4) Generalized weakness Current Visit: Yes Status: Acute Subjective Principal diagnosis: Viral illness, viral myocarditis Interval history: Patient says he feels weak. He did receive dialysis yesterday. He remains oliguric. Urine output is only recorded as 25 mL's. Vital signs are stable. Objective - Vital Signs Vital signs: Vital Signs Temp Pulse Resp BP Pulse Ox 05/24/16 05:34 97.9 F 59 22 136/61 98 05/24/16 00:57 98.4 F 63 20 127/60 95 05/23/16 18:27 97.5 F L 80 168/65 05/23/16 18:01 98.3 F 20 135/55 05/23/16 18:00 132/54 05/23/16 17:45 123/61 05/23/16 17:30 125/59 05/23/16 17:15 136/56 05/23/16 17:00 117/56 05/23/16 16:45 128/92 05/23/16 16:30 118/50 05/23/16 16:15 120/57 05/23/16 16:00 130/54 05/23/16 15:45 120/65 05/23/16 15:30 131/51 05/23/16 15:15 134/49 05/23/16 15:00 98 F 22 134/54 05/23/16 10:04 98.3 F 63 18 124/62 97 05/23/16 09:35 127/58 Intake and Output 05/23/16 05/23/16 05/24/16 15:59 23:59 07:59 Intake Total 600 / 600 0 / 0 Output Total 3125 / 3125 200 / 200 Balance 600 / 600 -3125 / -3125 -200 / -200 Intake: Oral 0 / 0 0 / 0 Intake, Rinseback and 600 / 600 Flushes Output: Urine 25 / 25 200 / 200 Total Dialysis Output 3100 / 3100 Other: Percent of Meal Consumed 0% Stool Size Large Smear Stool Consistency soft soft formed Stool Color Brown Brown # Voids 1 1 Weight 86.5 kg 85.5 kg Blood Glucose* 157 98 Hemodialysis Net Fluid 774 2500 Removed (mL) Patient Weight 05/24/16 23:59 Weight 85.5 kg - General Appearance Exam: Patient is alert and oriented. He is in no acute distress. He appears chronically ill. Lung sounds. Heart regular rhythm with a 2/6 ejection murmur. Abdomen is benign. Lower extremity swelling is improving. There is a temporary dialysis catheter in the right internal jugular vein. - Lab 05/23/16 03:13 05/24/16 04:25 Most recent lab results ABG pH 7.27 pH Units (7.32-7.45) L 05/15/16 06:39 ABG pCO2 45 mmHg (35-45) 05/15/16 06:39 ABG pO2 89 mmHg (85-104) 05/15/16 06:39 ABG HCO3 20.7 mEQ/L (21-27) L 05/15/16 06:39 ABG O2 Saturation 95 % (95-98) 05/15/16 06:39 Calcium 8.5 mg/dL (8.6-10.8) L 05/24/16 04:25 Phosphorus 4.3 mg/dL (2.3-4.7) 05/24/16 04:25 Magnesium 2.1 mg/dL (1.6-2.6) 05/19/16 04:30 - VTE Documentation of Mechanical Device: Graduated compression elastic hosiery Consult Discharge Plan - Plan Referrals: Cayden Rhoades MD [Partnered Physician] - 05/31/16 3:00 pm (This appointment will be [place]. ) Gunner Harley DO [Primary Care Provider] - (Patient is from [facility] No PCP appointment needed)
[2016-05-24] MEDS: Thiamine (B-1) 100 MG TABLET PO SCH (08:58)
[2016-05-24] MEDS: Sennosides/Docusate Sodium TABLET PO SCH ×2 (08:58→22:33)
[2016-05-24] MEDS: Insulin LISPRO 300 UNITS/3 ML VIAL SQ SCH ×4 (09:03→22:32)
[2016-05-24] MEDS: Insulin DETEMIR 100 UNIT/ML X5UNITS SQ SCH ×2 (09:06→22:32)
--- NOTE | 2016-05-24 10:55 | Palliative - Consult Note ---
Date of Encounter: 05/24/16 Time of Encounter: 10:00 - Assessment and Plan (1) Generalized weakness Current Visit: Yes Status: Acute Assessment and plan: Continues with PT/OT. Agreeable to rehab on D/C. (2) Constipation by delayed colonic transit Current Visit: Yes Status: Acute Assessment and plan: Continue Senokot BID - has dulcolax suppository PRN. + BM yesterday (3) Goals of care, counseling/discussion Current Visit: Yes Status: Acute Assessment and plan: Met with pt, , and pt sister re: goals of care. He has been well informed by Dr. Isabel of his clinical situation and need for terminal operations manager dialysis as this point. Discussed the benefits vs burden of therapy and he is aware that not pursuing to continue dialysis would mean shorter length of life. We discussed quality of life and what was important to him. At this point, pt decided to proceed with terminal operations manager dialysis therapy. He is aware that he may decide at some point in time to discontinue this, if his goals of care change. at bedside in agreement. He does desire to continue DNR/DNI states and does not want intubation or heroic measures in the event his condition should deteriorate. State DNR form completed and signed by pt. Copies provided to and placed on medical record here. Social Service was contact to follow discharge plan. Notified Dr. Isabel of meeting and pt decision. (4) CKD (chronic kidney disease) Current Visit: Yes Status: Acute Qualifiers: Chronic kidney disease stage: stage 4 (severe) Qualified Code(s): N18.4 - Chronic kidney disease, stage 4 (severe) Palliative-CN HPI - Data of Consult Requesting Physician: Lauryn Jefferson MD Primary Care Provider: Gunner Harley - Consult Narrative History of present illness: Mr. Hilario is a 89 year old male with a history of diabetes and renal disease, who was admitted with weakness and nausea/vomiting of 3 days duration. Patient was found to be dehydrated, and orginally thought to be viral in origin. His acute kidney injury ultimately did not respond to fluids, and pt did begin dialysis. Nephrology has been following closely. It is thought, at this point, that pt kidney will not recover and he will require ongoing retirement dialysis. Patient and have been undecided regarding their goals of care and if this is something he desires terminal operations manager. Palliative care was consulted to assist with goals of care discussion. CC: Lauryn Jefferson MD Past Med Surg Social Fam HX - Past Medical History Medical history: coronary artery disease, diabetes, GERD, hypertension, kidney stones, myocardial infarction, other Psychiatric history: no psych history - Past Surgical History Surgical History: carotid endarterectomy, cholecystectomy, herniorrhaphy, other - Social History Smoking Status: Former smoker Smokeless Tobacco Status: No Alcohol use: none Drug use: none - Family History Mother Adopted: No Family Member Ethnicity: Non- Living Status: Hx Family Cardiac Disorders: Yes (hypertension) Hx Family Respiratory Disorders: No Hx Family Cancer: No Hx Family GI Disorders: No Hx Family Endocrine Disorder: No Hx Family Neuromuscular Disorders: No Hx Family Neurologic Disorders: Yes (stroke) Hx Family HEENT Disorders: No Hx Family Autoimmune Disorders: No Father Adopted: No Family Member Ethnicity: Non- Living Status: Hx Family Cardiac Disorders: No Hx Family Respiratory Disorders: No Hx Family Cancer: No Hx Family GI Disorders: No Hx Family Endocrine Disorder: No Hx Family Neuromuscular Disorders: No Hx Family Neurologic Disorders: No Hx Family HEENT Disorders: No Hx Family Autoimmune Disorders: No Medications and Allergies Amlodipine [Norvasc] 5 mg PO QPM 02/11/15 [History] Aspirin 81 mg PO QPM 02/11/15 [History] Calcitriol [Rocaltrol] 0.25 mcg PO QAM 02/11/15 [History] Doxazosin [Cardura] 2 mg PO HS 02/11/15 [History] Isosorbide MONOnitrate [Isosorbide Mononitrate] 60 mg PO QPM 02/11/15 [History] Levothyroxine [Synthroid] 75 mcg PO QAM 02/11/15 [History] Torsemide [Demadex] 20 mg PO QAM 02/11/15 [History] Albuterol Sulfate [Albuterol Inhaler] 1 puff IH Q6HR 5 Days 02/14/15 [Rx] Allopurinol [Zyloprim 100 MG] 100 mg PO DAILY 05/09/16 [History] Ferrous Sulfate [Iron] 325 mg PO BID 05/09/16 [History] Omeprazole [Omeprazole] 10 mg PO DAILY 05/09/16 [History] Sodium Bicarbonate 650 mg PO BID 05/09/16 [History] Allergies furosemide [From Lasix] Allergy (Verified 05/09/16 10:43) Rash Penicillins [PCN] Allergy (Verified 05/09/16 10:43) Rash All systems: reviewed and no additional remarkable complaints except as stated ( generalized weakness, pain from gout, shortness of breath with exertion) Palliative Care-Exam - Constitutional Vitals: Temp Pulse Resp BP Pulse Ox 97.9 F 59 22 136/61 98 05/24/16 05:34 05/24/16 05:34 05/24/16 05:34 05/24/16 05:34 05/24/16 05:34 General appearance: Present: no acute distress - Head Head Exam: Present: normal inspection, normocephalic - Eye Eye exam: Present: normal appearance, PERRL - Respiratory Respiratory exam: Present: decreased breath sounds, CTAB - Cardiovascular Cardiovascular exam: Present: +S1, +S2 - GI/Abdominal Exam GI/Abdominal exam: Present: normal bowel sounds, soft - Neurological Exam Neurological exam: Present: alert, oriented X3, strengths equal and symetr throughout - Psychiatric Psychiatric exam: Present: normal affect, normal mood - Skin Skin exam: Present: dry, warm Internal Medicine - CN: Reslt - Labs CBC & Chem 7: 05/23/16 03:13 05/24/16 04:25 Labs: BMP 05/24/16 04:25 Sodium 133 L Potassium 4.3 Chloride 96 L Carbon Dioxide 28 BUN 58 H D Creatinine 2.98 H Glucose 88 Calcium 8.5 L Liver Function 05/24/16 Range/Units 04:25 Total Bilirubin 0.5 (0.2-1.2) mg/dL AST 32 (5-34) Units/L ALT 25 (0-55) Units/L Alkaline Phosphatase 103 (38-126) Units/L Albumin 2.0 L (3.5-5.0) g/dL - ABG Interpretation ABG results: ABG ABG pH 7.27 pH Units (7.32-7.45) L 05/15/16 06:39 ABG pCO2 45 mmHg (35-45) 05/15/16 06:39 ABG pO2 89 mmHg (85-104) 05/15/16 06:39 ABG O2 Saturation 95 % (95-98) 05/15/16 06:39 Consult Discharge Plan - Plan Referrals: Cayden Rhoades MD [Partnered Physician] - 05/31/16 3:00 pm (This appointment will be [place]. ) Gunner aHrley DO [Primary Care Provider] - (Patient is from [facility] No PCP appointment needed) Palliative Quality Palliative Quality: Screen for Code Status: Yes, Screen for Goals of Care: Yes, Screen for Pain: Yes, If Pain Regimen Started, Initiate Bowel Regimen: NA, Screen for Nausea/Vomitting: Yes
--- NOTE | 2016-05-24 13:51 | Internal Med Progress Note ---
Date of Encounter: 05/24/16 Time of Encounter: 13:49 - Assessment and plan (1) Acute respiratory failure Current Visit: Yes Status: Acute Assessment and plan: Likely related to worsening renal failure and anemia. Improving oxygen requirements with hemodialysis, Continue supplemental oxygen; noted to require 2 L/m oxygen via nasal cannula. Qualifiers: Respiratory failure complication: hypoxia Qualified Code(s): J96.01 - Acute respiratory failure with hypoxia (2) Acute worsening of stage 4 chronic kidney disease Current Visit: Yes Status: Acute Assessment and plan: Nephrology on board. Serum creatinine has improved mildly today. Patient has decided to continue hemodialysis for now, planned for permacath placement tomorrow. keep NPO overnight. Avoid new nephrotoxic agents and contrast. Continue sodium bicarbonate per nephrology, patient may need phosphate binders. (3) Anemia Current Visit: Yes Status: Chronic Assessment and plan: Likely related to worsening renal failure. Hemoglobin stable, at around 9, received 1 unit PRBC during this admission. Receiving erythropoietin with hemodialysis. also receiving iron sucrose. Qualifiers: Anemia type: unspecified type Qualified Code(s): D64.9 - Anemia, unspecified (4) Diabetes Current Visit: Yes Status: Chronic Assessment and plan: Continue Accu-Chek blood glucose monitoring . continue Levemir and low-dose sliding scale insulin. Diabetic diet. Qualifiers: Diabetes mellitus type: type 2 Diabetes mellitus complication status: with kidney complications Diabetes mellitus complication detail: with chronic kidney disease Diabetes mellitus detention insulin use: without detention use Chronic kidney disease stage: stage 4 (severe) Qualified Code(s): E11.22 - Type 2 diabetes mellitus with diabetic chronic kidney disease; N18.4 - Chronic kidney disease, stage 4 (severe) (5) Hypothyroid Current Visit: Yes Status: Chronic Qualifiers: Hypothyroidism type: acquired Qualified Code(s): E03.9 - Hypothyroidism, unspecified (6) Acute encephalopathy Current Visit: Yes Status: Resolved Assessment and plan: Likely related to her elderly age, sundowning, medications. Held narcotics and sedatives. Currently improved. (7) Elevated troponin I level Current Visit: Yes Status: Resolved Assessment and plan: Likely related to demand ischemia from respiratory failure along with possible viral myopericarditis. Echocardiogram showed preserved EF and moderate pericardial effusion with no e/o- tamponade. Cardiology signed off, no further inpatient intervention recommended. - Time Spent With Patient 25 - 35 minutes - Subjective Interval history: Patient seen at the bedside with the . Denies any complaints at this time. Patient willing to undergo dialysis for now, planned for PermCath placement tomorrow morning. Renal following. - Constitutional Vitals: Temp Pulse Resp BP Pulse Ox 97.8 F 80 18 133/62 92 L 05/24/16 11:38 05/24/16 11:38 05/24/16 11:38 05/24/16 11:38 05/24/16 11:38 General appearance: Present: A&O X 2, answers questions appropriately Exam: General appearance: Present: A&O X 2, answers questions appropriately - Respiratory Respiratory exam: Present: CTAB. Absent: accessory muscle use, rales, rhonchi, wheezes - Cardiovascular Cardiovascular exam: Present: RRR, +S1, +S2. Absent: diastolic murmur, gallop, rubs, systolic murmur abdomen- soft, non tender, bs are present - Extremities Exam Extremities exam: Present: pedal edema, warm, radial pulses palpable and symetrical. Absent: calf tenderness, cyanotic Internal Medicine: Result - Labs CBC & Chem 7: 05/23/16 03:13 05/24/16 04:25 Labs: BMP 05/24/16 04:25 Sodium 133 L Potassium 4.3 Chloride 96 L Carbon Dioxide 28 BUN 58 H D Creatinine 2.98 H Glucose 88 Calcium 8.5 L Liver Function 05/24/16 Range/Units 04:25 Total Bilirubin 0.5 (0.2-1.2) mg/dL AST 32 (5-34) Units/L ALT 25 (0-55) Units/L Alkaline Phosphatase 103 (38-126) Units/L Albumin 2.0 L (3.5-5.0) g/dL - ABG Interpretation ABG results: ABG ABG pH 7.27 pH Units (7.32-7.45) L 05/15/16 06:39 ABG pCO2 45 mmHg (35-45) 05/15/16 06:39 ABG pO2 89 mmHg (85-104) 05/15/16 06:39 ABG O2 Saturation 95 % (95-98) 05/15/16 06:39 - VTE Documentation of Mechanical Device: Graduated compression elastic hosiery Consult Discharge Plan - Plan Referrals: Cayden Rhoades MD [Partnered Physician] - 05/31/16 3:00 pm (This appointment will be [place]. ) Gunner Harley, [Primary Care Provider] - (Patient is from [facility] No PCP appointment needed)
[2016-05-24 13:59] LABS: INR 1.3; Prothrombin Time 13.6 Seconds (9.4-12.1)
[2016-05-24] MEDS: Isosorbide MONOnitrate (24 HR) 30 MG TAB.ER.24H PO SCH (16:35)
[2016-05-24] MEDS: amLODIPine 5 MG TABLET PO SCH (16:36)
[2016-05-24] MEDS: Acetaminophen 325 MG TABLET PO PRN (16:37)
[2016-05-24] MEDS: Mirtazapine 15 MG TABLET PO SCH (22:35)
[2016-05-25 04:26] LABS: Basophils % 0.2 %; Eosinophils % 0.3 %; Hematocrit 27.6 % (37.5-50.1); Lymphocytes # 1.1 K/mcL (0.6-4.6); Lymphocytes % 10.8 %; Mean Corpuscular HGB Conc 32.6 g/dL (31.6-35.5); Mean Corpuscular Volume 85.7 fL (83.0-100.0); Mean Platelet Volume 10.2 fL (9.4-12.4); Monocytes # 0.9 K/mcL (0.0-1.3); Monocytes % 8.7 %; Neutrophils # 8.2 K/mcL (1.6-8.9); Platelet Count 263 K/mcL (140-400); Red Blood Count 3.22 M/mcL (4.19-5.50); Red Cell Distribution Width 15.7 % (11.5-14.5)
[2016-05-25 04:37] LABS: Albumin/Globulin Ratio 0.5 (1.1-2.2); Bilirubin,Total 0.4 mg/dL (0.2-1.2); Calcium 8.6 mg/dL (8.6-10.8); Globulin 3.8 g/dL (2.4-3.5); Potassium 4.3 mEq/L (3.5-4.5); Total Protein 5.7 g/dL (6.0-8.3)
[2016-05-25 04:49] LABS: Albumin 1.9 g/dL (3.5-5.0)
[2016-05-25] MEDS: *HR* Heparin 5,000 UNIT/ML VIAL SQ SCH ×2 (05:03→18:04)
[2016-05-25] MEDS: Insulin LISPRO 300 UNITS/3 ML VIAL SQ SCH ×4 (07:43→23:55)
[2016-05-25] MEDS ORDERED: 0.9 % Sodium Chloride 250 ML IV PRN (08:08)
--- NOTE | 2016-05-25 08:08 | Nephrology Progress Note ---
Date of Encounter: 05/25/16 Time of Encounter: 08:07 - Assessment and Plan (1) ANASTACIO (acute kidney injury) Current Visit: Yes Status: Acute Patient shows no sign of renal recovery. He remains dialysis dependent. The patient has agreed to chronic dialysis. He will have a PermCath placed later today. He will then have dialysis following that procedure. (2) Chronic kidney disease, stage IV (severe) Current Visit: Yes Status: Acute (3) Benign hypertension with chronic kidney disease, stage IV Current Visit: Yes Status: Acute (4) Generalized weakness Current Visit: Yes Status: Acute Subjective Principal diagnosis: Viral illness, viral myocarditis Interval history: The patient was hypoglycemic earlier this morning. Currently he says he feels better. He is going to get a PermCath placed. He will have dialysis later today. Urine output was 300 mL yesterday. He still remains dialysis dependent. Objective - Vital Signs Vital signs: Vital Signs Temp Pulse Resp BP Pulse Ox 05/25/16 07:48 94.4 F L 05/25/16 07:17 62 28 130/52 92 L 05/25/16 03:13 97.8 F 64 18 154/56 95 05/24/16 23:50 98.3 F 56 18 128/58 93 L 05/24/16 19:54 98.1 F 57 22 139/58 93 L 05/24/16 15:10 98.7 F 60 16 149/49 98 05/24/16 11:38 97.8 F 80 18 133/62 92 L Intake and Output 05/24/16 05/25/16 05/25/16 23:59 07:59 15:59 Intake Total 120 / 120 Balance 120 / 120 Intake: Oral 120 / 120 Other: Meal Dinner Percent of Meal Consumed 0% Stool Size Large Stool Consistency soft formed Stool Color Brown Yellow # Bowel Movements 1 Weight 82.6 kg Blood Glucose* 202 67 Patient Weight 05/25/16 23:59 Weight 82.6 kg - General Appearance Exam: Patient appears alert and oriented. He is in no acute distress. Lungs diminished breath sounds. Heart regular rate and rhythm with a 2/6 ejection murmur. Abdomen is benign. There is some lower extremity swelling. There is a temporary dialysis catheter in the right internal jugular vein. - Lab 05/25/16 04:13 05/25/16 04:13 Most recent lab results ABG pH 7.27 pH Units (7.32-7.45) L 05/15/16 06:39 ABG pCO2 45 mmHg (35-45) 05/15/16 06:39 ABG pO2 89 mmHg (85-104) 05/15/16 06:39 ABG HCO3 20.7 mEQ/L (21-27) L 05/15/16 06:39 ABG O2 Saturation 95 % (95-98) 05/15/16 06:39 Calcium 8.6 mg/dL (8.6-10.8) 05/25/16 04:13 Phosphorus 4.3 mg/dL (2.3-4.7) 05/24/16 04:25 Magnesium 2.1 mg/dL (1.6-2.6) 05/19/16 04:30 - VTE Documentation of Mechanical Device: Graduated compression elastic hosiery Consult Discharge Plan - Plan Referrals: Cayden Rhoades MD [Partnered Physician] - 05/31/16 3:00 pm (This appointment will be [place]. ) Gunner Harley DO [Primary Care Provider] - (Patient is from [facility] No PCP appointment needed)
[2016-05-25] MEDS: Insulin DETEMIR 100 UNIT/ML X5UNITS SQ SCH (09:18)
[2016-05-25] MEDS: Sennosides/Docusate Sodium TABLET PO SCH ×2 (09:35→23:57)
[2016-05-25] MEDS: Thiamine (B-1) 100 MG TABLET PO SCH (09:35)
--- NOTE | 2016-05-25 09:56 | Event Note ---
Date of Encounter: 05/25/16 Time of Encounter: 09:50 Patient awake and alert - at bedside. Hoping for dialysis line placement today. Currently on elpidio hugger for low temp. States he is comfortable and has no complaints. Goals of care have been established and code status determined. Pateint desires [facility] for rehab and awaiting insurance approval. Palliative currently not managing any symptoms - will sign off. Please call if needed.
[2016-05-25] MEDS ORDERED: Clindamycin 600 MG/50 ML 600 MG/50 ML IV.SOLN IVPB STA (12:39)
--- NOTE | 2016-05-25 14:20 | Internal Med Progress Note ---
Date of Encounter: 05/25/16 Time of Encounter: 14:17 - Assessment and plan (1) Acute respiratory failure Current Visit: Yes Status: Acute Assessment and plan: Likely related to worsening renal failure and anemia. Improving oxygen requirements with hemodialysis, Continue supplemental oxygen; noted to require 2 L/m oxygen via nasal cannula. Qualifiers: Respiratory failure complication: hypoxia Qualified Code(s): J96.01 - Acute respiratory failure with hypoxia (2) Acute worsening of stage 4 chronic kidney disease Current Visit: Yes Status: Acute Assessment and plan: Nephrology on board. GFR with no improvement. Patient has decided to continue hemodialysis for now, planned for permacath placement today. will get HD today after permcath placement. Avoid new nephrotoxic agents and contrast. Continue sodium bicarbonate per nephrology, patient may need phosphate binders. (3) Anemia Current Visit: Yes Status: Chronic Assessment and plan: Likely related to worsening renal failure. Hemoglobin stable, at around 9, received 1 unit PRBC during this admission. Receiving erythropoietin with hemodialysis. also receiving iron sucrose. Qualifiers: Anemia type: unspecified type Qualified Code(s): D64.9 - Anemia, unspecified (4) Diabetes Current Visit: Yes Status: Chronic Assessment and plan: Continue Accu-Chek blood glucose monitoring . continue Levemir and low-dose sliding scale insulin. Diabetic diet. Qualifiers: Diabetes mellitus type: type 2 Diabetes mellitus complication status: with kidney complications Diabetes mellitus complication detail: with chronic kidney disease Diabetes mellitus vermin exterminator insulin use: without vermin exterminator use Chronic kidney disease stage: stage 4 (severe) Qualified Code(s): E11.22 - Type 2 diabetes mellitus with diabetic chronic kidney disease; N18.4 - Chronic kidney disease, stage 4 (severe) (5) Hypothyroid Current Visit: Yes Status: Chronic Qualifiers: Hypothyroidism type: acquired Qualified Code(s): E03.9 - Hypothyroidism, unspecified (6) Acute encephalopathy Current Visit: Yes Status: Resolved Assessment and plan: Likely related to her elderly age, sundowning, medications. Held narcotics and sedatives. Currently improved. (7) Elevated troponin I level Current Visit: Yes Status: Resolved Assessment and plan: Likely related to demand ischemia from respiratory failure along with possible viral myopericarditis. Echocardiogram showed preserved EF and moderate pericardial effusion with no e/o- tamponade. Cardiology signed off, no further inpatient intervention recommended. - Time Spent With Patient 25 - 35 minutes - Subjective Interval history: Patient seen at the bedside with the . Denies any complaints at this time. Patient willing to undergo dialysis for now, planned for PermCath placement today. Was noted to be hypothermic in the morning, temperature has recovered. With The warm blankets. Will get dialysis after the placement of permacath today.. Renal following. - Constitutional Vitals: Temp Pulse Resp BP Pulse Ox 97.5 F L 54 33 146/67 98 05/25/16 10:59 05/25/16 12:40 05/25/16 12:40 05/25/16 12:40 05/25/16 12:40 General appearance: Present: A&O X 2, answers questions appropriately Exam: General appearance: Present: A&O X 2, answers questions appropriately , hard of hearing. - Respiratory Respiratory exam: Present: CTAB. Absent: accessory muscle use, rales, rhonchi, wheezes - Cardiovascular Cardiovascular exam: Present: RRR, +S1, +S2. Absent: diastolic murmur, gallop, rubs, systolic murmur abdomen- soft, non tender, bs are present - Extremities Exam Extremities exam: Present: pedal edema, warm, radial pulses palpable and symetrical. Absent: calf tenderness, cyanotic Internal Medicine: Result - Labs CBC & Chem 7: 05/25/16 04:13 05/25/16 04:13 Labs: Short CBC 05/25/16 Range/Units 04:13 WBC 10.3 (4.3-11.1) K/mcL Hgb 9.0 L (12.9-16.9) g/dL Hct 27.6 L (37.5-50.1) % Plt Count 263 (140-400) K/mcL Neutrophils # 8.2 (1.6-8.9) K/mcL BMP 05/25/16 04:13 Sodium 134 L Potassium 4.3 Chloride 96 L Carbon Dioxide 28 BUN 71 H Creatinine 3.60 H Glucose 65 L Calcium 8.6 Liver Function 05/25/16 Range/Units 04:13 Total Bilirubin 0.4 (0.2-1.2) mg/dL AST 26 (5-34) Units/L ALT 24 (0-55) Units/L Alkaline Phosphatase 95 (38-126) Units/L Albumin 1.9 L (3.5-5.0) g/dL - ABG Interpretation ABG results: ABG ABG pH 7.27 pH Units (7.32-7.45) L 05/15/16 06:39 ABG pCO2 45 mmHg (35-45) 05/15/16 06:39 ABG pO2 89 mmHg (85-104) 05/15/16 06:39 ABG O2 Saturation 95 % (95-98) 05/15/16 06:39 PT/INR, D-dimer PT 13.6 Seconds (9.4-12.1) H 05/24/16 13:49 - Impressions Impressions Catheter Change 05/25/16 00:00 IMPRESSION: Successful ultrasound and fluoroscopy guided tunneled catheter placement . D/ / Renzo Juarez MD / Renzo Juarez MD Interpreting Provider: Renzo Juarez MD Guidance Needle Placement Ultrasound 05/25/16 00:00 IMPRESSION: Successful ultrasound and fluoroscopy guided tunneled catheter placement . D/ / Renzo Juarez MD / Renzo Juarez MD Interpreting Provider: Renzo Juarez MD - VTE Documentation of Mechanical Device: Graduated compression elastic hosiery Consult Discharge Plan - Plan Referrals: Cayden Rhoades MD [Partnered Physician] - 05/31/16 3:00 pm (This appointment will be [place]. ) Gunner Harley DO [Primary Care Provider] - (Patient is [facility] No PCP appointment needed)
[2016-05-25] MEDS ORDERED: 0.9 % Sodium Chloride 2,000 ML ONE (14:26)
[2016-05-25] MEDS: amLODIPine 5 MG TABLET PO SCH (18:05)
[2016-05-25] MEDS: Isosorbide MONOnitrate (24 HR) 30 MG TAB.ER.24H PO SCH (18:05)
[2016-05-25] MEDS: Acetaminophen 325 MG TABLET PO PRN (23:56)
[2016-05-25] MEDS: Mirtazapine 15 MG TABLET PO SCH (23:57)
[2016-05-26] MEDS ORDERED: Bumetanide 1 MG/4 ML VIAL IVP ONE (03:09)
[2016-05-26] MEDS: *HR* Heparin 5,000 UNIT/ML VIAL SQ SCH (06:55)
--- NOTE | 2016-05-26 08:47 | Nephrology Progress Note ---
Date of Encounter: 05/26/16 Time of Encounter: 08:45 - Assessment and Plan (1) ANASTACIO (acute kidney injury) Current Visit: Yes Status: Acute Patient is stable from a renal perspective. Unfortunately he shows no sign of renal recovery. He remains dialysis dependent. At this point he will continue to require dialysis every Monday. (2) Chronic kidney disease, stage IV (severe) Current Visit: Yes Status: Acute (3) Benign hypertension with chronic kidney disease, stage IV Current Visit: Yes Status: Acute (4) Generalized weakness Current Visit: Yes Status: Acute Subjective Principal diagnosis: Viral illness, viral myocarditis Interval history: Patient reports no new complaints. He remains oliguric and dialysis dependent. He had a tunneled dialysis catheter placed yesterday. Next dialysis will be tomorrow. Objective - Vital Signs Vital signs: Vital Signs Temp Pulse Resp BP Pulse Ox 05/26/16 07:47 97.7 F 76 15 141/54 93 L 05/26/16 04:06 97.5 F L 62 17 119/55 95 05/26/16 02:36 97.8 F 66 122/56 95 05/25/16 23:09 98.4 F 76 19 140/52 94 L 05/25/16 20:09 97.9 F 80 20 148/43 92 L 05/25/16 16:48 97.5 F L 67 26 157/57 95 05/25/16 16:30 97.5 F L 22 144/57 05/25/16 16:20 140/63 05/25/16 16:05 128/50 05/25/16 15:50 128/58 05/25/16 15:35 138/57 05/25/16 15:20 132/57 05/25/16 15:05 139/56 05/25/16 14:50 143/59 05/25/16 14:35 139/56 05/25/16 14:20 138/57 05/25/16 14:05 148/58 05/25/16 13:50 139/61 05/25/16 13:35 133/59 05/25/16 13:20 97.5 F L 20 133/58 05/25/16 12:40 54 33 146/67 98 05/25/16 10:59 97.5 F L 66 28 136/46 95 Intake and Output 05/25/16 05/26/16 05/26/16 23:59 07:59 15:59 Intake Total 0 / 0 0 / 0 Output Total 3600 / 3600 0 / 0 Balance -3600 / -3600 0 / 0 Intake: Oral 0 / 0 0 / 0 Output: Urine 0 / 0 0 / 0 Total Dialysis Output 3600 / 3600 Other: Stool Size Large Large Stool Consistency soft soft formed formed Stool Color Brown Brown Yellow Yellow # Bowel Movements 1 1 Blood Glucose* 303 137 Hemodialysis Net Fluid 3000 Removed (mL) - General Appearance Exam: Patient is alert and oriented. He is in no acute distress. Lungs sounds. Heart regular rhythm with a 2/6 soft ejection murmur. Abdomen is benign. Patient continues to have some mild lower extremity swelling but overall improved. There is a tunnel dialysis catheter in the right chest. - Lab 05/25/16 04:13 05/25/16 04:13 Most recent lab results ABG pH 7.27 pH Units (7.32-7.45) L 05/15/16 06:39 ABG pCO2 45 mmHg (35-45) 05/15/16 06:39 ABG pO2 89 mmHg (85-104) 05/15/16 06:39 ABG HCO3 20.7 mEQ/L (21-27) L 05/15/16 06:39 ABG O2 Saturation 95 % (95-98) 05/15/16 06:39 Calcium 8.6 mg/dL (8.6-10.8) 05/25/16 04:13 Phosphorus 4.3 mg/dL (2.3-4.7) 05/24/16 04:25 Magnesium 2.1 mg/dL (1.6-2.6) 05/19/16 04:30 - VTE Documentation of Mechanical Device: Graduated compression elastic hosiery Consult Discharge Plan - Plan Referrals: Cayden Rhoades MD [Partnered Physician] - 05/31/16 3:00 pm (This appointment will be [place]. ) Gunner Harley DO [Primary Care Provider] - (Patient is from [facility] No PCP appointment needed)
[2016-05-26] MEDS ORDERED: Insulin DETEMIR 100 UNIT/ML X5UNITS SQ SCH (09:00)
[2016-05-26 09:12] LABS: Basophils % 0.2 %; Eosinophils % 0.2 %; Hematocrit 31.1 % (37.5-50.1); Hemoglobin 9.5 g/dL (12.9-16.9); Immature Granulocytes % 0.6 % (0-4); Lymphocytes # 1.1 K/mcL (0.6-4.6); Lymphocytes % 8.7 %; Mean Corpuscular HGB Conc 30.5 g/dL (31.6-35.5); Mean Corpuscular Volume 88.4 fL (83.0-100.0); Mean Platelet Volume 10.5 fL (9.4-12.4); Monocytes # 0.9 K/mcL (0.0-1.3); Monocytes % 6.9 %; Neutrophils # 10.8 K/mcL (1.6-8.9); Platelet Count 284 K/mcL (140-400); Red Blood Count 3.52 M/mcL (4.19-5.50); Red Cell Distribution Width 16.2 % (11.5-14.5); Segmented Neutrophils % 83.4 %
[2016-05-26 09:23] LABS: Calcium 8.6 mg/dL (8.6-10.8); Potassium 4.7 mEq/L (3.5-4.5)
[2016-05-26] MEDS: Insulin LISPRO 300 UNITS/3 ML VIAL SQ SCH ×2 (09:27→11:46)
[2016-05-26] MEDS: Thiamine (B-1) 100 MG TABLET PO SCH (09:28)
[2016-05-26] MEDS: Sennosides/Docusate Sodium TABLET PO SCH (09:28)
[2016-05-26 11:34] VITALS: BP 127/53
--- NOTE | 2016-05-26 14:04 | Discharge Summary ---
Date of Encounter: 05/26/16 Time of Encounter: 14:00 - Discharge Diagnosis (1) Acute respiratory failure Priority: Primary Status: Acute Qualifiers: Respiratory failure complication: hypoxia Qualified Code(s): J96.01 - Acute respiratory failure with hypoxia (2) Acute worsening of stage 4 chronic kidney disease Priority: Primary Status: Deleted (3) Anemia Priority: Secondary Status: Chronic Qualifiers: Anemia type: unspecified type Qualified Code(s): D64.9 - Anemia, unspecified (4) Diabetes Priority: Secondary Status: Deleted Qualifiers: Diabetes mellitus type: type 2 Diabetes mellitus complication status: with kidney complications Diabetes mellitus complication detail: with chronic kidney disease Diabetes mellitus termite exterminator helper insulin use: without termite exterminator helper use Chronic kidney disease stage: stage 4 (severe) Qualified Code(s): E11.22 - Type 2 diabetes mellitus with diabetic chronic kidney disease; N18.4 - Chronic kidney disease, stage 4 (severe) (5) Hypothyroid Priority: Secondary Status: Chronic Qualifiers: Hypothyroidism type: acquired Qualified Code(s): E03.9 - Hypothyroidism, unspecified (6) Acute encephalopathy Priority: Primary Status: Deleted (7) Elevated troponin I level Priority: Secondary Status: Resolved - Discharge Medications Home Medications: Amlodipine [Norvasc] 5 mg PO QPM 02/11/15 [History] Aspirin 81 mg PO QPM 02/11/15 [History] Calcitriol [Rocaltrol] 0.25 mcg PO QAM 02/11/15 [History] Doxazosin [Cardura] 2 mg PO HS 02/11/15 [History] Isosorbide MONOnitrate [Isosorbide Mononitrate] 60 mg PO QPM 02/11/15 [History] Levothyroxine [Synthroid] 75 mcg PO QAM 02/11/15 [History] Albuterol Sulfate [Albuterol Inhaler] 1 puff IH Q6HR 5 Days 02/14/15 [Rx] Allopurinol [Zyloprim 100 MG] 100 mg PO DAILY 05/09/16 [History] Ferrous Sulfate [Iron] 325 mg PO BID 05/09/16 [History] Omeprazole 10 mg PO DAILY 05/09/16 [History] Sodium Bicarbonate 650 mg PO BID 05/09/16 [History] Allergies/Adverse Reactions: Allergies furosemide [From Lasix] Allergy (Verified 05/09/16 10:43) Rash Penicillins [PCN] Allergy (Verified 05/09/16 10:43) Rash Procedures/tests Complete & Pending: Procedures Performed prior 72 hours Category Date Time Status IR cvc replace central tunnel [IR] Routine IR 05/25/16 Completed IR us guide needle place [IR] Routine IR 05/25/16 Completed Date of admission: 05/11/16 16:51 Primary care physician: Gunner Harley Consults: 05/13/16 10:11 Consult to Nephrology [CONS] Routine Consulting Provider: Kidney & HTN Spclst DOC Reason for Consult: Acute on chronic renal failure Call Completed: Yes 05/14/16 10:29 Consult to Physical Therapy [CONS] Routine Comment: Evaluate, develop and implement POC 05/14/16 18:32 dietary consult [Consult to Nutrition] [CONS] Routine Comment: Consulting Provider: NUTRITION Reason for Dietary Consult: Diet Education Supplemental Nutrition 05/18/16 09:00 Consult to Dialysis [CONS] ONCE 05/19/16 13:30 Consult to Dialysis [CONS] ONCE 05/20/16 10:15 Consult to Dialysis [CONS] ONCE 05/21/16 09:15 Consult to Dialysis [CONS] ONCE 05/22/16 09:15 Consult to Dialysis [CONS] ONCE 05/23/16 08:30 Consult to Dialysis [CONS] ONCE 05/23/16 14:31 Consult to Palliative Care [CONS] Routine Comment: Consulting Provider: Palliative Care Brissa 05/24/16 13:26 Consult to Interventional Radiology [CONS] Routine Consulting Provider: Radiology Interventional Cols Reason for Consult: Remove temporary IJ dialysis catheter, place tunneled dialysis catheter Time Notified: 13:26 Call Completed: No 05/25/16 08:15 Consult to Dialysis [CONS] ONCE Discharging clinician: Anibal Gibson Anticipated date of discharge: 05/26/16 - Patient Status Disposition: Transfer SNF Condition: Fair Functional capacity at discharge: uses cane/walker Overall status at discharge: patient is progressing back to baseline - Discharge Instructions Instructions: Diabetes Mellitus Type 2 in Adults (DC) Follow Up With: Cayden Rhoades MD [Partnered Physician] - 05/31/16 3:00 pm (This appointment will be [place]. ) Gunner Harley, [Primary Care Provider] - (Patient is from E[facility] No PCP appointment needed) - Diet and Activity Activity: as per physical therapy Diet: other (renal diet) Interval History: This is an 89-year-old male who is followed as an outpatient for stage IV chronic kidney disease. Patient was admitted with a 3 day history of nausea vomiting and weakness. He was treated with IV fluids. The time of admission his creatinine was 2.74 and BUN was 78. Baseline creatinine ranges from 2.1- 2.6. Patient reports he does have difficulty emptying his bladder at times. he was admitted for ANASTACIO on CKD possible viral etiology. His states he still not eating and drinking much. He had an echocardiogram which showed a relatively well-preserved left ventricular ejection fraction. Blood pressure is been stable. renal US was done that showed no hydronephrosis and had mildly enlarged prostate . NEPHROLOGY WAS consulted ,Patient continued to have worsening renal function with oliguria, he was started on IV bumex trial. however there was no improvement in renal fxn and he underwent HD with the temporary catheter. There is currently no sign of renal recovery. The patient remains dialysis dependent. HE agreed finally on getting tunneled dialysis catheter which was placed. he will follow up with HD 3xweek , he is being dc in stable condition. Hospital course: Mr. Hilario is a 89 year old male Time spent discussing smoking cessation with patient: more than 10 minutes - Time Spent with Patient Total time spent providing and/or coordinating discharge services: Greater than 30 minutes - Constitutional Vitals: Temp Pulse Resp BP Pulse Ox 97.7 F 53 16 127/53 97 05/26/16 11:27 05/26/16 11:27 05/26/16 11:27 05/26/16 11:27 05/26/16 11:27 General appearance: Present: A&O X 2, answers questions appropriately Exam: - Respiratory Respiratory exam: Present: CTAB. Absent: accessory muscle use, rales, rhonchi, wheezes - Cardiovascular Cardiovascular exam: Present: RRR, +S1, +S2. Absent: diastolic murmur, gallop, rubs, systolic murmur abdomen- soft, non tender, bs are present - Extremities Exam Extremities exam: Present: pedal edema, warm, radial pulses palpable and symetrical. Absent: calf tenderness, cyanotic - VTE Documentation of Mechanical Device: Graduated compression elastic hosiery
--- NOTE | 2016-05-26 14:06 | Physician Discharge Referral ---
ExtendedCare Referral Info Transfer To: ECF Provider in Charge: levi wylie Institutional Level of Care: Intermediate - MR - Diagnosis (1) Acute respiratory failure Status: Acute (2) Acute worsening of stage 4 chronic kidney disease Status: Acute (3) Anemia Status: Chronic (4) Diabetes Status: Chronic (5) Hypothyroid Status: Chronic (6) Acute encephalopathy Status: Resolved (7) Elevated troponin I level Status: Resolved - Transfer Medications Home Medications: Amlodipine [Norvasc] 5 mg PO QPM 02/11/15 [History] Aspirin 81 mg PO QPM 02/11/15 [History] Calcitriol [Rocaltrol] 0.25 mcg PO QAM 02/11/15 [History] Doxazosin [Cardura] 2 mg PO HS 02/11/15 [History] Isosorbide MONOnitrate [Isosorbide Mononitrate] 60 mg PO QPM 02/11/15 [History] Levothyroxine [Synthroid] 75 mcg PO QAM 02/11/15 [History] Albuterol Sulfate [Albuterol Inhaler] 1 puff IH Q6HR 5 Days 02/14/15 [Rx] Allopurinol [Zyloprim 100 MG] 100 mg PO DAILY 05/09/16 [History] Ferrous Sulfate [Iron] 325 mg PO BID 05/09/16 [History] Omeprazole 10 mg PO DAILY 05/09/16 [History] Sodium Bicarbonate 650 mg PO BID 05/09/16 [History] Allergies/Adverse Reactions: Allergies furosemide [From Lasix] Allergy (Verified 05/09/16 10:43) Rash Penicillins [PCN] Allergy (Verified 05/09/16 10:43) Rash - Respiratory Orders Oxygen / L per min (4l/min) Smoking Cessation: Smoking cessation has been advised. For more information, call the [employer] Tobacco Quit Line at 1-831-YIXN-NOW. - Advance Directives Code Status: DNR-Arrest/Don't Intubate - Mobility Orders Chair - Rehabiliation Orders Rehab Potential: Fair Rehab Orders: Evaluation for Physical Therapy, Evaluation for Occupational Therapy - Diet Orders Renal CERTIFICATION: I certify that the transfer of the above named patient to an Extended Care Facility is necessary for the continuing treatment of the diagnosis listed. The above information is true and accurate reflection of patient's current condition. Confidential - Redisclosure prohibited without a patient's written consent.
== END 2016-05-26 15:21 | DRG 682 ==
LOC: 3BNU 08:37 → EMEROO 08:37 → SUATTDRO 11:27 → 3BNU 11:45 → SUATTDRO 05-11 16:51 → 2NNU 05-15 11:06 → 2ANU 05-21 18:28
PROVIDERS: ADMIT Family Medicine; ATTEND Internal Medicine Endocrinology, Diabetes & Metabolism
PROC: IRPERMA (2016-05-25 12:00)